=== PATIENT | female | born 1995 | race Caucasian/White ===

== ENCOUNTER 2020-05-21 19:09 | Emergency (ER) | payer BC ==
--- OUTSIDE RECORDS SUMMARY | 2020-05-21 19:12 | XMS REPORT | Summary of Care ---
:1995 Author Organization [facility] - [facility] Address [address] [place] [id number] Care Team Providers Name Role Phone Curt Bell MD Primary Care Provider Unavailable Reason for Visit Reason Comments Cough x 4 days Headache Shortness of Breath Encounter Details Date Type Department Care Team Description 02/28/2020 Urgent Care [facility] Family Jessica Canas FNP [address] [place] [id number] URI with cough and congestion (Primary D x); Medicine - [facility] Suspected Covid-19 Virus Infection; [address] [place] [address] Acute fly ntractable headache, [place] [phone] Allergies No Known Allergiesdocumented as of this encounter (statuses as of 02/28/2020) Medications Medication Sig Dispensed Refills Start Date End Date Status Take by mouth. 0 Acti ve NO122/IRON/FOLIC ACID ( MULTI ORAL) ibuprofen 600 mg Take 1 tablet by 60 tablet 1 09/29/2017 Active tablet mouth every 6 (six) hours as needed for Pain (scale 1-3) or Pain (scale 4-6) (Pain). Take with food or milk. HYDROcodone-acetam Take 1 tablet by 30 tablet 0 09/29/2017 Active inophen (NORCO) mouth every 6 (six) 10-325 mg tablet hours as needed for Pain (scale 1-3), Pain (scale 4-6) or Pain (scale 7-10). ibuprofen 800 mg Take 1 tablet by 60 tablet 0 09/29/2017 Active tablet mouth every 8 (eight) hours as needed for Pain (scale 1-3). brompheniramine-ps Take 5 mL by mouth 4 200 mL 0 02/28/2020 03/09/2020 Active eudoephedrine-DM (four) times daily (BROMFED DM) as needed for 2-30-10 mg/5 mL Congestion/Allergies syrupIndications: for up to 10 days. URI with cough and congestion albuterol Inhale 2 Puffs every 8.5 g 0 02/28/2020 03/29/20 20 Active (VENTOLIN HFA) 90 6 (six) hours as mcg/actuation needed for inhalerIndications Bronchospasm or : URI with cough Chest tightness for and congestion up to 30 days. documented as of this encounter (statuses as of 02/28/2020) Active Problems Problem Noted Date Liveborn by 09/29/2017 Postmaturity , 40-42 weeks gestation 09/26/19 18 Unfavorable cervix in term 09/26/2017 39 weeks gestation of 09/26/2017 documented as of this encounter (statuses as of 02/28/2020) Immunizations Name Administration Dates Next Due Rho (d) Immune Globulin 09/28/2017 documented as of this encounter Social History Tobacco Use Types Packs/Day Years Used Date Never Smoker Smokeless Tobacco: Never Used Alcohol Use Drinks/Week oz/Week Comments No Sex Assigned at Date Recorded Not on file Job Start Date Occupation Industry Not on file Not on file Not on file Travel History Travel Start Travel End No recent travel history available. COVID-19 Exposure Response Date Recorded In the last month, have you been in contact with No / Unsure 02/28/2020 3:56 PM CDT someone who was confirmed or suspected to have Coronavirus / COVID-19? documented as of this encounter Last Filed Vital Signs Vital Sign Reading Time Taken Comments Blood Pressure 123/71 02/28/2020 4:05 PM CDT Pulse 77 02/28/2020 4:05 PM CDT Temperature 37.2 C (99 F) 02/28/2020 4:05 PM CDT Respiratory Rate 17 02/28/2020 4:05 PM CDT Oxygen Saturation 99% 02/28/2020 4:05 PM CDT Inhaled Oxygen Concentration - - Weight 68 kg (150 lb) 02/28/2020 4:05 PM CDT Height 162.6 cm (5' 4") 02/28/2020 4:05 PM CDT Body Mass Index 25.75 02/28/2020 4:05 PM CDT documented in this encounter Patient Instructions Patient InstructionsAdriane Canas FNP - 02/28/2020 4:00 PM CDT Patient Education Self-Care for Headaches Most headaches aren't serious and can be relieved with self-care. But some headaches may be a sign of another health problem like eye trouble or high blood pressure. To find the best treatment, learn what kind of headaches you get. For tension headaches, self-care will usually help. To treat migraines, ask yourhealthcare providerfor advice. It is also possible to get both tension and migraine headaches. Self-care involves relieving the pain and avoiding headache triggers if you can. Ways to reduce pain and tension Try these steps: Apply a cold compress or ice pack to the pain site. Drink fluids. If nausea makes it hard to drink, try sucking on ice. Rest. Protect yourself from bright light and loud noises. Calm your emotions by imagining a peaceful scene. Massage tight neck, shoulder, and head muscles. To relax muscles, soak in a hot bath or use a hot shower. Use medicines Aspirin or other gayf-kvw-rmqrjon pain medicines, such as ibuprofen and acetaminophen, can relieve headache. Remember: Never give aspirin to anyone 18 years old or younger because of the risk of developing Hollie syndrome. Use pain medicines only when needed. Certain prescription medicines, if taken toooften, can lead to rebound headaches. Check with your healthcare provider or pharmacist about your medicines. Track your headaches Keeping a headache diary can help you and yourhealthcare provideridentify what's causing your headaches: Note when each headache happens. Identify your activities and the foods you've eaten6 to 8hours before the headache began. Look for any trends or "triggers." Signs of tension headache Any of the following can be signs: Dull pain or feeling of pressure in a tight band around your head Pain in your neck or shoulders Headache without a definite beginning or end Headache after an activity such as driving or working on a computer Signs of migraine Any of the following can be signs: Throbbing pain on one or both sides of your head Nausea or vomiting Extreme sensitivity to light, sound, and smells Bright spots, flashes, or other visual changes Pain or nausea so severe that you can't continue your daily activities Call yourhealthcare provider If you have any of the following symptoms, contact your healthcare provider: A headache that lingers after a recent injury or bump to the head. A fever with a stiff neck or pain when you bend your head toward your chest. A headache along with slurred speech, changes in your vision, or numbness or weakness in your arms or legs. A headache for longer than3 days. Frequent headaches,especially in the morning. Headaches with seizures Seek immediate medical attention if you have a headache that you would call "the worst headache you have ever had." [employer] reviewed this educational content on 11/03/201719990309-2942 [employer]. [address] [place] [address]. All rights reserved. This information is not intended as a substitute for professional medical care. Always follow your healthcare professional's instructions. Patient Education Viral Upper Respiratory Illness (Adult) You have a viral upper respiratory illness (URI), which is another term for the common cold. This illness is contagious during the first few days. It is spread through the air by coughing and sneezing.It may also be spread by direct contact (touching the sick person and then touching your own eyes, nose, or mouth). Frequent handwashing will decrease risk of spread. Most viral illnesses go away within 7 to 10 days with rest and simple home remedies. Sometimes the illness may last for several weeks. Antibiotics will not kill a virus, and they are generally not prescribed for this condition. Home care If symptoms are severe, rest at home for the first 2 to 3 days. When you resume activity, don't let yourself get too tired. Don't smoke. If you need help stopping, talk with your healthcare provider. Avoid being exposed to cigarette smoke (yours or others). You may use acetaminophen or ibuprofen to control pain and fever, unless another medicine was prescribed.If you have chronic liver or kidney disease, have ever had a stomach ulcer or gastrointestinal bleeding, or are taking blood- thinning medicines, talk with your healthcare provider before usingthese medicines. Aspirin should never be given to anyone under 18 years of age who is ill with a viral infection or fever. It may cause severe liver or brain damage. Your appetite may be poor, so a light diet is fine. Stay well hydrated by drinking 6 to 8 glassesof fluids per day (water, soft drinks, juices, tea, or soup). Extra fluids will help loosen secretions in the nose and lungs. Tiny-lpb-llbjzwl cold medicines will not shorten the length of time youre sick, but they may be helpful for the following symptoms: cough, sore throat, and nasal and sinus congestion. If you takeprescription medicines, ask your healthcare provider or pharmacist which pfkf-yby-zkrtrbe medicines are safe to use. (Note: Don't use decongestants if you have high blood pressure.) Follow-up care Follow up with your healthcare provider, or as advised. When to seek medical advice Call your healthcare provider right away if any of these occur: Cough with lots of colored sputum (mucus) Severe headache; face, neck, or ear pain Difficultyswallowingdue to throat pain Fever of 100.4F (38C) or higher, or as directed by your healthcare provider Call 911 Call 911 if any of these occur: Chest pain, shortness of breath, wheezing, or difficulty breathing Coughing up blood Very severe pain with swallowing, especially if it goes along with a muffled voice [employer] last reviewed this educational content on 02/03/201819996787-1737 [employer]. [address] [place] [address]. All rights reserved. This information is not intended as a substitute for professional medical care. Always follow your healthcare professional's instructions. documented in this encounter Progress Notes Adriane Canas FNP - 02/28/2020 4:00 PM CDT Cc: Chief Complaint Patient presents with Cough x 4 days Headache Shortness of Breath Maricruz Bacon is a 24 year old female. Patient is her with URI symptoms as detailed below. Cough Cough characteristics: Dry Sputum characteristics: Nondescript Severity: Mild Onset quality: Gradual Duration: 2 days Timing: Intermittent Progression: Unchanged Chronicity: New Smoker: no Context: not exposure to allergens and not weather changes Relieved by: Nothing Worsened by: Nothing Associated symptoms: headaches, shortness of breath and sinus congestion Associated symptoms: no chest pain and no wheezing Headaches: Severity: Mild Onset quality: Gradual Timing: Intermittent Progression: Unchanged Chronicity: New Shortness of breath: Severity: Mild Onset quality: Gradual Timing: Sporadic Progression: Resolved Allergies Maricruz has No Known Allergies. Medications Outpatient Medications Prior to Visit Medication Sig Dispense Refill HYDROcodone-acetaminophen (NORCO) 10-325 mg tablet Take 1 tablet by mouth every 6 (six) hours asneeded for Pain (scale 1-3), Pain (scale 4-6) or Pain (scale 7-10). 30 tablet 0 ibuprofen 600 mg tablet Take 1 tablet by mouth every 6 (six) hours as needed for Pain (scale 1-3) or Pain (scale 4-6) (Pain). Take with food or milk. 60 tablet 1 ibuprofen 800 mg tablet Take 1 tablet by mouth every 8 (eight) hours as needed for Pain (scale 1-3). 60 tablet 0 NO122/IRON/FOLIC ACID ( MULTI ORAL) Take by mouth. No facility-administered medications prior to visit. Histories Past Medical History: Diagnosis Date Anxiety Back pain with Esophageal reflux only and well controlled Past Surgical History: Procedure Laterality Date SECTION N/A 09/27/2017 Surgeon: Beny Bell MD; Location: [facility] OR Location TONSILLECTOMY Social History Socioeconomic History Marital status: Single Spouse name: Not on file Number of children: Not on file Years of education: Not on file Highest education level: Not on file Occupational History Not on file Social Needs Financial resource strain: Not on file Food insecurity: Worry: Not on file Inability: Not on file Transportation needs: Medical: Not on file Non-medical: Not on file Tobacco Use Smoking status: Never Smoker Smokeless tobacco: Never Used Substance and Sexual Activity Alcohol use: No Drug use: No Sexual activity: Not on file Lifestyle Physical activity: Days per week: Not on file Minutes per session: Not on file Stress: Not on file Relationships Social connections: Talks on phone: Not on file Gets together: Not on file Attends sabianist service: Not on file Active member of club or organization: Not on file Attends meetings of clubs or organizations: Not on file Relationship status: Not on file Intimate partner violence: Fear of current or ex partner: Not on file Emotionally abused: Not on file Physically abused: Not on file Forced sexual activity: Not on file Other Topics Concern Not on file Social History Narrative Not on file No family history on file. Review of Systems Constitutional: Negative. Eyes: Negative. Respiratory: Positive for cough and shortness of breath. Negative for apnea, choking, chest tightness and wheezing. Cardiovascular: Negative. Negative for chest pain, palpitations and leg swelling. Gastrointestinal: Negative. Skin: Negative. Neurological: Positive for headaches. Endocrine: Endocrine negative Vital Signs BP 123/71 | Pulse 77 | Temp 37.2 C (99 F) (Oral) | Resp 17 | Ht 5' 4" (1.626 m) | Wt 150 lb(68 kg) | LMP 02/24/2020 | SpO2 99% | BMI 25.75 kg/m Physical Exam Constitutional: She is oriented to person, place, and time. She appears well- developed and well-nourished. HENT: Head: Normocephalic. Right Ear: Hearing, tympanic membrane, external ear and ear canal normal. Left Ear: Hearing, tympanic membrane, external ear and ear canal normal. Nose: Nose normal. Right sinus exhibits no maxillary sinus tenderness and no frontal sinus tenderness. Left sinus exhibits no maxillary sinus tenderness and no frontal sinus tenderness. Mouth/Throat: Uvula is midline, oropharynx is clear and moist and mucous membranes are normal. No oropharyngeal exudate, posterior oropharyngeal edema or posterior oropharyngeal erythema. No tonsillar exudate. Neck: Normal range of motion. Neck supple. Cardiovascular: Normal rate, regular rhythm, normal heart sounds and intact distal pulses. Exam reveals no gallop and no friction rub. No murmur heard. Pulmonary/Chest: Effort normal and breath sounds normal. No respiratory distress. She has no wheezes. She has no rales. She exhibits no tenderness. Abdominal: Soft. Bowel sounds are normal. She exhibits no distension. There is no tenderness. Lymphadenopathy: Head (right side): No submental, no submandibular, no tonsillar, no preauricular and no posterior auricular adenopathy present. Head (left side): No submental, no submandibular, no tonsillar, no preauricular and no posterior auricular adenopathy present. She has no cervical adenopathy. Neurological: She is alert and oriented to person, place, and time. Skin: Skin is warm and dry. Capillary refill takes less than 2 seconds. No rash noted. No erythema. No pallor. Psychiatric: She has a normal mood and affect. Nursing note and vitals reviewed. Assessment/Plan 1. URI acute: covid test done pending result. In the meantime, quarantine in place, treat symptoms with OTC meds, Tylenol as needed but no NSAIDs.Stay in quarantine until symptoms subsides, plus 3 days afterwards or until you hear otherwise. Follow up with your PCP as needed, and if with worsening of symptoms, any respiratory distress, go to theER. Bromfed given for symptoms relief. Clinical reference for Homecare instructions reviewed , copy given. 2. Headache: exam unremarkable, covid test pending. May take Tylenol as needed as an abortive therapy. If worse, worse pain ever or new onset of symptoms, go to the ER. Plan of care, desired health behaviors, goals, and medication discussed with patient. Education resources provided and reviewed with AVS. Patient/guardian/family verbalized understanding & agrees to plan of care. This visit did not involve counseling and coordination that comprised more than 50% of the visit time. If applicable, the [place] [employer] database was accessed to review any controlled substance prescription claims data. The [employer] prescription claims data in [place] was reviewed to assess patient compliance with the medication treatment plan. Eva Chapman RN - 02/28/2020 4:00 PM CDT Maricruz Bacon is a 24 year old female in office for the following: Chief Complaint Patient presents with Cough Headache Shortness of Breath Patient educated on plan of care for visit, swabbing technique, risks and benefits of test and length of time to receive results. Verbal consent obtained to perform test. CDC Fact Sheet for Patients nCoV Diagnostic Panel dated 11/18/2019 provided. Patient reports taking theraflu day time and night All vitals taken. Allergies reviewed. All medications reviewed. Fall risk assessed. Level of pain 0. [id number] - [place], [place] - [address] [employer] Eva Gentile RN 02/28/2020 4:02 PM documented in this encounter Plan of Treatment Name Type Priority Associated Diagnoses Order S boo COVID-19 (PCR MOLECULAR LAB Routine Suspected Covid-1 9 Virus Expected: 02/28/2020, TESTING) Infection Expires: 2020 Health Maintenance Due Date Last Done Comments VARICELLA VACCINES (1 of 2 - 2-dose 1998 childhood series) MENINGOCOCCAL B VACCINES (1 of 2 - 2007 Risk Bexsero 2-dose series) DTaP,Tdap,and Td Vaccines (1 - 2008 Tdap) HPV VACCINES (1 - Female 2-dose 2008 series) Depression Screening 2009 CHLAMYDIA SCREENING 2013 PAP SMEAR 2018 INFLUENZA VACCINE (Season Ended) 2020 MENINGOCOCCAL VACCINE Aged Out No longer eligible based on patient's age to complete this topic PNEUMOCOCCAL 0-64 YEARS COMBINED Aged Out No longer eligible based on SERIES patient's age to complete this topic documented as of this encounter Results Not on filedocumented in this encounter Visit Diagnoses Diagnosis URI with cough and congestion - Primary Suspected Covid-19 Virus Infection Acute nonintractable headache, unspecifi ed headache type documented in this encounter Insurance Payer Benefit Plan Subscriber ID Effective Dates Phone Address Type / Group [facility] [id number] 2009-Breana [phone] [address] PPO/POS [id number] [place] [address] (Home) [employer] [phone] [place], [place] (Work) [id number] documented as of this encounter
--- OUTSIDE RECORDS SUMMARY | 2020-05-21 19:12 | XMS REPORT | Continuity of Care Document ---
:1995 Author Organization [facility] t Address [address] [place] [address] Care Team Providers Name Role Phone Pob1, [facility] Attending Clinician Unavailable Problems This patient has no known problems. Allergies, Adverse Reactions, Alerts This patient has no known allergies or adverse reactions. Medications This patient has no known medications. Procedures This patient has no known procedures. Encounters Start End Encounter Admission Attending Care Care Encounter Source Date/Time Date/Time Type Type Clinicians Facility Department ID 2020-02-28 2020-02-28 Urgent Pob1, Acute [facility] [id number] 15:50:11 16:10:11 [facility] [id number] [place] [id number] Miguel [id number] [address] Results This patient has no known results.
[2020-05-21 20:51] LABS: Absolute Lymphocytes (CBC) 2.4 K/uL (0.7-4.9); Basophils % 0.4 % (0-1.3); Lymphocytes % 26.7 % (15.3-44.8); MPV 8.2 fL (7.6-11.3); RBC Red Blood Cell Count 4.03 M/uL (3.86-4.86)
[2020-05-21 21:11] LABS: ALT/SGPT 20 U/L (12-78); AST/SGOT 13 U/L (15-37); Albumin 3.6 g/dL (3.4-5.0); Alkaline Phosphatase 46 U/L (45-117); BUN Blood Urea Nitrogen 10 mg/dL (7-18); Bicarbonate 24 mmol/L (21-32); Bilirubin Direct < 0.1 mg/dL (0-0.2); Bilirubin Total 0.2 mg/dL (0.2-1.0); Glucose Level 90 mg/dL (74-106); Lipase 59 U/L (73-393); Potassium 3.7 mmol/L (3.5-5.1); Sodium Level 139 mmol/L (136-145)
[2020-05-21] MEDS ORDERED: ONDANSETRON 4 MG/2 ML VIAL ONE (21:15)
[2020-05-21] MEDS ORDERED: NA CHLORIDE 0.9% 1,000 ML ONE (21:15)
[2020-05-21] MEDS ORDERED: ACETAMINOPHEN 500 MG TAB ONE (21:50)
[2020-05-21 22:02] LABS: Urine Blood TRACE (NEG); Urine Glucose NEGATIVE (NEG); Urine Protein NEGATIVE (NEG); Urine Specific Gravity 1.015 (1.005-1.030)
--- NOTE | 2020-05-21 23:21 | ER ---
Nurse's Notes [facility] Name: Maricruz Bacon Age: 25 yrs Sex: Female : 1995 Arrival Date: 05/21/2020 Time: 19:10 Bed 6 Private MD: Diagnosis: Hyperemesis gravidarum with metabolic disturbance Presentation: 05/21 19:20 Chief complaint: Patient states: N/V for 1 month, about 10 weeks . G2, P1. ll1 Severe KELLER and neck pain for 1 week. Left ear feels like there is fluid in it. No known fever, but feels hot at home. Coronavirus screen: Client denies travel out of the [place] in the last 14 days. At this time, the client does not indicate any symptoms associated with coronavirus-19. Ebola Screen: Patient denies travel to an Ebola-affected area in the 21 days before illness onset. Initial Sepsis Screen: Does the patient meet any 2 criteria? HR > 90 bpm. No. Patient's initial sepsis screen is negative. Risk Assessment: Do you want to hurt yourself or someone else? Patient reports no desire to harm self or others. Onset of symptoms was April 20, 2020. 19:20 Method Of Arrival: Ambulatory ll1 19:20 Acuity: DELLA 3 ll1 20:00 Initial Sepsis Screen: Does the patient have a suspected source of infection? No. rr5 Patient's initial sepsis screen is negative. Triage Assessment: 19:20 General: Appears uncomfortable, Behavior is calm, cooperative. Pain: Complains of pain ll1 in head Quality of pain is described as aching, Pain began 2-3 days ago. Is continuous. EENT: Ear canal clear on left ear Reports feels like there is fluid in her left ear, no obvious drainge. 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 Full function Gait is steady, Speech is normal, Facial symmetry appears normal, Reports dizziness. Cardiovascular: No deficits noted. Respiratory: No deficits noted. GI: Abdomen is flat, Bowel sounds present X 4 quads. Abd is soft and non tender X 4 quads. Reports nausea, vomiting. : No deficits noted. Musculoskeletal: Circulation, motion, and sensation intact. Capillary refill < 3 seconds, Reports head and neck pain. 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 - Social history:: Smoking status: Patient/guardian denies using tobacco, Stopped _ months ago 4 Patient/guardian denies using alcohol, street drugs. Screenin:00 Abuse screen: Denies threats or abuse. Denies injuries from another. Nutritional rr5 screening: No deficits noted. Tuberculosis screening: No symptoms or risk factors identified. Fall Risk IV access (20 points). Total Ferrera Fall Scale indicates No Risk (0-24 pts). Assessment: 20:30 General: Appears in no apparent distress. uncomfortable, Behavior is calm, cooperative. rr5 20:30 Pain: Complains of pain in head and neck Pain currently is 7 out of 10 on a pain scale. rr5 Quality of pain is described as aching, Pain began gradually, Is intermittent. Neuro: Level of Consciousness is awake, alert, obeys commands, Oriented to person, place, time, situation, Reports headache. Cardiovascular: Capillary refill < 3 seconds Patient's skin is warm and dry. Respiratory: Airway is patent Respiratory effort is even, unlabored, Respiratory pattern is regular, symmetrical. GI: Abdomen is round Reports nausea, vomiting. : No signs and/or symptoms were reported regarding the genitourinary system. EENT: No signs and/or symptoms were reported regarding the EENT system. Derm: Skin is intact, is healthy with good turgor, Skin temperature is warm. Musculoskeletal: Circulation, motion, and sensation intact. Capillary refill < 3 seconds. 21:50 Reassessment: Patient appears in no apparent distress at this time. Patient is alert, rr5 oriented x 3, equal unlabored respirations, skin warm/dry/pink. for pain medicine given PO. 23:33 Reassessment: Patient appears in no apparent distress at this time. Patient is alert, rr5 oriented x 3, equal unlabored respirations, skin warm/dry/pink. discharge instruction given and explained without complaints made. Vital Signs: 19:20 BP 139 / 79; Pulse 99; Resp 18; Temp 98.5; Pulse Ox 99% ; Pain 7/10; ll1 21:48 BP 110 / 86; Pulse 90; Resp 16; Pulse Ox 99% ; rr5 23:00 BP 112 / 73; Pulse 85; Resp 16; Pulse Ox 98% on R/A; rr5 23:33 BP 115 / 70; Pulse 80; Resp 19; Pulse Ox 99% ; rr5 ED Course: 19:10 Patient arrived in ED. cl3 19:23 Triage completed. ll1 19:24 Arm band placed on. ll1 20:21 Sundeep Crooks MD is Attending Physician. tw4 20:26 Elian Booth RN is Primary Nurse. rr5 20:30 Patient has correct armband on for positive identification. Bed in low position. Call rr5 light in reach. Pulse ox on. NIBP on. 20:37 Inserted saline lock: 20 gauge in left antecubital area, using aseptic technique. Blood rr5 collected. 23:33 No provider procedures requiring assistance completed. IV discontinued, intact, rr5 bleeding controlled, No redness/swelling at site. Pressure dressing applied. Administered Medications: 21:07 Drug: NS 0.9% 1000 ml Route: IV; Rate: 1 bolus; Site: left antecubital; rr5 22:10 Follow up: Response: No adverse reaction; IV Status: Completed infusion; IV Intake: rr5 1000ml 21:07 Drug: Zofran (Ondansetron) 4 mg Route: IVP; Site: left antecubital; rr5 22:00 Follow up: Response: No adverse reaction rr5 21:44 Drug: Tylenol 1000 mg Route: PO; rr5 22:40 Follow up: Response: No adverse reaction rr5 23:26 Drug: Lidoderm 5 % (700 mg/patch) 1 patches {Note: nape area temporal area.} Route: rr5 Topical; Site: affected area; 23:34 Follow up: Response: Medication administered at discharge. rr5 Intake: 22:10 IV: 1000ml; Total: 1000ml. rr5 Outcome: 23:21 Discharge ordered by . tw4 23:33 Discharged to home ambulatory. rr5 23:33 Condition: stable 23:33 Discharge instructions given to patient, Instructed on discharge instructions, follow up and referral plans. medication usage, Demonstrated understanding of instructions, follow-up care, medications, Prescriptions given X 2. 23:34 Patient left the ED. rr5 Signatures: Sundeep Crooks MD MD tw4 Elian Booth RN RN rr5 Karen Lee cl3 Modesto Lee RN RN ll1
--- NOTE | 2020-05-21 23:21 | EDPHYS ---
Physician Documentation [facility] Name: Maricruz Bacon Age: 25 yrs Sex: Female : 1995 Arrival Date: 05/21/2020 Time: 19:10 Bed 6 Private MD: ED Physician Sundeep Crooks HPI: 05/22 02:48 This 25 yrs old Female presents to ER via Ambulatory with complaints of tw4 Nausea/Vomiting, Dizziness. 02:48 The patient presents to the emergency department with nausea, vomiting. Onset: The tw4 symptoms/episode began/occurred 4 week(s) ago, and became worse today. Possible causes: . The symptoms are aggravated by nothing. The symptoms are alleviated by nothing. Severity of symptoms: At their worst the symptoms were moderate in the emergency department the symptoms are unchanged. The patient has not experienced similar symptoms in the past. 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 - Social history:: Smoking status: Patient/guardian denies using tobacco, Stopped _ months ago 4 Patient/guardian denies using alcohol, street drugs. ROS: 05/22 02:48 Constitutional: Negative for fever, chills, and weight loss, Eyes: Negative for injury, tw4 pain, redness, and discharge, ENT: Negative for injury, pain, and discharge, Cardiovascular: Negative for chest pain, palpitations, and edema, Respiratory: Negative for shortness of breath, cough, wheezing, and pleuritic chest pain. Abdomen/GI: Positive for nausea and vomiting, nausea, vomiting, and diarrhea, nausea, vomiting, Negative for abdominal pain, diarrhea, constipation, abdominal cramps, abdominal distension, anorexia, black/tarry stool. Exam: 02:48 Constitutional: This is a well developed, well nourished patient who is awake, alert, tw4 and in no acute distress. Head/Face: Normocephalic, atraumatic. Chest/axilla: Normal chest wall appearance and motion. Nontender with no deformity. No lesions are appreciated. Cardiovascular: Regular rate and rhythm with a normal S1 and S2. No gallops, murmurs, or rubs. Normal PMI, no JVD. No pulse deficits. Respiratory: Lungs have equal breath sounds bilaterally, clear to auscultation and percussion. No rales, rhonchi or wheezes noted. No increased work of breathing, no retractions or nasal flaring. Back: No spinal tenderness. No costovertebral tenderness. Full range of motion. MS/ Extremity: Pulses equal, no cyanosis. Neurovascular intact. Full, normal range of motion. Neuro: Awake and alert, GCS 15, oriented to person, place, time, and situation. Cranial nerves II-XII grossly intact. Motor strength 5/5 in all extremities. Sensory grossly intact. Cerebellar exam normal. Normal gait. Vital Signs: 05/21 19:20 BP 139 / 79; Pulse 99; Resp 18; Temp 98.5; Pulse Ox 99% ; Pain 7/10; ll1 21:48 BP 110 / 86; Pulse 90; Resp 16; Pulse Ox 99% ; rr5 23:00 BP 112 / 73; Pulse 85; Resp 16; Pulse Ox 98% on R/A; rr5 23:33 BP 115 / 70; Pulse 80; Resp 19; Pulse Ox 99% ; rr5 MDM: 20:21 Patient medically screened. tw4 05/22 02:48 Differential diagnosis: Nonspecific abd pain, gastritis, cholecystitis. Data reviewed: tw4 vital signs, nurses notes. Data reviewed: lab test result(s), electrolytes, hepatic panel, urinalysis. Data interpreted: Pulse oximetry: Interpretation: normal. Counseling: I had a detailed discussion with the patient and/or guardian regarding: the historical points, exam findings, and any diagnostic results supporting the discharge/admit diagnosis. Medication response: Zofran markedly relieved the patient's nausea. Response to treatment: and as a result, I will discharge patient. Special discussion: I discussed with the patient/guardian in detail that at this point there is no indication for admission to the hospital. It is understood, however, that if the symptoms persist or worsen the patient needs to return immediately for re-evaluation. 05/21 20:21 Order name: Basic Metabolic Panel; Complete Time: 21:27 tw4 05/21 21:27 Interpretation: Normal except: CRE 0.48. tw4 05/21 20:21 Order name: CBC with Diff; Complete Time: 21:27 tw4 05/21 21:28 Interpretation: Within normal limits. [facility] 05/21 20:21 Order name: Hepatic Function; Complete Time: 21:27 [facility] 05/21 21:28 Interpretation: Normal except: AST 13. [facility] 05/21 20:21 Order name: Lipase; Complete Time: 21:27 [facility] 05/21 21:28 Interpretation: Normal except: LIP 59. [facility] 05/21 21:50 Order name: Urine Dipstick--Ancillary (enter results); Complete Time: 22:10 [facility] 05/21 22:10 Interpretation: Normal except: UBLD TRACE. [facility] 05/21 21:50 Order name: Urine --Ancillary (enter results); Complete Time: 22:10 [facility] 05/21 22:11 Interpretation: Within normal limits: URINE PREG POS. [facility] 05/21 20:21 Order name: IV Saline Lock; Complete Time: 20:36 [facility] 05/21 20:21 Order name: Labs collected and sent; Complete Time: 20:36 [facility] Administered Medications: 05/21 21:07 Drug: NS 0.9% 1000 ml Route: IV; Rate: 1 bolus; Site: left antecubital; rr5 22:10 Follow up: Response: No adverse reaction; IV Status: Completed infusion; IV Intake: rr5 1000ml 21:07 Drug: Zofran (Ondansetron) 4 mg Route: IVP; Site: left antecubital; rr5 22:00 Follow up: Response: No adverse reaction rr5 21:44 Drug: Tylenol 1000 mg Route: PO; rr5 22:40 Follow up: Response: No adverse reaction rr5 23:26 Drug: Lidoderm 5 % (700 mg/patch) 1 patches {Note: nape area temporal area.} Route: rr5 Topical; Site: affected area; 23:34 Follow up: Response: Medication administered at discharge. rr5 Disposition: 05/21/20 23:21 Discharged to Home. Impression: Hyperemesis gravidarum with metabolic disturbance. - Condition is Stable. - Discharge Instructions: Hyperemesis Gravidarum, Morning Sickness. - Prescriptions for Diclegis 10- 10 mg Oral tablet,delayed release (DR/EC) - take 2 tablet by ORAL route once daily; 20 tablet. Zofran 4 mg Oral Tablet - take 1 tablet by ORAL route every 12 hours As needed; 20 tablet. - Medication Reconciliation Form, Thank You Letter, Antibiotic Education, Prescription Opioid Use form. - Follow up: Private Physician; When: Upon discharge from the Emergency Department; Reason: Recheck today's complaints, Continuance of care, Re-evaluation by your physician. - Problem is new. - Symptoms have improved. Signatures: Dispatcher [employer] EDMS Sundeep Crooks MD MD tw4 Elian Booth RN RN rr5 Modesto Lee RN RN ll1 Corrections: (The following items were deleted from the chart) 23:34 23:21 05/21/2020 23:21 Discharged to Home. Impression: Hyperemesis gravidarum with rr5 metabolic disturbance. Condition is Stable. Forms are Medication Reconciliation Form, Thank You Letter, Antibiotic Education, Prescription Opioid Use. Follow up: Private Physician; When: Upon discharge from the Emergency Department; Reason: Recheck today's complaints, Continuance of care, Re-evaluation by your physician. Problem is new. Symptoms have improved. tw4
[2020-05-21] MEDS ORDERED: LIDOCAINE 4% PATCH ONE (23:31)
[2020-05-21 23:39] VITALS: TEMP 98.5
[2020-05-21 23:42] VITALS: BP 115/70; O2SAT 99
== END 2020-05-21 23:34 | disposition home or self-care (01) ==
LOC: ER 19:09
DX: O21.1 Hyperemesis gravidarum with metabolic disturbance (principal)
CPT/HCPCS: 96361; 85025; 80048; 36415; 81025; 80076; 81003; 83690; 96374; 99284; J7030; J2405

== ENCOUNTER 2020-05-29 14:55 | Observation (INO) | payer BC ==
[2020-05-29] MEDS: D5LR 1,000 ML IV SCH ×2 (14:30→16:20)
--- OUTSIDE RECORDS SUMMARY | 2020-05-29 15:07 | XMS REPORT | Continuity of Care Document ---
:1995 Author Organization [facility] t Address [address] [place] [address] Care Team Providers Name Role Phone Alexiswilma DAO Deloris Attending Clinician Pob1, [facility] Attending Clinician Unavailable Problems This patient has no known problems. Allergies, Adverse Reactions, Alerts This patient has no known allergies or adverse reactions. Medications This patient has no known medications. Procedures This patient has no known procedures. Encounters Start End Encounter Admission Attending Care Care Encounter Source Date/Time Date/Time Type Type Clinicians Facility Department ID 2020-05-28 2020-05-28 Emergency Robyn Espinoza [facility] [id number] 09:58:00 11:05:00 Deloris Wiggins [id number] [place] [id number] [place] [id number] 2020-02-28 2020-02-28 Urgent Pob1, Acute [facility] [id number] 15:50:11 16:10:11 [facility] [id number] [place] [id number] [facility] [phone] [place] [address] Results This patient has no known results.
--- OUTSIDE RECORDS SUMMARY | 2020-05-29 15:07 | XMS REPORT | Summary of Care ---
:1995 Author Organization [facility] Address [address] [place] [id number] Care Team Providers Name Role Phone Curt Bell MD Primary Care Provider Unavailable Reason for Visit Reason Comments Sore Throat Auth/Cert Status Reason Specialty Diagnoses / Referred By Referred To Procedures Contact Contact Emergency Medicine [facility] Em ergency Dept [address] [place] [address] Fax: Encounter Details Date Type Department Care Team Description 05/28/2020 Emergency [facility]Emergency Robyn Espinoza, Acute otit is media, Department PAC unspecified otitis media [address] [place] [address] Dr sanders [address] type (Primary Dx) [place] [address] [facility] [address] [place] [address] Allergies No Known Allergiesdocumented as of this encounter (statuses as of 05/28/2020) Medications Medication Sig Dispensed Refills Start Date End Date Status Take by mouth. 0 Acti ve NO122/IRON/FOLIC ACID ( MULTI ORAL) ibuprofen 600 mg Take 1 tablet by 60 tablet 1 09/29/2017 Active tablet mouth every 6 (six) hours as needed for Pain (scale 1-3) or Pain (scale 4-6) (Pain). Take with food or milk. HYDROcodone-acetamino Take 1 tablet by 30 tablet 0 09/29/2017 Active phen (NORCO) 10-325 mouth every 6 mg tablet (six) hours as needed for Pain (scale 1-3), Pain (scale 4-6) or Pain (scale 7-10). ibuprofen 800 mg Take 1 tablet by 60 tablet 0 09/29/2017 Active tablet mouth every 8 (eight) hours as needed for Pain (scale 1-3). amoxicillin 500 mg Take 1 capsule 30 capsule 0 05/28/2020 10/0 11/2019 Active capsuleIndications: by mouth 3 Acute otitis media, (three) times unspecified otitis daily for 10 media type days. documented as of this encounter (statuses as of 05/28/2020) Active Problems Problem Noted Date Liveborn by 09/29/2017 Postmaturity , 40-42 weeks gestation 09/26/19 18 Unfavorable cervix in term 09/26/2017 39 weeks gestation of 09/26/2017 documented as of this encounter (statuses as of 05/28/2020) Immunizations Name Administration Dates Next Due Rho (d) Immune Globulin 09/28/2017 documented as of this encounter Social History Tobacco Use Types Packs/Day Years Used Date Never Smoker Smokeless Tobacco: Never Used Alcohol Use Drinks/Week oz/Week Comments No Sex Assigned at Date Recorded Not on file COVID-19 Exposure Response Date Recorded In the last month, have you been in contact with No / Unsure 05/28/2020 9:54 AM CDT someone who was confirmed or suspected to have Coronavirus / COVID-19? documented as of this encounter Last Filed Vital Signs Vital Sign Reading Time Taken Comments Blood Pressure 137/68 05/28/2020 9:56 AM CDT Pulse 112 05/28/2020 9:56 AM CDT Temperature 37.3 C (99.2 F) 05/28/2020 9:56 AM CDT Respiratory Rate 18 05/28/2020 9:56 AM CDT Oxygen Saturation 100% 05/28/2020 9:56 AM CDT Inhaled Oxygen Concentration - - Weight 65.8 kg (145 lb) 05/28/2020 9:56 AM CDT Height - - Body Mass Index 24.89 02/28/2020 4:05 PM CDT documented in this encounter Discharge Instructions Robyn Stoner, PAC - 05/28/2020MUCINEX with increased daily water intake for 7-10 days AttachmentsThe following attachments cannot be sent through Care Everywhere. Middle Ear Infection (Otitis Media) in Adults (Urdu)documented in this encounter ED Notes Roxann Armenta RN - 05/28/2020 9:54 AM CDTPt reports sore throat that she noticed this morning, states "I feel like my glands are swollen" andleft ear fullness x1 week. Denies cough/fever. Reports headache. Approx 11 weeks , LMP 02/08/2020. documented in this encounter Miscellaneous Notes ED Nurse Note - Roxann Armenta RN - 05/28/2020 11:40 AM CDTPt discharged with diagnosis of acute otitis media. Printed and verbal instructions reviewed with and given to patient. Prescriptions x1 given, recommended OTC Mucinex and increased daily water intake.Pt verbalized understanding of teaching and medications. Denies questions or concerns at this time. Pt ambulatory at discharge, no ataxia noted. Appears in no apparent distress. D Nurse Note - Roxann Armenta RN - 05/28/2020 9:59 AM CDTPt reports that she was seen at [facility] 2 days ago and had labs drawn was discharged with nausea medication. documented in this encounter Plan of Treatment Health Maintenance Due Date Last Done Comments VARICELLA VACCINES (1 of 2 - 2-dose 1998 childhood series) MENINGOCOCCAL B VACCINES (1 of 2 - 2007 Risk Bexsero 2-dose series) HPV VACCINES (1 - 2-dose series) 2008 Depression Screening 2009 CHLAMYDIA SCREENING 2013 DTaP,Tdap,and Td Vaccines (1 - 2016 Tdap) PAP SMEAR 2018 INFLUENZA VACCINE (#1) 2020 PNEUMOCOCCAL 0-64 YEARS COMBINED Aged Out No longer eligible based on SERIES patient's age to complete this topic documented as of this encounter Procedures Procedure Name Priority Date/Time Associated Diagnosis Comme nts NOTICE OF PRIVACY Routine 05/28/2020 9:51 AM CDT PRACTICES CONSENT/REFUSAL FOR Routine 05/28/2020 9:50 AM CDT DIAGNOSIS AND TREATMENT documented in this encounter Results Not on filedocumented in this encounter Visit Diagnoses Diagnosis Acute otitis media, unspecified otitis m edia type - Primary documented in this encounter Additional Health Concerns Infection Onset Date Last Indicated Resolved Time COVID-19 Confirmed 03/01/2020 03/01/2020 documented as of this encounter Insurance Payer Benefit Plan Subscriber ID Effective Dates Phone Address Type / Group [facility] [id number] 2009-Breana [phone] [address] PPO/POS [facility] [id number] [place] [address] (Work) [id number] documented as of this encounter
[2020-05-29 15:17] VITALS: BP 117/63; TEMP 99.5
[2020-05-29] MEDS ORDERED: PROMETHAZINE INJ 25 MG/ML AMP IV ONE (15:25)
[2020-05-29 15:40] VITALS: BMI 24.5
== END 2020-05-29 20:00 | disposition home or self-care (01) ==
LOC: 2ND-WC 14:55
PROVIDERS: ADMIT Specialist; ATTEND Specialist
DX: O21.0 Mild hyperemesis gravidarum (principal)
CPT/HCPCS: 36415; 84443; J2550; J7121 ×2; G0378 ×2

== ENCOUNTER 2022-01-01 19:43 | Emergency (ER) | payer OTHER, SELFPAY ==
--- OUTSIDE RECORDS SUMMARY | 2022-01-01 20:41 | XMS REPORT | Continuity of Care Document ---
:1995 Author Organization [facility] t Address [address] [place] [address] Care Team Providers Name Role Phone Aba Primary Care Physician FISH Attending Clinician Unavailable Marquez Duarte MD Attending Clinician Cora HARPER Attending Clinician Doctor Unassigned, Name Attending Clinician Unavailable Deloris Catalan Attending Clinician Pob1, Care Clinic Attending Clinician Unavailable Payers Payer Name Policy Type Policy Number Effective Date Expiration Date Sarai PRINCE [id number] 2016 HEALTH 00:00:00 Problems Condition Condition Condition Status Onset Resolution Last Treating Co mments Source Name Details Category Date Date Treatment Clinician Date Vaginal Vaginal Disease Active Univers discharge discharge 3-22 ity of 00:00: [address] BMI BMI Disease Active Univers 25.0-25.9, 25.0-25.9, 3-22 it y of adult adult 00:00: [address] Presence Presence Disease Active Unive rs of of 3-22 [place]y of [place] Medical contracept contracept Br anch marilyn device marilyn device Stress Stress Disease Active 2020-09 Univers incontinen incontinen 2-08 it y of ce ce 00:00: [address] Decreased Decreased Disease Active 2020-09 Uni vers libido libido 2-08 ity of 00:00: [address] Breakthrou Breakthrou Disease Active 2020-09 U nivers gh gh 2-08 ity of bleeding bleeding 00:00: [place] with IUD with IUD 00 [facility] Obesity Obesity Disease Active Univers (BMI (BMI 3-11 ity of 30-39.9) 30-39.9) 00:00: [place] [facility] LGSIL on LGSIL on Disease Active Unive rs Pap smear Pap smear 2-10 ity of of [place] [facility] Rh Rh Disease Active Univers negative, negative, 1-06 ity of antepartum antepartum [place] [facility] Previous Previous Disease Active 2019-09 Unive rs 0-14 ity of section section 00:00: [place] 00 [facility] Non-recurr Non-recurr Disease Resolve 2021-01-01 2021-01-01 Univers ent acute ent acute d 11-24 00:00:00 23:07:03 ity of suppurativ suppurativ [place] e otitis 00 [facility] media of media of [place] left ear left ear without without spontaneou spontaneou s rupture s rupture of of tympanic tympanic membrane membrane 39 weeks 39 weeks Disease Resolve 2020-12-25 2020-12-25 Univers gestation gestation d 3- 00:00:00 20:45:20 ity of of of 00:00: [place] 00 [facility] Liveborn Liveborn Disease Resolve 2020-12-25 2020-12-25 Univers , of , of d 3 00:00:00 20:45:25 ity of epsinoza [place] , 00 Me dical born in born in [facility] hospital by by delivery delivery 38 weeks 38 weeks Disease Resolve 2020-12-25 2020-12-25 Univers gestation gestation d 3- 00:00:00 20:45:28 ity of of of 00:00: [place] 00 [facility] High-risk High-risk Disease Resolve 2019-092020-12-25 2020-12-25 Univers d 0-14 00:00:00 20:45:32 ity of in third in third 00:00: [place] trimester trimester 00 [facility] Excessive Excessive Disease Resolve 2019-092020-12-25 2020-12-25 Univers weight weight d 0-14 00:00:00 20:45:31 ity of gain gain 00:00: [place] during during 00 Medical , , Br anch antepartum antepartum Nausea and Nausea and Disease Resolve 2019-092020-09-10 2020-09-10 Univers vomiting vomiting d 0-14 00:00:00 23:38:31 it y of during during 00:00: [place] 00 [facility] prior to prior to [place] 22 weeks 22 weeks gestation gestation Liveborn Liveborn Disease Resolve 2020-06-18 2020-06-18 Univers by by d - 00:00:00 21:19:39 it[facility] 00:[facility]: [facility] 39 weeks 39 weeks Disease Resolve 2020-06-18 2020-06-18 Univers gestation gestation d - 00:00:00 21:19:40 ity of of of 00:00: [place] 00 [facility] Postmaturi Postmaturi Disease Resolve 2020-06-18 2020-06-18 Univers ty ty d 09-26 00:00:00 21:19:40 ity of , , [place] 40-42 40-42 00 Medical weeks weeks [place] gestation gestation Unfavorabl Unfavorabl Disease Resolve 2020-06-18 2020-06-18 Univers e cervix e cervix d 09-26 00:00:00 21:19:43 it y of in term in term 00:00: [place] 00 [facility] Allergies, Adverse Reactions, Alerts Allergy Allergy Status Severity Reaction(s) Onset Inactive Treating Comm ents Source Name Type Date Date Clinician NO KNOWN Drug Active Univers ALLERGIE Class ity of S [facility] Social History Social Habit Start Date Stop Date Quantity Comments Source Exposure to Not sure [facility] SARS-CoV-2 [facility] (event) Branch Alcohol intake 2021-11-24 2021-11-24 Current University of 00:00:00 00:00:00 non-drinker of [facility] alcohol Branch (finding) Tobacco use and 2017-09-26 2017-09-26 Never used Universit y of exposure 00:00:00 00:00:00 [facility] Sex Ass[birth year] At [birth year] Universit y of 00:00:00 00:00:00 [facility] Smoking Status Start Date Stop Date Source Never smoker [place] [facility] [place] Medications Ordered Filled Start Stop Current Ordering Indication Dosage Frequency Signature Comments Components Source Medication Medication Date Date Medication? Clinician (SIG) Name Name No known No Univers medications 3-22 ity of 15:20: [place] 58 [facility] Branch acetaminoph Yes Previous 650mg Take 2 Univers en 325 mg 3-30 tablets by ity of tablet 00:00: section mouth [place] 00 every 6 Medical (six) Branch hours as needed for Pain (scale 1-3) or Pain (scale 4-6). Yes Previous 1{tbl} Take 1 U nivers vitamin 3-30 tablet by ity of w/FA tablet 00:00[place] 00 daily. Medical Branch ferrous Yes Previous 325mg Take 1 Uni vers sulfate 325 3-30 tablet by ity of mg (65 mg 00:00[place] 2 [place] iron[place] 00 (two) Medical tablet times Branch daily. ibuprofen Yes Previous 600mg Take 1 U nivers 600 mg 3-30 tablet by ity of tablet 00:00: section mouth [place] 00 every 6 Medical (six) Branch hours as needed (Pain). Take with food or milk. ibuprofen 2021- No [id number] 600mg Take 1 Univers 600 mg 3-30 03-22 tablet by ity of tablet 00:00: 00:00 mouth [place] 00 :00 every 6 Medical (six) Branch hours as needed (Pain). Take with food or milk. Immunizations Ordered Filled Immunization Date Status Comments Sourc e Immunization Name Name TDAP 2020-10-01 Completed University 00:00:00 [facility] TDAP 2020-10-01 Completed University of 00:00:00 [facility] TDAP 2020-10-01 Completed University 00:00:00 [facility] Rho (d) Immune 2020-09-16 Completed University of Globulin 00:00:00 [facility] Rho (d) Immune 2020-09-16 Completed University of Globulin 00:00:00 [facility] Rho (d) Immune 2020-09-16 Completed University of Globulin 00:00:00 [facility] Rho (d) Immune 2017-09-28 Completed University of Globulin 00:00:00 [facility] Rho (d) Immune 2017-09-28 Completed University of Globulin 00:00:00 [facility] Rho (d) Immune 2017-09-28 Completed University of Globulin 00:00:00 [facility] Vital Signs Vital Name Observation Time Observation Value Comments Source Systolic blood 2021-11-24 19:21:00 114 mm[Hg] Univer sity of pressure [facility] Diastolic blood 2021-11-24 19:21:00 75 mm[Hg] Unive rsity [facility] Heart rate 2021-11-24 19:21:00 80 /min [facility] Body temperature 2021-11-24 19:21:00 36.61 [facility] Respiratory rate 2021-11-24 19:21:00 18 /min [facility] Body height 2021-11-24 19:21:00 162.6 cm [facility] Body weight 2021-11-24 19:21:00 67.405 kg [facility] BMI 2021-11-24 19:21:00 25.51 kg/m2 [facility] Oxygen saturation in 2021-11-24 19:21:00 98 /min [facility] Arterial blood by [facility] Pulse oximetry Branch Procedures Procedure Date / Time Performed Performing Clinician [facility] 2021-01-01 05:01:00 Doctor Unassigned, No [facility] ULTRASOUND Name [facility] Plan of Care Planned Activity Planned Date Details Comments Source Future Scheduled 2030-10-01 DTaP,Tdap,and Td Univers [facility] Test 00:00:00 Vaccines (2 - Td) Medical Br anch [code = DTaP,Tdap,and Td Vaccines (2 - Td)] Future Scheduled 2021-11-13 Screening for [facility] Test 00:00:00 Chlamydia trachomatis Medica l Branch (procedure) [code = 062478946] Future Scheduled 2021-05-06 INFLUENZA VACCINE [facility] Test 00:00:00 (Season Ended) [code = Medic al Branch INFLUENZA VACCINE (Season Ended)] Future Scheduled 2018 Screening for University [facility] Test 00:00:00 [facility] cervix (procedure) [code = 952159024] Future Scheduled 2009 Depression screening Uni [facility] Test 00:00:00 (procedure) [code = Medical Branch [id number]] Future Scheduled 2008 HPV VACCINES (1 - [facility] [place] Test 00:00:00 2-dose series) [code = Medic al Branch HPV VACCINES (1 - 2-dose series)] Future Scheduled 2007 MENINGOCOCCAL B [facility] ty [facility] [place] Test 00:00:00 VACCINES (1 of 2 - Medical B ranch Risk Bexsero 2-dose series) [code = MENINGOCOCCAL B VACCINES (1 of 2 - Risk Bexsero 2-dose series)] Encounters Start End Encounter Admission Attending Care Care Encounter Source Date/Time Date/Time Type Type Clinicians Facility Department ID 2021-12-24 2021-12-24 Outpatient R SHEYLA FREEDMAN [facility] [id number] Univers 13:30:00 13:30:00 [id number] ity of [facility] 2021-12-24 2021-12-24 Outpatient R SHEYLA FREEDMAN [facility] [id number] Univers 13:30:00 13:30:00 ity of [facility] 2021-12-10 2021-12-10 Outpatient R SHEYLA FREEDMAN [facility] [id number] Univers 08:00:00 08:00:00 [id number] ity [facility] 2021-12-07 2021-12-07 Telephone Terri Duarte [facility] [id number] Univers 00:00:00 00:00:00 Marquez LOMELI [id number] i ty of [place] [id number] Kylie BHAKTA [id number] Ca dical [address] 2021-11-24 2021-11-24 [facility] [id number] Univers 14:00:00 14:49:04 Visit Marcelina GERMAIN [id number] it y of WOMEN'S [id number] [facility] [place] [facility] [id number] [facility] [address] Branch 2020-05-28 2020-05-28 Emergency Alexis, K [facility] [id number] 09:58:00 11:05:00 Deloris All[place] [id number] [place] [id number] [place] [id number] 084 2020-02-28 2020-02-28 Urgent Pob1, Acute [facility] [id number] 15:50:11 16:10:11 [facility] [id number] [place] [id number] [facility] [phone] nal 044 Office Building One Results This patient has no known results.
--- NOTE | 2022-01-01 23:51 | ER ---
Nurse's Notes [facility] Name: Maricruz Bacon Age: 26 yrs Sex: Female : 1995 Arrival Date: 01/01/2022 Time: 19:49 Bed 14 Private MD: Diagnosis: Acute sinusitis, unspecified Presentation: 01/01 20:31 Chief complaint: Patient states: "I just don't feel good. It hurts my lungs to take a ab2 deep breath and to cough. I also feel lightheaded and I've been bruising easily." Pt c/o SOB. Coronavirus screen: Vaccine status: Patient reports being unvaccinated. Client denies travel out of the [place] in the last 14 days. Ebola Screen: Patient negative for fever greater than or equal to 101.5 degrees Fahrenheit, and additional compatible Ebola Virus Disease symptoms Patient denies exposure to infectious person. Patient denies travel to an Ebola-affected area in the 21 days before illness onset. No symptoms or risks identified at this time. Initial Sepsis Screen: Does the patient meet any 2 criteria? No. Patient's initial sepsis screen is negative. Does the patient have a suspected source of infection? No. Patient's initial sepsis screen is negative. Risk Assessment: Do you want to hurt yourself or someone else? Patient reports no desire to harm self or others. Onset of symptoms is unknown. 20:31 Method Of Arrival: Ambulatory ab2 20:31 Acuity: DELLA 3 ab2 Triage Assessment: 20:35 Headache History: The patient has had previous headaches and this one is similar to ab2 previous episodes. General: Appears in no apparent distress. uncomfortable, Behavior is calm, cooperative, appropriate for age. Pain: Complains of pain in diaphragm. Pain: Pain currently is 7 out of 10 on a pain scale. Pain began 1 day ago. Also complains of shortness of breath. Neuro: Level of Consciousness is. Cardiovascular: Reports shortness of breath, Denies chest pain. Respiratory: Reports shortness of breath pain with cough pain with respiration Airway is patent Respiratory effort is even, unlabored, Respiratory pattern is regular, symmetrical. GI: No deficits noted. No signs and/or symptoms were reported involving the gastrointestinal system. : No deficits noted. No signs and/or symptoms were reported regarding the genitourinary system. Derm: Skin is intact, is healthy with good turgor, Skin is pink, warm \\T\\ dry. Historical: - Allergies: 20:34 No Known Allergies; ab2 - PMHx: 20:34 None; ab2 - PSHx: 20:34 section; ab2 - Immunization history:: Adult Immunizations up to date. - Social history:: Smoking status: Patient denies any tobacco usage or history of. Screenin:40 Abuse screen: Denies threats or abuse. Nutritional screening: No deficits noted. ke1 Tuberculosis screening: No symptoms or risk factors identified. Fall Risk None identified. Vital Signs: 20:31 BP 119 / 75; Pulse 89; Resp 17; Temp 98.0; Pulse Ox 97% on R/A; Weight 68.04 kg; Height ab2 5 ft. 4 in. (162.56 cm); Pain 7/10; 20:31 Body Mass Index 25.75 (68.04 kg, 162.56 cm) ab2 ED Course: 19:49 Patient arrived in ED. ja2 20:34 Triage completed. ab2 20:36 Arm band placed on right wrist. ab2 20:40 Yonny Solares PA is PHCP. cp 20:40 Migue Cornejo MD is Attending Physician. cp 20:40 Call light in reach. ke1 20:40 No provider procedures requiring assistance completed. ke1 20:40 Patient did not have IV access during this emergency room visit. ke1 21:05 Huong Schmitt, SYLVIA is Primary Nurse. ke1 22:19 XRAY Chest Pa And Lat (2 Views) In Process Unspecified. EDMS Administered Medications: No medications were administered Outcome: 23:50 Discharge ordered by . cp 01/02 00:02 Discharged to home ambulatory. ke1 Condition: patient needs to get home to take care of baby Discharge instructions given to patient. 00:08 Patient left the ED. ke1 Signatures: Dispatcher [employer] EDMS Yonny Solares PA PA cp Alexander, Jessica ja2 Sage Valderrama ab2 Huong Schmitt, SYLVIA RN ke1
--- NOTE | 2022-01-01 23:51 | EDPHYS ---
Physician Documentation [facility] Name: Maricruz Bacon Age: 26 yrs Sex: Female : 1995 Arrival Date: 01/01/2022 Time: 19:49 Bed 14 Private MD: ED Physician Migue Cornejo HPI: 01/01 21:50 This 26 yrs old Female presents to ER via Ambulatory with complaints of Cough, Sinus cp Pain, Wheezing < 1 Year, Shortness Of Breath. 21:50 The patient or guardian reports cough, that is intermittent, with no sputum. cp 21:50 Onset: The symptoms/episode began/occurred 2 day(s) ago. cp 21:50 Severity of symptoms: in the emergency department the symptoms are unchanged, despite cp home interventions. Associated signs and symptoms: Pertinent positives: sore throat, shortness of breath. Historical: - Allergies: 20:34 No Known Allergies; ab2 - PMHx: 20:34 None; ab2 - PSHx: 20:34 section; ab2 - Immunization history:: Adult Immunizations up to date. - Social history:: Smoking status: Patient denies any tobacco usage or history of. ROS: 22:00 Constitutional: Negative for body aches, fever, poor PO intake. cp 22:00 Eyes: Negative for injury, pain, redness, and discharge. cp 22:00 ENT: Positive for sinus congestion, sinus pain, sore throat, Negative for drainage from ear(s), ear pain, difficulty swallowing, difficulty handling secretions. 22:00 Cardiovascular: Negative for chest pain. 22:00 Respiratory: Positive for cough, shortness of breath, Negative for wheezing. 22:00 Abdomen/GI: Negative for abdominal pain, vomiting, diarrhea, constipation. 22:00 Skin: Negative for cellulitis, rash. 22:00 Neuro: Positive for headache, Negative for altered mental status. 22:00 All other systems are negative. Exam: 22:05 Constitutional: The patient appears in no acute distress, alert, awake, non-toxic, well cp developed, well nourished. 22:05 Head/Face: Normocephalic, atraumatic. cp 22:05 Eyes: Periorbital structures: appear normal, Conjunctiva: normal, no exudate, no injection, Sclera: no appreciated abnormality, Lids and lashes: appear normal, bilaterally. 22:05 ENT: External ear(s): are unremarkable, Ear canal(s): are normal, clear, TM's: bulging, is not appreciated, bilaterally, erythema, is not appreciated, bilaterally, Nose: is normal, Mouth: Lips: moist, Oral mucosa: pink and intact, moist, Posterior pharynx: Airway: no evidence of obstruction, patent, Tonsils: no enlargement, no exudate, swelling, is not appreciated, erythema, that is mild, exudate, is not appreciated. 22:05 Neck: ROM/movement: is normal, is supple, without pain, no range of motions limitations, no meningismus, Lymph nodes: no appreciated lymphadenopathy. 22:05 Chest/axilla: Inspection: normal. 22:05 Cardiovascular: Rate: normal, Rhythm: regular. 22:05 Respiratory: the patient does not display signs of respiratory distress, Respirations: normal, no use of accessory muscles, no retractions, labored breathing, is not present, Breath sounds: decreased breath sounds, are not appreciated, + upper airway congestion. wheezing: is not appreciated. 22:05 Abdomen/GI: Exam negative for discomfort, distension, guarding, Inspection: abdomen appears normal. 22:05 Back: pain, is absent, ROM is normal. Vital Signs: 20:31 BP 119 / 75; Pulse 89; Resp 17; Temp 98.0; Pulse Ox 97% on R/A; Weight 68.04 kg; Height ab2 5 ft. 4 in. (162.56 cm); Pain 7/10; 20:31 Body Mass Index 25.75 (68.04 kg, 162.56 cm) ab2 MDM: 21:03 Patient medically screened. cp 22:00 Differential Diagnosis: Bronchitis Influenza Upper Respiratory Infection Sinusitis cp Pharyngitis Otitis Media Viral Syndrome Pneumonia. 23:49 Data reviewed: vital signs, nurses notes, radiologic studies, plain films. cp 23:50 Counseling: I had a detailed discussion with the patient and/or guardian regarding: the cp historical points, exam findings, and any diagnostic results supporting the discharge/admit diagnosis, radiology results, to return to the emergency department if symptoms worsen or persist or if there are any questions or concerns that arise at home. 01/01 21:43 Order name: COVID-19/FLU A+B (Document "Date of Onset" if Symptomatic) cp 01/01 21:43 Order name: Strep cp 01/01 21:43 Order name: XRAY Chest Pa And Lat (2 Views) cp Administered Medications: No medications were administered Disposition: 01/02 07:11 Co-signature as Attending Physician, Migue Cornejo MD. [email or web address] Disposition Summary: 01/01/22 23:50 Discharge Ordered Location: Home cp Problem: new cp Symptoms: are unchanged cp Condition: Stable cp Diagnosis - Acute sinusitis, unspecified cp Followup: cp - With: Private Physician - When: 2 - 3 days - Reason: Worsening of condition Discharge Instructions: - Discharge Summary Sheet cp - Sinusitis, Adult cp Forms: - Medication Reconciliation Form cp - Thank You Letter cp - Antibiotic Education cp - Prescription Opioid Use cp Prescriptions: - Flonase Allergy Relief 50 mcg/actuation Nasal spray,suspension - spray 1 spray by INTRANASAL route once daily; 1 Device; Refills: 0, Product cp Selection Permitted - Amoxicillin 875 mg Oral Tablet - take 1 tablet by ORAL route every 12 hours for 10 days; 20 tablet; Refills: 0, cp Product Selection Permitted - Bromfed DM 2-30-10 mg/5 mL Oral syrup - take 10 milliliter by ORAL route every 6 hours; 180 milliliter; Refills: 0, cp Product Selection Permitted Signatures: Dispatcher [employer] EDMS Yonny Solares PA PA cp Holmes, Maurice, MD MD [email or web address] Sage Valderrama
[2022-01-02 01:05] LABS: SARS-COV-2 RT PCR NEGATIVE (NEGATIVE)
[2022-01-02 01:24] VITALS: BP 119/75; TEMP 98; O2SAT 97
--- NOTE | 2022-01-02 19:25 | RAD REPORT ---
EXAM DESCRIPTION: RAD - Chest Pa And Lat (2 Views) - 01/01/2022 10:18 pm CLINICAL HISTORY: Cough COMPARISON: None. FINDINGS: Two views of the chest are submitted. Cardiac silhouette appears normal. No focal parenchymal or pleural disease. There is no significant pulmonary vascular engorgement. IMPRESSION: No evidence of acute cardiopulmonary disease. Electronically signed by: Mervin Rodriguez 01/01/2022 11:02 PM CDT Due to temporary technical issues with the PACS/Fluency reporting system, reports are being signed by the in house radiologists without review as a courtesy to insure prompt reporting. The interpreting radiologist is fully responsible for the content of the report.
== END 2022-01-02 00:08 | disposition home or self-care (01) ==
LOC: ER 19:43
DX: J01.90 Acute sinusitis, unspecified (principal); Z20.822 Contact with and (suspected) exposure to COVID-19
CPT/HCPCS: 87070; 87081; 0240U; 71046; 99283

== ENCOUNTER 2022-03-22 17:46 | Emergency (ER) | payer OTHER ==
[2022-03-22 18:59] LABS: Absolute Lymphocytes (CBC) 2.3 K/uL (0.7-4.9); Hematocrit 43.1 % (36.0-45.0); Lymphocytes % 37.9 % (15.3-44.8); MCV 90.8 fL (80-100); MPV 7.8 fL (7.6-11.3); RBC Red Blood Cell Count 4.75 M/uL (3.86-4.86)
[2022-03-22 19:06] LABS: BUN Blood Urea Nitrogen 15 mg/dL (7-18); Bicarbonate 25 mmol/L (21-32); Glomerular Filtration Rate 121 ml/min (=/>90); Glucose Level 102 mg/dL (74-106); Sodium Level 139 mmol/L (136-145)
[2022-03-22 19:08] LABS: HCG, Quantitative < 1 mIU/mL (1-3)
--- NOTE | 2022-03-22 19:19 | RAD REPORT ---
EXAM DESCRIPTION: US - Transvaginal Study Probe - 03/22/2022 7:08 pm CLINICAL HISTORY: Pelvic pain COMPARISON: 2017 FINDINGS: The uterus measures 10 x 4 x 5 cm. A fibroid is not seen. The endometrial stripe is normal thickness An IUD is present within the endometrium in good position. The ovaries are normal in size and echotexture. The right and left adnexa unremarkable No significant free fluid is seen. IMPRESSION: Unremarkable pelvic ultrasound
[2022-03-22] MEDS ORDERED: NA CHLORIDE 0.9% 1,000 ML ONE (19:30)
[2022-03-22] MEDS ORDERED: KETOROLAC 30 MG/ML INJ ONE (19:30)
[2022-03-22 19:33] LABS: Urine Blood 2+ (Negative); Urine Glucose Negative (Negative); Urine Protein Negative (Negative); Urine Specific Gravity 1.025 (1.005-1.030); Urine pH 5.5 (5.0-7.0)
[2022-03-22 19:51] LABS: Urine Specific Gravity/Preg 1.025 (1.005-1.030)
--- NOTE | 2022-03-22 19:52 | EDPHYS ---
Physician Documentation [facility] Name: Maricruz Bacon Age: 27 yrs Sex: Female : 1995 Arrival Date: 03/22/2022 Time: 17:48 Bed 11 Private MD: ED Physician Jeramy Larkin HPI: 03/22 18:10 This 27 yrs old Female presents to ER via Ambulatory with complaints of Vaginal jh7 Bleeding, Abdominal Cramping. 18:10 Patient complains of vaginal bleeding with clots and lower abdominal cramping since jh7 yesterday. The patient states that she has a history of irregular cycles, and had a copper IUD placed 1 year ago. States that this is the heaviest. She has had and is use half a box of tampons today. Reports that she is supposed to get her IUD out soon. Her fish receiver is Dr. Duarte.. 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 - Social history:: Smoking status: Patient reports the use of cigarette tobacco products, denies chronic smoking, but will smoke occasionally. ROS: 18:10 Constitutional: Negative for fever, chills, and weight loss, Cardiovascular: Negative jh7 for chest pain, palpitations, and edema, Respiratory: Negative for shortness of breath, cough, wheezing, and pleuritic chest pain, Back: Negative for injury and pain, Skin: Negative for injury, rash, and discoloration, Neuro: Negative for headache, weakness, numbness, tingling, and seizure. 18:10 Abdomen/GI: Positive for abdominal cramps, Negative for nausea, vomiting, and diarrhea. 18:10 : Positive for vaginal bleeding, Negative for pelvic pain. 18:10 All other systems are negative. Exam: 18:10 Cardiovascular: Regular rate and rhythm with a normal S1 and S2. No gallops, murmurs, jh7 or rubs. Normal PMI, no JVD. No pulse deficits. Respiratory: Lungs have equal breath sounds bilaterally, clear to auscultation and percussion. No rales, rhonchi or wheezes noted. No increased work of breathing, no retractions or nasal flaring. Abdomen/GI: Soft, non-tender, with normal bowel sounds. No distension or tympany. No guarding or rebound. No evidence of tenderness throughout. Back: No spinal tenderness. No costovertebral tenderness. Full range of motion. Skin: Warm, dry with normal turgor. Normal color with no rashes, no lesions, and no evidence of cellulitis. MS/ Extremity: Pulses equal, no cyanosis. Neurovascular intact. Full, normal range of motion. Neuro: Awake and alert, GCS 15, oriented to person, place, time, and situation. Motor strength 5/5 in all extremities. Sensory grossly intact. Normal gait. 18:10 Constitutional: The patient appears uncomfortable. Vital Signs: 18:26 BP 124 / 90; Pulse 94; Resp 16; Temp 98.2; Pulse Ox 100% on R/A; Weight 65.77 kg; tp1 Height 5 ft. 4 in. (162.56 cm); Pain 6/10; 19:41 BP 121 / 86; Pulse 89; Resp 16; Pulse Ox 100% on R/A; ld1 18:26 Body Mass Index 24.89 (65.77 kg, 162.56 cm) tp1 MDM: 18:10 Patient medically screened. [facility] 19:53 Differential diagnosis: ectopic , ovarian cyst, ruptured ectopic , 7 uterine fibroids. Data reviewed: vital signs, nurses notes, lab test result(s), radiologic studies, ultrasound. Data interpreted: Pulse oximetry: is 100 %. Interpretation: normal. Counseling: I had a detailed discussion with the patient and/or guardian regarding: the historical points, exam findings, and any diagnostic results supporting the discharge/admit diagnosis, the need for outpatient follow up, an OB/Gyne specialist. Response to treatment: the patient's symptoms have markedly improved after treatment. ED course: Advised the patient to follow-up with Dr. Duarte to get her IUD removed. Advised to use ibuprofen as needed for pain, and tramadol only for breakthrough pain. If her symptoms persist, or worsen, she may return to the ER for further eval. The patient understood the plan of care.. 03/22 18:08 Order name: Abo/rh Typing; Complete Time: 19:20 [facility] 03/22 18:08 Order name: Basic Metabolic Panel; Complete Time: 19:10 [facility] 03/22 18:08 Order name: CBC with Diff; Complete Time: 19:10 [facility] 03/22 18:08 Order name: Quantitative Hcg; Complete Time: 19:10 [facility] 03/22 19:34 Order name: Urine Dipstick-Ancillary; Complete Time: 19:37 EDMS 03/22 19:37 Order name: Urine --Ancillary (enter results); Complete Time: 19:52 wm 03/22 18:08 Order name: IV Saline Lock; Complete Time: 18:43 [facility] 03/22 18:08 Order name: Labs collected and sent; Complete Time: 18:43 [facility] 03/22 18:08 Order name: Urine Dipstick-Ancillary (obtain specimen); Complete Time: 19:32 [facility] 03/22 18:08 Order name: Urine Test (obtain specimen); Complete Time: 19:32 [facility] 03/22 18:52 Order name: Transvaginal Study Probe; Complete Time: 19:37 EDMS Administered Medications: 19:27 Drug: NS 0.9% 1000 ml Route: IV; Rate: 1 bolus; Site: right antecubital; ld1 19:27 Drug: Ketorolac 30 mg Route: IVP; Site: right antecubital; ld1 Disposition: 22:19 Co-signature as Attending Physician, Jeramy STERLING was immediately available on-site ms3 in the Emergency Department for consultation in the care of the patient. . Disposition Summary: 03/22/22 19:51 Discharge Ordered Location: Home [facility] Problem: new [facility] Symptoms: have improved [facility] Condition: Stable [facility] Diagnosis - Abnormal uterine and vaginal bleeding, unspecified [facility] Followup: [facility] - With: Private Physician - When: 2 - 3 days - Reason: Recheck today's complaints Discharge Instructions: - Discharge Summary Sheet [facility] - Abnormal Uterine Bleeding [facility] - Dysfunctional Uterine Bleeding [facility] Forms: - Medication Reconciliation Form [facility] - Thank You Letter [facility] - Prescription Opioid Use [facility] Prescriptions: - Tramadol 50 mg Oral Tablet - take 1 tablet by ORAL route every 8 hours as needed; 12 tablet; Refills: 0, jh7 Product Selection Permitted Signatures: Dispatcher [facility] EDMS Jeramy Larkin DO DO ms3 Nickie Garcia RN RN ld1 Keena Bell tp1 Audrey Santiago, SCREEN MAKING TECHNICIAN SCREEN MAKING TECHNICIAN jh7 Corrections: (The following items were deleted from the chart) 18:52 18:09 Pelvis Complete+US.RAD.HERNANDEZ ordered. EDMS EDMS
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
[2022-03-22 20:11] VITALS: TEMP 98.2; O2SAT 100
[2022-03-22 20:12] VITALS: BP 121/86
== END 2022-03-22 20:06 | disposition home or self-care (01) ==
LOC: ER 17:46
DX: N93.9 Abnormal uterine and vaginal bleeding, unspecified (principal); F17.210 Nicotine dependence, cigarettes, uncomplicated
CPT/HCPCS: 85025; 80048; 36415; 86900; 81025; 86901; 84702; 81003; 76830; 96374; 99284; J7030

== ENCOUNTER 2022-08-22 17:55 | Emergency (ER) | payer OTHER ==
--- OUTSIDE RECORDS SUMMARY | 2022-08-22 18:00 | XMS REPORT | Continuity of Care Document ---
:1995 Author Organization [facility] t Address [address] [place] [address] Care Team Providers Name Role Phone Tripp Troncoso Primary Care Physician THOMAS VITAL Attending Clinician Unavailable SHEYLA FREEDMAN Attending Clinician Unavailable Thomas Vital MD Attending Clinician JACKIE MORE Attending Clinician Unavailable MARCELINA SHIPLEY Attending Clinician Unavailable MARCELINA SHIPLEY Attending Clinician Unavailable Doctor Unassigned, [place] Attending Clinician Unavailable Dusty Pinon MD Attending Clinician Jackie More PA-C Attending Clinician Nurse, [facility] Attending Clinician Unavailable Maria L Faust MD, Leonard Attending Clinician Only, Adc Test Attending Clinician Unavailable Pob, [facility] Lab Main Attending Clinician Unavailable 2, Adc Lab Attending Clinician Unavailable Ultrasound, Adc Mfm Attending Clinician Unavailable Osvaldo Cronin MD Attending Clinician Karie Rojas RN Attending Clinician Unavailable Robyn Catalan Attending Clinician Pob1, Acute Care Clinic Attending Clinician Unavailable Adriane Wang Attending Clinician ADRIANE ABREU Attending Clinician Unavailable THOMAS VITAL Admitting Clinician Unavailable Thomas Vital MD Admitting Clinician Payers Payer Name Policy Type Policy Number Effective Date Expiration Date Sarai [employer] [id number] 2020 HEALTH 00:00:00 [employer] [place] [id number] 2009 00:00:00 [place] [id number] 2020 00:00:00 Problems Condition Condition Condition Status Onset Resolution Last Treating Co mments Source Name Details Category Date Date Treatment Clinician Date Vaginal Vaginal Disease Active Univers discharge discharge 3-22 ity of 00:00: [place] [facility] BMI BMI Disease Active Univers 25.0-25.9, 25.0-25.9, 3-22 it y of adult adult 00:00: [place] [facility] Presence Presence Disease Active Unive rs of of 3-22 [place]y of [place] Medical contracept contracept Br anch marilyn device marilyn device Stress Stress Disease Active 2020-09 Univers incontinen incontinen 2-08 it y of ce ce 00:00: [place] [facility] Decreased Decreased Disease Active 2020-09 Uni vers libido libido 2-08 ity of 00:00: [place] [facility] Breakthrou Breakthrou Disease Active 2020-09 U nivers gh gh 2-08 ity of bleeding bleeding 00:00: [place] with IUD with IUD 00 Medica l Branch Obesity Obesity Disease Active Univers (BMI (BMI 3-11 ity of 30-39.9) 30-39.9) 00:00: [place] [facility] LGSIL on LGSIL on Disease Active Unive rs Pap smear Pap smear 2-10 ity of of cervix of [place] [facility] [place] Rh Rh Disease Active Univers negative, negative, 1-06 ity of antepartum antepartum 00:[place] [facility] [place] Previous Previous Disease Active 2019-09 Unive rs 0-14 ity of section section 00:00: [place] [id number] Medical Branch Non-recurr Non-recurr Disease Resolve 2021-01-01 2021-01-01 Univers ent acute ent acute d 3-22 00:00:00 23:07:03 [place]y of suppurativ suppurativ [place]itis e otitis 00 Medica l media of media of [place] left ear left ear without without spontaneou spontaneou s rupture s rupture of of tympanic tympanic membrane membrane 39 weeks 39 weeks Disease Resolve 2020-12-25 2020-12-25 Univers gestation gestation d 3- 00:00:00 20:45:20 ity of of of 00:00: [place] 00 [facility] Liveborn Liveborn Disease Resolve 2020-12-25 2020-12-25 Univers , of , of d 3 00:00:00 20:45:25 ity of espinoza espinoza [place] , , 00 Me dical born in born in [facility] by by delivery delivery 38 weeks 38 weeks Disease Resolve 2020-12-25 2020-12-25 Univers gestation gestation d 3 00:00:00 20:45:28 ity of of of 00:00: 00 [facility] High-risk High-risk Disease Resolve 2019-092020-12-25 2020-12-25 Univers d 0-14 00:00:00 20:45:32 ity of in third in third 00:00: [place] trimester trimester 00 [facility] Excessive Excessive Disease Resolve 2019-092020-12-25 2020-12-25 Univers weight weight d 0-14 00:00:00 20:45:31 ity of gain gain 00:00: [place] during during 00 Medical , , Br anch antepartum antepartum Nausea and Nausea and Disease Resolve 2019-092020-09-10 2020-09-10 Univers vomiting vomiting d 0-14 00:00:00 23:38:31 it y of during during 00:00: [place] 00 [facility] prior to prior to Branch 22 weeks 22 weeks gestation gestation Liveborn Liveborn Disease Resolve 2020-06-18 2020-06-18 Univers by by d 1- 00:00:00 21:19:39 [place] of [place] 00 [facility] 39 weeks 39 weeks Disease Resolve 2020-06-18 2020-06-18 Univers gestation gestation d 1- 00:00:00 21:19:40 ity of of of 00:00: [place] 00 [facility] Postmaturi Postmaturi Disease Resolve 2020-06-18 2020-06-18 Univers ty ty d 09-26 00:00:00 21:19:40 ity of , , [place] 40-42 40-42 00 Medical weeks weeks [place] gestation gestation Unfavorabl Unfavorabl Disease Resolve 2020-06-18 2020-06-18 Univers e cervix e cervix d 09-26 00:00:00 21:19:43 it y of in term in term 00:00: [place] 00 [facility] Allergies, Adverse Reactions, Alerts Allergy Allergy Status Severity Reaction(s) Onset Inactive Treating Comm ents Source Name Type Date Date Clinician NO KNOWN Drug Active Univers ALLERGIE Class ity of [facility] Social History Social Habit Start Date Stop Date Quantity Comments Source Exposure to Not sure [facility] SARS-CoV-2 [facility] (event) [place] Alcohol intake 2021-11-24 2021-11-24 [facility] 00:00:00 00:00:00 non-drinker of [facility] alcohol (finding) [place] Tobacco use and 2017-09-26 2017-09-26 Smokeless tobacco Un iversity of exposure 00:00:00 00:00:00 non-user [facility] Sex Assigned At [birth year] Universit y of 00:00:00 00:00:00 [facility] Smoking Status Start Date Stop Date Source Never smoked tobacco [facility] Medications Ordered Filled Start Stop Current Ordering Indication Dosage Frequency Signature Comments Components Source Medication Medication Date Date Medication? Clinician (SIG) Name Name No known No Univers medications 3-22 ity of 15:20: [address] No known No No known Unive rs medications 3-22 medication it y of 15:20: s [address] acetaminoph Yes Previous 650mg Take 2 Univers en 325 mg 3-30 tablets by ity of tablet 00:00: section mouth [place] 00 every 6 Medical (six) Branch hours as needed for Pain (scale 1-3) or Pain (scale 4-6). Yes Previous 1{tbl} Take 1 U nivers vitamin 3-30 tablet by ity of w/FA tablet 00:00[place] 00 daily. Medical Branch ferrous 2020- Yes Previous 325mg Take 1 Uni vers [...] (Pain). Take with food or milk. ibuprofen 2- No [id number] 600mg Take 1 Univers 600 mg 3-30 -22 tablet by ity of tablet 00:00: 00:00 mouth [place] 00 :00 every 6 Medical (six) Branch hours as needed (Pain). Take with food or milk. Immunizations Ordered Filled Immunization Date Status Comments [facility] Immunization Name Name TDAP 2020-10-01 Completed University of 00:00:00 [facility] TDAP 2020-10-01 Completed University of 00:00:00 [facility] TDAP 2020-10-01 Completed University of 00:00:00 [facility] TDAP 2020-10-01 Completed University of 00:00:00 [facility] Rho (d) Immune 2020-09-16 Completed University of Globulin 00:00:00 [facility] Rho (d) Immune 2020-09-16 Completed University of Globulin 00:00:00 [facility] Rho (d) Immune 2020-09-16 Completed University of Globulin 00:00:00 [facility] Rho (d) Immune 2020-09-16 Completed University of Globulin 00:00:00 [facility] Rho (d) Immune 2017-09-28 Completed University of Globulin 00:00:00 [facility] Rho (d) Immune 2017-09-28 Completed University of Globulin 00:00:00 [facility] Rho (d) Immune 2017-09-28 Completed University of Globulin 00:00:00 [facility] Rho (d) Immune 2017-09-28 Completed University of Globulin 00:00:00 [facility] Vital Signs Vital Name Observation Time Observation Value Comments Source Systolic blood 2021-11-24 19:21:00 114 mm[Hg] Univer sity of pressure [facility] Diastolic blood 2021-11-24 19:21:00 75 mm[Hg] Unive rsity of pressure [facility] Heart rate 2021-11-24 19:21:00 80 /min Universi [facility] [place] [facility] Body temperature 2021-11-24 19:21:00 36.61 Lilian [facility] 2021-11-24 19:21:00 18 /min [facility] Body height 2021-11-24 19:21:00 162.6 cm [facility] Body weight 2021-11-24 19:21:00 67.405 kg [facility] BMI 2021-11-24 19:21:00 25.51 kg/m2 [facility] Oxygen saturation in 2021-11-24 19:21:00 98 /min [facility] Arterial blood by [facility] Pulse oximetry Branch Procedures Procedure Date / Time Performed Performing Clinician [facility] ESL [facility] 2021-01-01 05:01:00 Doctor Unassigned, No [facility] [place] [place] [facility] Name Medical Branch Plan of Care Planned Activity Planned Date Details Comments Source Future Scheduled 2030-10-01 DTaP,Tdap,and Td Univers ity [facility] [place] [facility] Test 00:00:00 Vaccines (2 - Td) Medical Br anch [code = DTaP,Tdap,and Td Vaccines (2 - Td)] Future Scheduled 2021-11-13 Screening for [facility] Test 00:00:00 Chlamydia trachomatis Medica l Branch (procedure) [code = 031438230] Future Scheduled 2021-05-06 INFLUENZA VACCINE Univer sity [facility] [place] [facility] Test 00:00:00 (Season Ended) [code = Medic al Branch INFLUENZA VACCINE (Season Ended)] Future Scheduled 2018 Screening for University [facility] [place] [facility] Test 00:00:00 malignant neoplasm of Medica l Branch cervix (procedure) [code = 364105175] Future Scheduled 2009 Depression screening Uni [facility] Test 00:00:00 (procedure) [code = Medical Branch [id number]] Future Scheduled 2008 HPV VACCINES (1 - Univer sity [facility] [place] [facility] Test 00:00:00 2-dose series) [code = Medic al Branch HPV VACCINES (1 - 2-dose series)] Future Scheduled 2007 MENINGOCOCCAL B [facility] [place] Test 00:00:00 VACCINES (1 of 2 - Medical B ranch Risk Bexsero 2-dose series) [code = MENINGOCOCCAL B VACCINES (1 of 2 - Risk Bexsero 2-dose series)] Encounters Start End Encounter Admission Attending Care Care Encounter Source Date/Time Date/Time Type Type Clinicians Facility Department ID 2021-07-07 Emergency [facility] [id number] Univers 07:07:37 ity [facility] 2021-07-05 Outpatient P THOMAS VITAL [facility] YOLY [id number] Univers 07:37:18 ity [facility] 2021-07-04 Emergency [facility] [id number] Univers 22:32:56 ity [facility] 2021-07-03 Emergency [facility] [id number] Univers 23:56:07 ity [facility] 2021-07-03 [facility] [id number] [facility] 2022-05-06 2022-05-06 Outpatient SHEYLA FORMAN [facility] [id number] Univers 13:30:00 13:30:[facility] 2022-03-22 2022-03-22 Telephone Vital Thomas [facility] [id number] Univers 00:00:00 00:00:00 Marquez LOMELI [id number] i ty [facility] [id number] Kylie s PROFESSIO [phone] Az dical [address] 2022-01-27 2022-01-27 Outpatient Demond MORE [facility] [id number] Univers 15:00:00 15:00:00 [facility] 2022-01-27 2022-01-27 Outpatient Demond MORE [facility] [id number] Univers 15:00:00 15:00:00 [facility] 2022-01-27 2022-01-27 Outpatient Demond MORE [facility] [id number] Univers 15:00:00 15:00:00 [facility] 2021-12-24 2021-12-24 Outpatient SHEYLA FORMAN [facility] [id number] Univers 13:30:00 13:30:00 ity of [facility] 2021-12-14 2021-12-14 Outpatient R SHEYLA FREEDMAN [facility] [id number] Univers 13:30:00 13:30:00 ity of [facility] 2021-12-07 2021-12-07 Telephone Thomas Vital [facility] [id number] Univers 00:00:00 00:00:00 Marquez LOMELI [id number] i ty of [facility] [id number] [phone] Az dical NAL [address] [place] [address] 2021-11-24 2021-11-24 Outpatient R MARCELINA SHIPLEY [facility] B [id number] Univers 14:00:00 14:49:04 [facility] 2021-11-24 2021-11-[address] [facility] [id number] Univers 14:00:00 14:49:04 Visit Marcelina GER[place] [id number] it y of W[place] [id number] [place] [phone] [address] 2021-11-24 2021-11-[address] Case Cor[address] [facility] [id number] Univers 00:00:00 00:00:00 Management Marcelina GERMAIN [id number] ity of [place] [id number] [place] [id number] [address] 2021-11-23 2021-11-23 Telephone Thomas Vital [facility] [id number] Univers 00:00:00 00:00:00 Marquez LOMELI [id number] i ty of [facility] [id number] [phone] Az dical NAL [address] [place] [address] 2021-11-10 2021-11-10 Outpatient R THOMAS VITAL [facility] [id number] Univers 13:30:00 13:30:00 ity of [facility] 2021-10-16 2021-10-16 Orders Doctor DELILAH 1.2.840.114 [id number] Univers 00:00:00 00:00:00 Only Unassigned, ANAIS [id number] ity of [place] [facility] 4.2.7.2.686 Anton as [phone] [address] 2021-08-13 2021-08-13 Outpatient R [facility] [id number] Univers 14:30:00 14:30:00 ity of [facility] 2021-08-13 2021-08-13 Outpatient R [facility] [id number] Univers 14:30:00 14:30:00 ity [facility] 2021-08-12 2021-08-12 Office Zahraa [facility] [id number] Univers 15:03:21 16:15:18 Visit Marquez LOMELI 350.1.13.10 i ty of [place] [id number] [place] PROFESS[place] [phone] Az dic[address] 2021-08-12 2021-08-12 Outpatient R THOMAS VITAL [facility] [id number] Univers 15:00:00 16:15:18 ity [facility] 2021-08-12 2021-08-12 Orders Doctor DELILAH 1.2.840.114 [id number] Univers 00:00:00 00:00:00 Only Unassigned, ANAIS 350.1.13.10 ity of [place] [facility] 4.2.7.2.686 Anton as [phone] [address] 2021-07-02 2021-07-02 Telephone Thomas Vital [facility] 1.2.840.114 [id number] Univers 00:00:00 00:00:00 Marquez LOMELI 350.1.13.10 i ty of [place] 4.2.7.2.686 [place] [phone] Az dicne NAL [address] [place] [address] 2021-06-19 2021-06-19 Emergency [facility] [id number] Univers 12:18:00 15:25:00 Dusty Lomeli 350.1.13.10 i ty of [place] 4.2.7.2.686 [place] [phone] [facility] 084 [place] 2021-02-09 2021-02-09 Outpatient R THOMAS VITAL [facility] [id number] Univers 13:30:00 13:30:00 ity of [facility] 2021-01-01 2021-01-01 Office Zahraa [facility] [id number] Univers 16:01:31 17:29:57 Visit Marquez Lomeli 350.1.13.10 i ty of [place] 4.2.7.2.[place] Profess[place] [phone] Az dical nal [address] [place] [address] 2021-01-01 2021-01-01 Outpatient R THOMAS VITAL [facility] [id number] Univers 16:00:00 16:00:00 ity of [facility] 2021-01-01 2021-01-01 Orders Doctor DELILAH 1.2.840.114 [id number] Univers 00:00:00 00:00:00 Only Unassigned, ANAIS 350.1.13.10 ity of [place] [facility] 4.2.7.2.686 Anton as [phone] [facility] 009 [place] 2020-12-25 2020-12-25 [facility] [id number] Univers 15:38:03 16:33:21 Jackie Lomeli 350.1.13.10 ity of [place] [id number] [phone] Az dical nal [address] [facility] 2020-12-25 2020-12-25 Outpatient R ARGENIS [facility] [id number] Univers 15:30:00 15:30:00 JACKIE itmicheline [facility] 2020-12-11 2020-12-11 Nurse Nurse, [facility] 1.2.840.114 [id number] Univers 15:33:47 16:10:39 Visit Thomas Vital 350.1.13.10 ity of [place] [id number] [phone] Az dical nal [address] 2020-12-11 2020-12-11 Outpatient R [facility] [id number] Univers 15:30:00 15:30:00 ity of [facility] 2020-12-08 2020-12-08 Telephone Thomas Vital [facility] 1.2.840.114 [id number] Univers 00:00:00 00:00:00 Cam [place] 350.1.13.10 i ty of [place] [id number] [phone] Az dical nal [address] 2020-12-01 2020-12-03 Hospital Thomas Vital [facility] 1.2.840.114 [id number] Univers 07:20:00 11:55:00 Encounter Marquez [place] 350.1.13.10 ity of [place] 4.2.7.2.[place] [phone] [facility] 083 Branch 2020-12-01 2020-12-01 Anesthesia [facility] 1.2.840.114 [id number] Univers 10:58:00 12:22:00 Event Mandeep [place] 350.1.13.10 i ty of [place] 4.2.7.2.[place] [phone] [facility] 013 Branch 2020-12-01 2020-12-01 Outpatient P THOMAS VITAL [facility] YOLY [id number] Univers 09:30:00 09:30:00 ity of [facility] 2020-12-01 2020-12-01 Orders Doctor DELILAH 1.2.840.114 [id number] Univers 00:00:00 00:00:00 Only Unassigned, ANAIS 350.1.13.10 ity of [place] [facility] 4.2.7.2.686 Anton as [phone] [facility] 009 Branch 2020-11-27 2020-11-27 Laboratory Only, Adc Test [facility] 1.2.840. 114 [id number] Univers 15:06:05 15:21:05 Only Thomas Vital Marquez [place] 350.1.13.10 ity of [place] 4.2.7.2.[place] [phone] [facility] 353 Branch 2020-11-27 2020-11-27 Collar Stay Fuser Tender Ana, Eva Lab Main [facility] 1.2.8 [id number] Univers 15:04:47 15:19:47 Visit Thomas Vital Marquez Lomeli 350.1.13.10 ity of [place] 4.2.7.2.[place] Profess[place] [phone] Az dical nal [address] [facility] 2020-11-27 2020-11-27 Routine Thomas Vital [facility] 1.2.154.194 [id number] Univers 13:36:20 14:30:59 Marquez Lomeli 350.1.13.10 ity of [place] 4.2.7.2.[place] [phone] Az dical nal [address] [facility] 2020-11-27 2020-11-27 Outpatient R THOMAS VITAL [facility] [id number] Univers 14:00:00 14:00:00 ity of [facility] 2020-11-27 2020-11-27 Orders Doctor DELILAH 1.2.840.114 [id number] Univers 00:00:00 00:00:00 Only Unassigned, ANAIS 350.1.13.10 ity of [place] [facility] 4.2.7.2.686 Anton as [phone] [facility] 009 [place] 2020-11-24 2020-11-24 Hospital Thomas Vital [facility] 1.2.840.114 [id number] Univers 14:06:00 18:05:00 Encounter Marquez Lomeli 350.1.13.10 ity of [place] 4.2.7.2.[place] [phone] [facility] 083 [place] 2020-11-24 2020-11-24 Telephone Thomas Vital [facility] 1.2.840.114 [id number] Univers 00:00:00 00:00:00 Cam Rosalie 350.1.13.10 i ty of [place] 4.2.7.2.[place] [phone] Az dical nal [address] [facility] 2020-11-20 2020-11-20 Routine Thomas Vital [facility] 1.2.989.079 [id number] Univers 15:45:16 16:10:03 Cam [place] 350.1.13.10 ity of [place] 4.2.7.2.[place] [phone] Az dical nal [address] [facility] 2020-11-20 2020-11-20 Outpatient R THOMAS VITAL [facility] [id number] Univers 15:45:00 15:45:00 ity of [facility] 2020-11-13 2020-11-13 Outpatient R THOMAS VITAL [facility] [id number] Univers 16:15:00 16:15:00 ity of [facility] 2020-11-13 2020-11-13 Collar Stay Fuser Tender 2, Adc Lab [facility] 1.2.840.114 [id number] Univers 14:20:31 14:35:31 Visit Thomas Vital Marquez Lomeli 350.1.13.10 ity of [place] 4.2.7.2.[place] [phone] Az dical gary [address] [facility] 2020-11-13 2020-11-13 Routine Zahraa [facility] [id number] Univers 13:23:18 14:17:01 [place] 350.1.13.10 ity of [place] 4.2.7.2.[place] [phone] Az dical nal [address] [facility] 2020-11-13 2020-11-13 Outpatient R VITALTHOMAS [facility] [id number] Univers 13:30:00 13:30:00 ity of [facility] 2020-10-29 2020-10-29 Routine Argenis [facility] 1.2.451.651 [id number] Univers 14:16:13 15:14:33 Jackie Lomeli 350.1.13.10 ity of [place] 4.2.7.2.[place] [phone] Az dical nal [address] [facility] 2020-10-29 2020-10-29 Outpatient R ARGENIS [facility] [id number] Univers 14:15:00 14:15:00 JACKIE ity of [facility] 2020-10-15 2020-10-15 Routine Zahraa Thomas [facility] 1.2.157.789 [id number] Univers 15:56:05 16:40:25 Marquez Lomeli 350.1.13.10 ity of [place] 4.2.7.2.[place] [phone] [address] 2020-10-15 2020-10-15 Outpatient R THOMAS VITAL [facility] [id number] Univers 16:00:00 16:00:00 ity of [facility] 2020-10-01 2020-10-01 [facility] 1.2.724.874 [id number] Univers 15:40:33 16:40:08 Jackie Lomeli 350.1.13.10 ity of [place] 4.2.7.2.686 [place] [phone] [address] 2020-10-01 2020-10-01 Outpatient R ARGENIS [facility] [id number] Univers 15:30:00 15:30:00 [facility] 2020-09-18 2020-09-18 Telephone Argenis [facility] 1.2.840.114 [id number] Univers 00:00:00 00:00:00 Jackie Lomeli 350.1.13.10 i ty of [place] 4[place].2.[place] [phone] [address] 2020-09-16 2020-09-16 Nurse Nurse, [facility] 1.2.840.114 [id number] Univers 10:25:55 11:12:44 Visit Zahraa Thmoasbenigno Lomeli 350.1.13.10 ity of [place] 4.2.7.2.[place] [phone] [address] 2020-09-16 2020-09-16 Collar Stay Fuser Tender 2, [facility] Lab [facility] 1.2.840.114 [id number] Univers 09:22:04 09:37:04 Visit Thomas Vital 350.1.13.10 ity of [place] 4.2.7.2.[place] [phone] Az dical nal [address] [facility] 2020-09-16 2020-09-16 Outpatient R [facility] [id number] Univers 09:15:00 09:15:00 ity of [facility] 2020-09-11 2020-09-11 Outpatient R [facility] [id number] Univers 13:45:00 13:45:00 ity of [facility] 2020-09-11 2020-09-11 Collar Stay Fuser Tender 2, Eva Lab [facility] [place] 1.2.840.114 [id number] Univers 13:04:08 13:19:08 Visit Thomas Vital Marquez Lomeli 350.1.13.10 [place] [phone] [place] dical nal [address] [place] [address] 2020-09-10 2020-09-10 Routine Thomas Vital [facility] 1.2.076.515 [id number] Univers 16:00:53 17:27:46 Marquez Lomeli 350.1.13.10 [place] [phone] [place] dical nal [address] [facility] 2020-09-10 2020-09-10 Outpatient R THOMAS VITAL [facility] [id number] Univers 16:15:00 16:15:00 ity of [facility] 2020-08-22 2020-08-22 Collar Stay Fuser Tender Ultrasound, Eva [facility] 1.2 .840.114 [id number] Univers 12:59:13 13:29:13 Visit Thomas Vital Rosalie 350.1.13.10 [place] [phone] [address] 2020-08-22 2020-08-22 Outpatient P [facility] [id number] Univers 13:00:00 13:00:00 ity of [facility] 2020-08-13 2020-08-13 Routine Argenis HIYASMEEN 1.2.961.295 [id number] Univers 15:38:35 15:53:35 Jackie [place] 350.1.13.10 [place] [phone] Az dical nal [address] [place] [address] 2020-08-13 2020-08-13 Outpatient R ARGENIS [facility] [id number] Univers 15:30:00 15:30:00 JACKIE ity of [facility] 2020-07-29 2020-07-29 Telephone Thomas Vital [facility] 1.2.840.114 [id number] Univers 00:00:00 00:00:00 Cam [place] 350.1.13.10 i [place] [phone] Az dical nal [address] [place] [address] 2020-07-28 2020-07-28 Case Thomas Vital [facility] 1.2.948.230 [id number] Univers 00:00:00 00:00:00 Management Cam [place] 350.1.13.10 [place] [phone] Az dical nal [address] [place] [address] 2020-07-25 2020-07-25 Collar Stay Fuser Tender Ultrasound, [facility] 1.2 .840.114 [id number] Univers 13:41:34 15:25:03 Visit Osvaldo Cron[place] 350.1.13.10 [place] [phone] Az dical nal [address] [place] [address] 2020-07-25 2020-07-25 Outpatient P [facility] [id number] Univers 14:00:00 14:00:00 ity of [facility] 2020-07-16 2020-07-16 Routine VitalBijalen [facility] 1.2.387.811 [id number] Univers 13:28:19 14:17:07 Cam [place] 350.1.13.10 it[place] [phone] Az dical nal [address] [place] [address] 2020-07-16 2020-07-16 Outpatient R ZAHRAA THOMAS [facility] [id number] Univers 13:00:00 13:00:00 ity of [facility] 2020-07-16 2020-07-16 Orders Doctor DELILAH 1.2.840.114 [id number] Univers 00:00:00 00:00:00 Only Unassigned, ANAIS 350.1.13.10 ity of [facility] 4.2.7.2.686 [place] as [phone] [address] 2020-07-11 2020-07-11 Telephone Thomas Vital [facility] 1.2.840.114 [id number] Univers 00:00:00 00:00:00 Cam [place] 350.1.13.10 i [place] [phone] Az dicne nal [address] [place] [address] 2020-07-08 2020-07-08 Telephone Thomas Vital [facility] 1.2.840.114 [id number] Univers 00:00:00 00:00:00 Cam [place] 350.1.13.10 i [place] [phone] Az dical nal [address] [place] [address] 2020-07-07 2020-07-07 Orders Doctor DELILAH 1.2.840.114 [id number] Univers 00:00:00 00:00:00 Only Unassigned, ANAIS 350.1.13.10 ity of [facility] 4.2.7.2.686 [place] as [phone] [address] 2020-07-02 2020-07-02 Telephone Vital Thomas [facility] 1.2.840.114 [id number] Univers 00:00:00 00:00:00 Cam [place] 350.1.13.10 i [place] [phone] Az dical nal [address] [place] [address] 2020-07-02 2020-07-02 Telephone Vital Thomas [facility] 1.2.840.114 [id number] Univers 00:00:00 00:00:00 Cam [place] 350.1.13.10 i [place] [phone] Az dical nal [address] [place] [address] 2020-06-30 2020-06-30 Telephone Thomas Vital [facility] 1.2.840.114 [id number] Univers 00:00:00 00:00:00 Marquez Lomeli 350.1.13.10 [place] [phone] Az dical nal 134 [facility] 2020-06-25 2020-06-25 Letter DELILAH Rojas 1..840.114 [id number] Univers 00:00:00 00:00:00 (Out) Karie MANZO 350.1.13.10 it y of [facility] 4.2.7.2.686 [place] as [phone] [facility] [address] 2020-06-25 2020-06-25 Telephone Thomas Vital [facility] 1.2.840.114 [id number] Univers 00:00:00 00:00:00 Marquez [place] 350.1.13.10 i [place] [phone] Az dical nal 134 [facility] 2020-06-24 2020-06-24 Emergency Alexis, K [facility] 1..840.114 [id number] Univers 10:46:00 13:09:00 Deloris Lomeli 350.1.13.10 [place] [phone] [facility] [address] 2020-06-19 2020-06-19 Collar Stay Fuser Tender 2, Adc Lab [facility] 1.2.840.114 [id number] Univers 11:48:54 12:03:54 Visit Thomas Vital Marquez Lomeli 350.1.13.10 [place] [phone] [facility] 2020-06-19 2020-06-19 Outpatient R [facility] [id number] Univers 11:45:00 11:45:00 ity of [facility] 2020-06-19 2020-06-19 Telephone Thomas Vital [facility] 1.2.840.114 [id number] Univers 00:00:00 00:00:00 Marquez Lomeli 350.1.13.10 i [place] [phone] Az dical nal [address] [place] [address] 2020-06-19 2020-06-19 Orders Doctor DELILAH 1.2.840.114 [id number] Univers 00:00:00 00:00:00 Only Unassigned, ANAIS 350.1.13.10 ity of [facility] 4.2.7.2.686 [place] [phone] [address] 2020-06-18 2020-06-18 Initial Zahraa [facility] 1.2.900.010 [id number] Univers 14:07:09 16:13:03 Chloe Lomeli 350.1.13.10 ity [place] [phone] Az dic[address] 2020-06-18 2020-06-18 Outpatient R ZAHRAA [facility] [id number] Univers 14:15:00 14:15:00 ity of [facility] 2020-06-18 2020-06-18 Orders Doctor DELILAH 1.2.840.114 [id number] Univers 00:00:00 00:00:00 Only Unassigned, ANAIS 350.1.13.10 ity of [facility] 4.2.7.2.686 [place] as [phone] [address] 2020-06-17 2020-06-17 Outpatient R ZAHRAA TOHMAS [facility] [id number] Univers 14:00:00 14:00:00 ity of [facility] 2020-06-11 2020-06-11 Outpatient R ZAHRAA THOMAS [facility] [id number] Univers 14:00:00 14:00:00 ity of [facility] 2020-05-28 2020-05-28 Emergency Robyn Espinoza [facility] 1.2.840.114 [id number] Univers 09:58:00 11:05:00 Deloris Lomeli 350.1.13.10 [place] [phone] [facility] [address] 2020-05-28 2020-05-28 Emergency Robyn Espinoza [facility] 1.2.840.114 [id number] 09:58:00 11:05:00 Deloris [place] 350.1.13.10 [place] 4.2.7.2.686 [place] [phone] 084 2020-02-28 2020-02-28 Urgent Pob1, Acute Care Clinic [facility] 1. 2.840.114 [id number] Univers 15:50:11 16:10:11 Adriane Carrasco [facility] 350.1.13.10 darby [facility] 4.2.7.2.686 [place] Professio [phone] [address] [employer] 2020-02-28 2020-02-28 Urgent Pob1, Acute [facility] 1.2.840.114 [id number] 15:50:11 16:10:11 [facility] 350.1.13.10 [place] 4.2.7.2.686 Professio [phone] [place] [address] [address] 2020-02-28 2020-02-28 Outpatient Demond ABREU [facility] [id number] 749 [facility] 16:00:00 16:00:00 ADRIANE pastor [facility] Results This patient has no known results.
[2022-08-22] MEDS ORDERED: NA CHLORIDE 0.9% 1,000 ML ONE ×2 (18:13→20:49)
[2022-08-22 18:48] LABS: Absolute Lymphocytes (CBC) 1.7 K/uL (0.7-4.9); Hematocrit 47.4 % (36.0-45.0); Lymphocytes % 10.7 % (15.3-44.8); MCV 92.6 fL (80-100); MPV 7.4 fL (7.6-11.3); RBC Red Blood Cell Count 5.12 M/uL (3.86-4.86)
[2022-08-22 19:10] LABS: Specific Gravity 1.028 (1.005-1.030); Urine Bacteria 20-50 /HPF (<20); Urine Bilirubin NEGATIVE (Negative); Urine Blood 3+ (OVER) (Negative); Urine Clarity Extremely Turbid (Clear); Urine Color Dark-Brown (Yellow); Urine Glucose NEGATIVE (Negative); Urine Mucus 4+ /HPF (None Seen); Urine Protein 2+ (Negative); Urine RBC >50 /HPF (None Seen); Urine Urobilinogen Normal (Normal); Urine pH 5.5 (5.0-7.0)
[2022-08-22] MEDS ORDERED: KETOROLAC 30 MG/ML INJ ONE (23:05)
[2022-08-23] MEDS ORDERED: NA CHLORIDE 0.9% 50 ML IV ONE (00:02)
[2022-08-23] MEDS ORDERED: CEFTRIAXONE 1000 MG/VIAL ONE (00:02)
--- NOTE | 2022-08-23 00:32 | ER ---
Nurse's Notes [facility] Name: Maricruz Bacon Age: 27 yrs Sex: Female : 1995 Arrival Date: 08/22/2022 Time: 17:57 Bed 17 Private MD: Diagnosis: Acute cystitis with hematuria Presentation: 08/22 18:04 Chief complaint: Low back pain, difficulty urination,and pain with urination since this hb morning, blood in urine and abdominal pain this afternoon. Coronavirus screen: At this time, the client does not indicate any symptoms associated with coronavirus-19. Ebola Screen: No symptoms or risks identified at this time. Initial Sepsis Screen: Does the patient meet any 2 criteria? No. Patient's initial sepsis screen is negative. Does the patient have a suspected source of infection? No. Patient's initial sepsis screen is negative. Risk Assessment: Do you want to hurt yourself or someone else? Patient reports no desire to harm self or others. Onset of symptoms was August 22, 2022. 18:04 Method Of Arrival: Ambulatory hb 18:04 Acuity: DELLA 3 hb Historical: - Allergies: 18:07 No Known Allergies; hb - Home Meds: 18:07 None [Active]; hb - PMHx: 18:07 None; hb - PSHx: 18:07 section; Tonsillectomy; hb - Immunization history:: Adult Immunizations up to date, Client reports having NOT received the Covid vaccine. - Social history:: Smoking status: Patient denies any tobacco usage or history of. Screenin:20 [facility] ED Fall Risk Assessment (Adult) History of falling in the last 3 months, kb3 including since admission No falls in past 3 months (0 pts) Confusion or Disorientation No (0 pts) Intoxicated or Sedated No (0 pts) Impaired Gait No (0 pts) Mobility Assist Device Used No (0 pt) Altered Elimination No (0 pt) Score/Fall Risk Level 0 - 2 = Low Risk. Abuse screen: Denies threats or abuse. Denies injuries from another. Nutritional screening: No deficits noted. Tuberculosis screening: No symptoms or risk factors identified. Assessment: 18:20 General: Appears uncomfortable, Behavior is cooperative, anxious, crying, Received care kb3 of pt from triage. Pt reports bilateral flank pain, blood in urine, pain with urination, hesitancy and frequency since this morning. Pt reports suprapubic pain since this afternoon with increased blood in urine.. 18:20 Pain: Complains of pain in left low back, right low back and suprapubic area Pain does kb3 not radiate. Pain currently is 7 out of 10 on a pain scale. Quality of pain is described as pressure, sharp, Pain began 1 day ago. Is continuous. Respiratory: Airway is patent Respiratory effort is even, unlabored, Breath sounds are clear bilaterally. : Reports burning with urination, cramping, inability to void, pain vaginal bleeding that is bright red, blood in urine. 23:00 Reassessment: Patient appears in no apparent distress at this time. No changes from kb3 previously documented assessment. Patient and/or family updated on plan of care and expected duration. Pain level reassessed. General: Updated pt regarding continued delay of lab results due to machine malfunction in lab. Pt states understanding of all discussed. 08/23 00:48 Reassessment: Patient appears in no apparent distress at this time. Patient and/or jb4 family updated on plan of care and expected duration. Pain level reassessed. Patient is alert, oriented x 3, equal unlabored respirations, skin warm/dry/pink. Vital Signs: 08/22 18:04 BP 109 / 92; Pulse 118; Resp 16; Temp 99.1(TE); Pulse Ox 100% on R/A; Weight 61.23 kg; hb Height 5 ft. 4 in. (162.56 cm); Pain 5/10; 21:25 BP 117 / 75; Pulse 93; Resp 16; Temp 98.1; Pulse Ox 100% ; Weight 61.23 kg; Height 5 zm ft. 4 in. (162.56 cm); 21:25 Body Mass Index 23.17 (61.23 kg, 162.56 cm) ED Course: 17:57 Patient arrived in ED. as 17:59 [facility] Lim [facility]C [facility] kb 17:59 Halima Akers MD is Attending Physician. kb 18:07 Triage completed. hb 18:07 Arm band placed on. hb 18:08 Alina Granger, RN is Primary Nurse. kb3 18:20 Patient has correct armband on for positive identification. Bed in low position. Call kb3 light in reach. Side rails up X 1. Warm blanket given. 18:20 No provider procedures requiring assistance completed. kb3 18:40 Inserted saline lock: 22 gauge in left antecubital area, using aseptic technique. Blood jd3 collected. 22:[address] kb3 22:[address] from [address]. kb3 22:58 CT Abd/Pelvis - IV Contrast Only In Process Unspecified. EDMS Administered Medications: 18:44 Drug: NS 0.9% 1000 ml Route: IV; Rate: 1 bolus; Site: left antecubital; kb3 20:30 Follow up: Response: No adverse reaction; IV Status: Completed infusion; IV Intake: kb3 1000ml 20:50 Drug: NS 0.9% 1000 ml Route: IV; Rate: 1000 ml; Site: left antecubital; kb3 23:08 Drug: Ketorolac 15 mg Route: IVP; Site: left antecubital; kb3 08/23 00:10 Follow up: Response: No adverse reaction; Pain is decreased kb3 00:10 Drug: Rocephin (cefTRIAXone) 1 grams Route: IV; Rate: calculated rate; Site: left kb3 antecubital; Medication: 12 18:20 VIS not applicable for this client. kb3 Intake: 20:30 IV: 1000ml; Total: 1000ml. kb3 Outcome: 08/23 00:31 Discharge ordered by . kb 00:49 Discharged to home ambulatory, with family. jb4 00:49 Condition: stable 00:49 Discharge instructions given to patient, Instructed on discharge instructions, follow up and referral plans. medication usage, Demonstrated understanding of instructions, follow-up care, medications, Prescriptions given X 1. 00:49 Patient left the ED. jb4 Signatures: Dispatcher [employer] EDMS Jolie Lim, CONCHITA AVITIA-Vanessa Moyer Heather RN Nicho Booker RN RN jb4 Kwame Samson RN RN jd3 Martinez, Zaina zm Bradberry, Kelly, RN RN kb3
--- NOTE | 2022-08-23 00:32 | EDPHYS ---
Physician Documentation [facility] Name: Maricruz Bacon Age: 27 yrs Sex: Female : 1995 Arrival Date: 08/22/2022 Time: 17:57 Bed 17 Private MD: ED Physician Halima Akers HPI: 08/22 18:26 This 27 yrs old Female presents to ER via Ambulatory with complaints of Low Back Pain, kb Urinary Retention, Shortness Of Breath, Weakness. 18:26 The patient presents with flank pain, bilaterally, urinary symptoms, frequency, kb hematuria, urgency. Onset: The symptoms/episode began/occurred this morning. Modifying factors: The symptoms are alleviated by nothing, the symptoms are aggravated by urinating. Associated signs and symptoms: Pertinent positives: hematuria, urinary frequency. Severity of symptoms: At their worst the symptoms were moderate, in the emergency department the symptoms are unchanged. The patient has not experienced similar symptoms in the past. The patient has not recently seen a physician. Pt reports she woke up with bilateral flank pain, urinary frequency/urgency, small amounts and hematuria . Historical: - Allergies: 18:07 No Known Allergies; hb - Home Meds: 18:07 None [Active]; hb - PMHx: 18:07 None; hb - PSHx: 18:07 section; Tonsillectomy; hb - Immunization history:: Adult Immunizations up to date, Client reports having NOT received the Covid vaccine. - Social history:: Smoking status: Patient denies any tobacco usage or history of. ROS: 18:24 Constitutional: Negative for fever, chills, and weight loss. kb 18:24 : Positive for urinary symptoms, flank pain, urinary frequency, small amounts, hematuria, difficulty urinating. 18:24 All other systems are negative. Exam: 18:25 Constitutional: This is a well developed, well nourished patient who is awake, alert, kb and in no acute distress. Head/Face: Normocephalic, atraumatic. ENT: Moist Mucous membranes Cardiovascular: Regular rate and rhythm with a normal S1 and S2. No gallops, murmurs, or rubs. No pulse deficits. Respiratory: Respirations even and unlabored. No increased work of breathing. Talking in full sentences Abdomen/GI: Soft, non-tender. No distention Skin: Warm, dry with normal turgor. Normal color. MS/ Extremity: Pulses equal, no cyanosis. Neurovascular intact. Full, normal range of motion. Neuro: Awake and alert, GCS 15, oriented to person, place, time, and situation. Moves all extremities. Normal gait. Psych: Awake, alert, with orientation to person, place and time. Behavior, mood, and affect are within normal limits. 18:25 Back: CVA tenderness, that is mild, is noted bilaterally. Vital Signs: 18:04 BP 109 / 92; Pulse 118; Resp 16; Temp 99.1(TE); Pulse Ox 100% on R/A; Weight 61.23 kg; hb Height 5 ft. 4 in. (162.56 cm); Pain 5/10; 21:25 BP 117 / 75; Pulse 93; Resp 16; Temp 98.1; Pulse Ox 100% ; Weight 61.23 kg; Height 5 zm ft. 4 in. (162.56 cm); 21:25 Body Mass Index 23.17 (61.23 kg, 162.56 cm) zm MDM: 18:07 Patient medically screened. kb 18:24 Data reviewed: vital signs, nurses notes. Data interpreted: Pulse oximetry: on room air kb is 100 %. Interpretation: normal. 08/23 00:31 Counseling: I had a detailed discussion with the patient and/or guardian regarding: the kb historical points, exam findings, and any diagnostic results supporting the discharge/admit diagnosis, lab results, radiology results, the need for outpatient follow up, a family practitioner, to return to the emergency department if symptoms worsen or persist or if there are any questions or concerns that arise at home. 08/22 18:07 Order name: CBC with Diff; Complete Time: 19:17 kb 08/22 18:07 Order name: CMP kb 08/22 18:07 Order name: Lipase kb 08/22 18:37 Order name: Test, Serum; Complete Time: 22:41 eb 08/22 18:07 Order name: CT Abd/Pelvis - IV Contrast Only 08/22 18:50 Order name: Urinalysis W/Microscopic; Complete Time: 19:18 EDMS 08/22 19:20 Order name: Urine Culture EDTN 08/22 23:08 Order name: CREATININE WHOLE BLOOD; Complete Time: 23:13 EDMS 08/22 18:07 Order name: IV Saline Lock; Complete Time: 18:35 kb 08/22 18:07 Order name: Labs collected and sent; Complete Time: 18:35 kb 08/22 18:07 Order name: Urine Dipstick-Ancillary (obtain specimen); Complete Time: 18:40 kb 08/22 18:07 Order name: Urine Test (obtain specimen); Complete Time: 18:40 kb Administered Medications: 08/22 18:44 Drug: NS 0.9% 1000 ml Route: IV; Rate: 1 bolus; Site: left antecubital; kb3 20:30 Follow up: Response: No adverse reaction; IV Status: Completed infusion; IV Intake: kb3 1000ml 20:50 Drug: NS 0.9% 1000 ml Route: IV; Rate: 1000 ml; Site: left antecubital; kb3 23:08 Drug: Ketorolac 15 mg Route: IVP; Site: left antecubital; kb3 08/23 00:10 Follow up: Response: No adverse reaction; Pain is decreased kb3 00:10 Drug: Rocephin (cefTRIAXone) 1 grams Route: IV; Rate: calculated rate; Site: left kb3 antecubital; Disposition Summary: 08/23/22 00:31 Discharge Ordered Location: Home kb Condition: Stable kb Diagnosis - Acute cystitis with hematuria kb Followup: kb - With: Emergency Department - When: As needed - Reason: Worsening of condition Followup: kb - With: Private Physician - When: 2 - 3 days - Reason: Recheck today's complaints, Continuance of care, Re-evaluation by your physician Discharge Instructions: - Discharge Summary Sheet kb - Urinary Tract Infection, Adult, [id number] kb Forms: - Medication Reconciliation Form kb - Thank You Letter kb - Antibiotic Education kb - Prescription Opioid Use kb Prescriptions: - Augmentin 875-125 mg Oral Tablet - take 1 tablet by ORAL route every 12 hours for 10 days; 20 tablet; Refills: 0, kb Product Selection Permitted Signatures: Dispatcher [employer] Jolie Her, ADORE-C ICE GUARD INSPECTOR-Cori Appiah RN RN Alina Hazel RN RN kb3 Corrections: (The following items were deleted from the chart) 08/22 18:50 18:08 UA MICROSCOPIC+U.LAB.BRZ ordered. EDMS EDMS 18:50 18:37 URINALYSIS+U.LAB.BRZ ordered. EDMS EDMS
[2022-08-23 01:12] VITALS: O2SAT 100
[2022-08-23 01:18] VITALS: BP 117/75; TEMP 98.1
[2022-08-23 04:32] LABS: Potassium 3.7 mmol/L (3.5-5.1)
[2022-08-23 04:33] LABS: Albumin 4.9 g/dL (3.4-5.0); Bilirubin Total 0.8 mg/dL (0.2-1.0); Protein, Total 7.8 g/dL (6.4-8.2)
--- NOTE | 2022-08-23 12:42 | RAD REPORT ---
EXAM DESCRIPTION: CT - Abdomen Pelvis W Contrast - 08/23/2022 6:18 am CLINICAL HISTORY: The patient is 27 years old and is Female; bilateral flank pain TECHNIQUE: Axial computed tomography images of the abdomen and pelvis with intravenous contrast. S agittal and coronal reformatted images were created and reviewed. This CT exam was performed using one or more of the following dose reduction techniques: automated exposure control, adjustment of t he mA and/or kV according to patient size, and/or use of iterative reconstruction technique. COMPARISON: No relevant prior studies available. FINDINGS: LUNG BASES: Unremarkable. No mass. No consolidation. ABDOMEN: LIVER: Focal fatty infiltration at the falciform ligament is present. The liver is otherwise h omogeneous. GALLBLADDER AND BILE DUCTS: The gallbladder is contracted. No calcified gallstones are seen. PANCREAS: No ductal dilation. No mass. SPLEEN: Unremarkable. ADRENALS: Unremarkable. No mass. KIDNEYS AND URETERS: Unremarkable. The kidneys enhance symmetrically. No obstructing renal or ur eteral calculus is seen. No hydronephrosis or hydroureter. No perinephric fluid or stranding. STOMACH AND BOWEL: The stomach is distended with food contents. The small bowel is normal in dwaine iber. A moderate amount stool is present throughout colon. There is no mucosal thickening or evidence of obstruction. PELVIS: APPENDIX: The appendix is normal in caliber without surrounding inflammation. BLADDER: The bladder is well distended. Mild bladder wall thickening is noted. REPRODUCTIVE: An IUD is in place. The uterus and ovaries are unremarkable. ABDOMEN and PELVIS: INTRAPERITONEAL SPACE: Unremarkable. No free air. No significant fluid collection. BONES/JOINTS: No acute fracture. SOFT TISSUES: The soft tissues are normal. VASCULATURE: Unremarkable. No abdominal aortic aneurysm. LYMPH NODES: Unremarkable. No enlarged lymph nodes. IMPRESSION: 1. Mild bladder wall thickening which may be secondary to cystitis. 2. Otherwise, unremarkable contrasted CT of the abdomen and pelvis. Electronically signed by: Riri Jara MD 08/22/2022 11:17 PM PERINATAL DIRECTOR Due to temporary technical issues with the PACS/Fluency reporting system, reports are being signed by the in house radiologists without review as a courtesy to insure prompt reporting. The interpreting radiologist is fully responsible for the content of the report.
== END 2022-08-23 00:49 | disposition home or self-care (01) ==
LOC: ER 17:55
DX: N30.01 Acute cystitis with hematuria (principal)
CPT/HCPCS: 87088; 85025; 81001; 87086; 36415; 84703; 82565; 83690; 80053; 74177; Q9967; J7030 ×2; 87077; 87186; 96361; 96374; 96375; 99284

== ENCOUNTER 2023-01-16 21:14 | Emergency (ER) | payer OTHER ==
--- OUTSIDE RECORDS SUMMARY | 2023-01-16 21:17 | XMS REPORT | Continuity of Care Document ---
:1995 Author Organization [facility] t Address [address] [facility] [address] [place] [address] Care Team Providers Name Role Phone PHILIP HOWARD Primary Care Physician Unavailable THOMAS VITAL Attending Clinician Unavailable SHEYLA FREEDMAN Attending Clinician Unavailable Thomas Vital MD Attending Clinician JACKIE MORE Attending Clinician Unavailable MARCELINA SHIPLEY Attending Clinician Unavailable MARCELINA SHIPLEY Attending Clinician Unavailable Doctor Unassigned, [place] Attending Clinician Unavailable uDsty Pinon MD Attending Clinician Jackie More PA-C Attending Clinician Nurse, [facility] Attending Clinician Unavailable Maria L Faust MD, Leonard Attending Clinician Only, Adc Test Attending Clinician Unavailable Pob, Adc Lab Main Attending Clinician Unavailable 2, Adc Lab Attending Clinician Unavailable Ultrasound, Adc Mfm Attending Clinician Unavailable Osvaldo Cronin MD Attending Clinician Bob WARD, Karie Nelson Attending Clinician Unavailable Robyn Catalan Attending Clinician Pob1, Acute Care Clinic Attending Clinician Unavailable Adriane Wang Attending Clinician ADRIANE ABREU Attending Clinician Unavailable THOMAS VITAL Admitting Clinician Unavailable Thomas Vital MD Admitting Clinician Payers Payer Name Policy Type Policy Number Effective Date Expiration Date S kali PRINCE [id number] 2020 HEALTH 00:00:00 [place] [id number] 2009 00:00:00 [place] [id number] 2020 00:00:00 Problems Condition Condition Condition Status Onset Resolution Last Treating Co mments Source Name Details Category Date Date Treatment Clinician Date Vaginal Vaginal Disease Active Univers discharge discharge 3-22 ity of 00:00: [address] Branch BMI BMI Disease Active Univers 25.0-25.9, 25.0-25.9, 3-22 it y of adult adult 00:00: [address] Branch Presence Presence Disease Active Unive rs of of 3-22 [place] of [place] contracept contracept Br anch marilyn device marilyn device Stress Stress Disease Active 2020-09 Univers incontinen incontinen 2-08 it y of ce ce 00:00: [address] Decreased Decreased Disease Active 2020-09 Uni vers libido libido 2-08 ity of 00:00: [address] Breakthrou Breakthrou Disease Active 2020-09 U nivers gh gh 2-08 ity of bleeding bleeding 00:00: [place] with IUD with IUD 00 Medica l [place] Obesity Obesity Disease Active Univers (BMI (BMI 3-11 ity of 30-39.9) 30-39.9) 00:00: [address] LGSIL on LGSIL on Disease Active Unive rs Pap smear Pap smear 2-10 ity of of cerv[place] 00[place] [address] [place] Rh Rh Disease Active Univers negative, negative, 1-06 [place] of ante[place] Previous Previous Disease Active 2019-09 Unive rs 0-14 ity of section section 00:00: [address] Allergies, Adverse Reactions, Alerts Allergy Allergy Status Severity Reaction(s) Onset Inactive Treating Comm ents Source Name Type Date Date Clinician NO KNOWN Drug Active Univers ALLERGIE Class ity of S [facility] Social History Social Habit Start Date Stop Date Quantity Comments Source Alcohol intake 2021-11-24 2021-11-24 Current University of 00:00:00 00:00:00 non-drinker of [facility] alcohol ([facility]) [place] Tobacco use and 2017-09-26 2017-09-26 Smokeless tobacco Un iversity of exposure 00:00:00 00:00:00 non-user [facility] Sex Assigned At [birth year] Universit y of 00:00:00 00:00:00 [facility] Smoking Status Start Date Stop Date Source Never smoked tobacco [facility] Medications Ordered Filled Start Stop Current Ordering Indication Dosage Frequency Signature Comments Components Source Medication Medication Date Date Medication? Clinician (SIG) Name Name No known No Univers medications 11-24 ity of 15:20: [address] No known No No known Unive rs medications 11-24 medication it y of 15:20: s [address] ibuprofen 2021- No [id number] 600mg Take 1 Univers 600 mg 12-02 tablet by ity of tablet 00:00: 00:00 mouth [place] 00 :00 every 6 Medical (six) Branch hours as needed (Pain). Take with food or milk. Immunizations Ordered Filled Immunization Date Status Comments Sourc e Immunization Name Name TDAP 2020-10-01 Completed University of 00:00:00 [facility] TDAP 2020-10-01 Completed University of 00:00:00 [facility] TDAP 2020-10-01 Completed University of 00:00:00 [facility] Rho (d) Immune 2020-09-16 Completed University of Globulin 00:00:00 [facility] Rho (d) Immune 2020-09-16 Completed University of Globulin 00:00:00 [facility] Rho (d) Immune 2020-09-16 Completed University of Globulin 00:00:00 [facility] Rho (d) Immune 2017-09-28 Completed University of Globulin 00:00:00 [facility] Rho (d) Immune 2017-09-28 Completed University of Globulin 00:00:00 [facility] Rho (d) Immune 2017-09-28 Completed University of Globulin 00:00:00 [facility] Vital Signs Vital Name Observation Time Observation Value Comments Source Systolic blood 2021-11-24 19:21:00 114 mm[Hg] Univer sity of pressure [facility] Diastolic blood 2021-11-24 19:21:00 75 mm[Hg] Unive rsity of pressure [facility] Heart rate 2021-11-24 19:21:00 80 /min Universi ty of [facility] Body temperature 2021-11-24 19:21:00 36.61 Lilian Univ ersity of [facility] Respiratory rate 2021-11-24 19:21:00 18 /min [facility] height 2021-11-24 19:21:00 162.6 cm Universi ty of [facility] Body weight 2021-11-24 19:21:[address] [facility] BMI 2021-11-24 19:21:00 25.51 kg/m2 [facility] Oxygen saturation in 2021-11-24 19:21:00 98 /min [facility] Arterial blood by [facility] Pulse oximetry Branch Procedures This patient has no known procedures. Encounters Start End Encounter Admission Attending Care Care Encounter Source Date/Time Date/Time Type Type Clinicians Facility Department ID 2021-07-07 Emergency [facility] [id number] Univers 07:07:[address] [facility] 2021-07-05 Outpatient P THOMAS VITAL [facility] YOLY [id number] Univers 07:37:18 ity of [facility] 2021-07-04 Emergency [facility] [id number] Univers 22:32:56 ity of [facility] 2021-07-03 Emergency [facility] [id number] Univers 23:56:07 ity of [facility] 2021-07-03 Emergency [facility] [id number] Univers 18:58:[address] [facility] 2022-05-06 2022-05-06 Outpatient R SHEYLA FREEDMAN [facility] [id number] Univers 13:30:00 13:30:00 ity of [facility] 2022-03-22 2022-03-22 Telephone Thomas Vital [facility] 1.2.840.114 [id number] Univers 00:00:00 00:00:00 Marquez LOMELI 350.1.13.10 i ty of [facility] 4.2.7.2.686 Kylie salazar PROFESSIO [phone] Mt dical [place] [address] Branch BUILDING 2022-01-27 2022-01-27 Outpatient R WARRENRONALDO [facility] [id number] Univers 15:00:00 15:00:00 JACKIE [facility] 2022-01-27 2022-01-27 Outpatient R ARGENIS [facility] [id number] Univers 15:00:00 15:00:[address] [facility] 2022-01-27 2022-01-27 Outpatient R ARGENIS [facility] [id number] Univers 15:00:00 15:00:[address] [facility] 2021-12-24 2021-12-24 Outpatient R SHEYLA FREEDMAN [facility] [id number] Univers 13:30:00 13:30:[address] [facility] 2021-12-14 2021-12-14 Outpatient R SHEYLA FREEDMAN [facility] [id number] Univers 13:30:00 13:30:[address] [facility] 2021-12-07 2021-12-07 Telephone Thomas Vital [facility] 1.2.840.114 [id number] Univers 00:00:00 00:00:00 Cam ARMANI 350.1.13.10 i ty of [place] [phone] Mt dical [address] 2021-11-24 2021-11-24 Outpatient R MARCELINA SHIPLEY [facility] B [id number] Univers 14:00:00 14:49:[address] [facility] 2021-11-24 2021-11-24 Office Cora [facility] 1.2.840.114 [id number] Univers 14:00:00 14:49:04 Visit Marcelina GERMAIN 350.1.13.10 it y of [place] [id number] [address] 2021-11-24 2021-11-24 Case Cora [facility] 1.2.840.114 [id number] Univers 00:00:00 00:00:00 Management Marcelina GERMAIN [id number] ity of [place]2.[place] [phone] [address] 2021-11-23 2021-11-23 Telephone Thomas Vital [facility] 1.2.840.114 [id number] Univers 00:00:00 00:00:00 Cam ARMANI 350.1.13.10 i ty of [place].2.[place] PROFESS[place] [phone] Mt dic[address] 2021-11-10 2021-11-10 Outpatient R THOMAS VITAL [facility] [id number] Univers 13:30:00 13:30:00 ity of [facility] 2021-10-16 2021-10-16 Orders Doctor DELILAH 1.2.840.114 [id number] Univers 00:00:00 00:00:00 Only Unassigned, ANAIS 350.1.13.10 ity of [place] [facility] 4.2.7.2.686 [place] as [phone] [address] 2021-08-13 2021-08-13 Outpatient R [facility] [id number] Univers 14:30:00 14:30:00 ity of [facility] 2021-08-13 2021-08-13 Outpatient R [facility] [id number] Univers 14:30:00 14:30:00 ity of [facility] 2021-08-12 2021-08-12 Office Z[facility] 1.2.180.594 [id number] Univers 15:03:21 16:15:18 Visit Marquez LOMELI 350.1.13.10 i ty of [place]ESS[place] [phone] Mt dic[address] 2021-08-12 2021-08-12 Outpatient R ZAHRAA [facility] [id number] Univers 15:00:00 16:15:18 ity of [facility] 2021-08-12 2021-08-12 Orders Doctor MAZARIEGOS 1.2.840.114 [id number] Univers 00:00:00 00:00:00 Only Unassigned, ANAIS 350.1.13.10 ity of [place] [facility]PITAL 4.2.7.2.686 Anton as [phone] [facility] 009 [place] 2021-07-02 2021-07-02 Telephone VitalThomas [facility] 1.2.840.114 [id number] Univers 00:00:00 00:00:00 Marquez LOMELI 350.1.13.10 i ty of [place].2.[place] [phone] [address] 2021-06-19 2021-06-19 Emergency [facility] 1.2.558.936 [id number] Univers 12:18:00 15:25:00 Dusty Lomeli 350.1.13.10 i ty [place]2.686 [place] [phone] [facility] 084 [place] 2021-02-09 2021-02-09 Outpatient R THOMAS VITAL [facility] [id number] Univers 13:30:00 13:30:00 ity of [facility] 2021-01-01 2021-01-01 Office [facility] 1.2.087.791 [id number] Univers 16:01:31 17:29:57 Visit Marquez Lomeli 350.1.13.10 i ty [place].2.[place] Profess[place] [phone] [address] 2021-01-01 2021-01-01 Outpatient R [facility] [id number] Univers 16:00:00 16:00:00 ity of [facility] 2021-01-01 2021-01-01 Orders Doctor MAZARIEGOS 1.2.840.114 [id number] Univers 00:00:00 00:00:00 Only Unassigned, ANAIS 350.1.13.10 ity of [place] [facility] 4.2.7.2.686 Anton as [phone] [address] 2020-12-25 2020-12-25 Routine Argenis [facility] 1.2.269.217 [id number] Univers 15:38:03 16:33:21 Jackie Lomeli 350.1.13.10 ity of [place].2.[place] [phone] Mt dical nal [address] [place] [address] 2020-12-25 2020-12-25 Outpatient R ARGENIS [facility] [id number] Univers 15:30:00 15:30:[address] [facility] 2020-12-11 2020-12-11 Nurse Nurse, [facility] 1.2.840.114 [id number] Univers 15:33:47 16:10:39 Visit Zahraa Thomas Marquez Lom[place] 350.1.13.10 ity [place] [phone] Mt dical nal [address] [place] [address] 2020-12-11 2020-12-11 Outpatient R [facility] [id number] Univers 15:30:00 15:30:[address] [facility] 2020-12-08 2020-12-08 Telephone Thomas Vital [facility] 1.2.840.114 [id number] Univers 00:00:00 00:00:00 Cam Armani 350.1.13.10 i ty [place] [phone] Mt dicnj nal [address] [place] [address] 2020-12-01 2020-12-03 Hospital Bijal Vitalen [facility] 1.2.840.114 [id number] Univers 07:20:00 11:55:00 Encounter Marquez Lomeli 350.1.13.10 ity of [place] [id number] [facility] 083 [place] 2020-12-01 2020-12-01 Anesthesia [facility] 1.2.840.114 [id number] Univers 10:58:00 12:22:00 Event Mandeep Lomeli 350.1.13.10 i ty of [place]2.[place] [id number] [facility] 013 [place] 2020-12-01 2020-12-01 Outpatient P THOMAS VITAL [facility] YOLY [id number] Univers 09:30:00 09:30:[address] [facility] 2020-12-01 2020-12-01 Orders Doctor DELILAH 1.2.840.114 [id number] Univers 00:00:00 00:00:00 Only Unassigned, ANAIS 350.1.13.10 ity of [place] [facility] 4.2.7.2.686 Anton as [phone] [address] 2020-11-27 2020-11-27 Laboratory Only, [facility] Test [place] 1.2.840. 114 [id number] Univers 15:06:05 15:21:05 Only Thomas Vital Marquez Lomeli 350.1.13.10 ity of [place] [phone] [facility] 353 [place] 2020-11-27 2020-11-27 [employer] Ana, [facility] Lab Main [place] 1.2.8 40.114 [id number] Univers 15:04:47 15:19:47 Visit Zahraa Thomasbenigno Lomeli 350.1.13.10 ity of [place]2.[place] [phone] Mt dical nal [address] [facility] 2020-11-27 2020-11-27 Routine Thomas Vital [facility] 1.2.550.280 [id number] Univers 13:36:20 14:30:59 Marquez [place] 350.1.13.10 ity of [place]2.[place] [phone] Mt dical nal [address] [facility] 2020-11-27 2020-11-27 Outpatient R THOMAS VITAL [facility] [id number] Univers 14:00:00 14:00:00 ity of [facility] 2020-11-27 2020-11-27 Orders Doctor MAZARIEGOS 1.2.840.114 [id number] Univers 00:00:00 00:00:00 Only Unassigned, ANAIS 350.1.13.10 ity of [place] [facility] 4.2.7.2.686 [place] as [phone] [address] 2020-11-24 2020-11-24 Hospital Thomas Vital [facility] 1.2.840.114 [id number] Univers 14:06:00 18:05:00 Encounter Cam [place] 350.1.13.10 ity of [place] [phone] [address] 2020-11-24 2020-11-24 Telephone Thomas Vital [facility] 1.2.840.114 [id number] Univers 00:00:00 00:00:00 Cam [place] 350.1.13.10 i ty [place] [phone] Mt dical nal [address] [facility] 2020-11-20 2020-11-20 [facility] 1.2.682.328 [id number] Univers 15:45:16 16:10:03 Cam [place] 350.1.13.10 ity of [place].2.[place] [phone] Mt dical nal [address] [facility] 2020-11-20 2020-11-20 Outpatient R ZAHRAA THOMAS [facility] [id number] Univers 15:45:00 15:45:00 ity of [facility] 2020-11-13 2020-11-13 Outpatient R VITAL [facility] [id number] Univers 16:15:00 16:15:00 ity of [facility] 2020-11-13 2020-11-13 [employer] 2, Adc Lab [facility] 1.2.840.114 [id number] Univers 14:20:31 14:35:31 Visit Thomas Vital 350.1.13.10 ity of [place] [phone] Mt dical nal [address] [facility] 2020-11-13 2020-11-13 Routine [facility] 1.2.509.611 [id number] Univers 13:23:18 14:17:01 [place] 350.1.13.10 ity of [place].2.[place] [phone] Mt dical nal [address] [facility] 2020-11-13 2020-11-13 Outpatient R VITAL THOMAS [facility] [id number] Univers 13:30:00 13:30:00 ity of [facility] 2020-10-29 2020-10-29 [facility] 1.2.022.998 [id number] Univers 14:16:13 15:14:33 Jackie [place] 350.1.13.10 ity of [place]2.[place] [phone] Mt dic[address] 2020-10-29 2020-10-29 Outpatient R ARGENIS [facility] [id number] Univers 14:15:00 14:15:[address] [facility] 2020-10-15 2020-10-15 Routine [facility] 1.2.249.654 [id number] Univers 15:56:05 16:40:25 Cam [place] 350.1.13.10 ity of [place].2.[place] [phone] Mt dical [address] 2020-10-15 2020-10-15 Outpatient R THOMAS VITAL [facility] [id number] Univers 16:00:00 16:00:00 ity of [facility] 2020-10-01 2020-10-01 Routine [facility] .2.071.620 [id number] Univers 15:40:33 16:40:08 Jackie [place] 350.1.13.10 ity of [place].2.[place] [phone] Mt dical [address] 2020-10-01 2020-10-01 Outpatient R ARGENIS [facility] [id number] Univers 15:30:00 15:30:[address] [facility] 2020-09-18 2020-09-18 Telephone [facility] .2.840.114 [id number] Univers 00:00:00 00:00:00 Jackie [place] 350.1.13.10 i ty [place] [phone] [facility] [address] [facility] 2020-09-16 2020-09-16 Nurse Nurse, [facility]'s [facility] 1.2.840.114 [id number] Univers 10:25:55 11:12:44 Visit Thomas Vital 350.1.13.10 ity of [place] [phone] [facility] [address] [facility] 2020-09-16 2020-09-16 [employer] 2, [facility] Lab [facility] 1.2.840.114 [id number] Univers 09:22:04 09:37:04 Visit Thomas Vital 350.1.13.10 ity of [place] [phone] [facility] [address] [facility] 2020-09-16 2020-09-16 Outpatient R [facility] [id number] Univers 09:15:00 09:15:00 ity of [facility] 2020-09-11 2020-09-11 Outpatient R [facility] [id number] Univers 13:45:00 13:45:00 ity of [facility] 2020-09-11 2020-09-11 [employer] 2, [facility] Lab [facility] 1.2.840.114 [id number] Univers 13:04:08 13:19:08 Visit Thomas Vital 350.1.13.10 ity of [place] [phone] [address] 2020-09-10 2020-09-10 Routine [facility] 1.2.809.864 [id number] Univers 16:00:53 17:27:46 Marquez Lomeli 350.1.13.10 ity of [place].2.[place] [phone] [address] 2020-09-10 2020-09-10 Outpatient R VITAL THOMAS [facility] [id number] Univers 16:15:00 16:15:00 ity of [facility] 2020-08-22 2020-08-22 [employer] Ultrasound, Adc [facility] 1.2 .840.114 [id number] Univers 12:59:13 13:29:13 Visit Thomas Vital Marquez Lomeli 350.1.13.10 ity of [place]2.[place] [phone] Mt dical nal [address] [place] [address] 2020-08-22 2020-08-22 Outpatient P [facility] [id number] Univers 13:00:00 13:00:00 ity of [facility] 2020-08-13 2020-08-13 Routine [facility] 1.2.196.198 [id number] Univers 15:38:35 15:53:35 Jackie Lomeli 350.1.13.10 ity of [place]2.[place] [phone] Mt dical nal [address] [place] [address] 2020-08-13 2020-08-13 Outpatient R ARGENIS [facility] [id number] Univers 15:30:00 15:30:[address] [facility] 2020-07-29 2020-07-29 Telephone Thomas Vital [facility] 1..840.114 [id number] Univers 00:00:00 00:00:00 Marquez Lomeli 350.1.13.10 i ty of [place] [phone] Mt dical nal [address] [place] [address] 2020-07-28 2020-07-28 Case Thomas Vital [facility] 1.2.287.575 [id number] Univers 00:00:00 00:00:00 Management Marquez Lomeli 350.1.13.10 ity of [place]2.[place] [phone] Mt dical nal [address] [place] [address] 2020-07-25 2020-07-25 [employer] Ultrasound, Adc [facility] 1.2 .840.114 [id number] Univers 13:41:34 15:25:03 Visit Osvaldo Cronin 350.1.13.10 ity of [place] [phone] [address] 2020-07-25 2020-07-25 Outpatient P [facility] [id number] Univers 14:00:00 14:00:00 ity of [facility] 2020-07-16 2020-07-16 Routine Thomas Vital [facility] 1.2.212.447 [id number] Univers 13:28:19 14:17:07 Cam [place] 350.1.13.10 ity of [place].2.[place] [phone] [address] 2020-07-16 2020-07-16 Outpatient R THOMAS VITAL [facility] [id number] Univers 13:00:00 13:00:00 ity of [facility] 2020-07-16 2020-07-16 Orders Doctor DELILAH 1.2.840.114 [id number] Univers 00:00:00 00:00:00 Only Unassigned, ANAIS 350.1.13.10 ity of [place] [facility] 4.2.7.2.686 Anton as [phone] [address] 2020-07-11 2020-07-11 Telephone Thomas Vital [facility] 1.2.840.114 [id number] Univers 00:00:00 00:00:00 Cam [place] 350.1.13.10 i ty of [place] [phone] [address] 2020-07-08 2020-07-08 Telephone Thomas Vital [facility] 1.2.840.114 [id number] Univers 00:00:00 00:00:00 Cam [place] 350.1.13.10 i ty of [place]2.[place] [phone] [address] 2020-07-07 2020-07-07 Orders Doctor DELILAH 1.2.840.114 [id number] Univers 00:00:00 00:00:00 Only Unassigned, ANAIS 350.1.13.10 ity of [place] [facility] 4.2.7.2.686 Anton as [id number] [address] 2020-07-02 2020-07-02 Telephone Thomas Vital [facility] 1.2.840.114 [id number] Univers 00:00:00 00:00:00 Cam [place] 350.1.13.10 i ty of [place]2.[place] [phone] Mt dical nal [address] [facility] 2020-07-02 2020-07-02 Telephone Thomas Vital [facility] 1.2.840.114 [id number] Univers 00:00:00 00:00:00 Cam [place] 350.1.13.10 i ty of [place]7.2.[place] [phone] Mt dical nal [address] [facility] 2020-06-30 2020-06-30 Telephone Thomas Vital [facility] [id number] Univers 00:00:00 00:00:00 [place] [id number] [id number] [phone] Mt dical nal 134 [facility] 2020-06-25 2020-06-25 Letter DELILAH Rojas 1.2.840.114 [id number] Univers 00:00:00 00:00:00 (Out) Karie MANZO [id number] it y of [facility] 4.2.7.2.686 [place] as [phone] [facility] [address] [place] 2020-06-25 2020-06-25 Telephone Thomas Vital [facility] 1.2.840.114 [id number] Univers 00:00:00 00:00:00 [place] [id number] [id number] [phone] Mt dical nal 134 [facility] 2020-06-24 2020-06-24 Emergency Robyn Espinoza [facility] 1.2.840.114 [id number] Univers 10:46:00 13:09:00 Deloris Lomeli 350.1.13.10 [id number] [phone] [facility] 084 [place] 2020-06-19 2020-06-19 [facility] Cutter 2, Adc Lab [facility] 1.2.840.114 [id number] Univers 11:48:54 12:03:54 Visit Thomas Vital Marquez Lomeli [id number] [id number] [phone] Mt dical [facility] 353 [facility] 2020-06-19 2020-06-19 Outpatient R [facility] [id number] Univers 11:45:00 11:45:00 ity of [facility] 2020-06-19 2020-06-19 Telephone Thomas Vital [facility] 1.2.840.114 [id number] Univers 00:00:00 00:00:00 Cam Arm[place] [id number] [id number] [phone] [facility] 134 [facility] 2020-06-19 2020-06-19 Orders Doctor MAZARIEGOS 1.2.840.114 [id number] Univers 00:00:00 00:00:00 Only Unassigned, ANASI [id number] ity of [place] [facility] 4.2.7.2.686 [place] as [phone] [address] 2020-06-18 2020-06-18 Initial Thomas Vital [facility] [id number] Univers 14:07:09 16:13:03 Marquez Armani 350.1.13.10 [id number] [phone] [facility] 134 [facility] 2020-06-18 2020-06-18 Outpatient R THOMAS VITAL [facility] [id number] Univers 14:15:00 14:15:00 ity of [facility] 2020-06-18 2020-06-18 Orders Doctor DELILAH 1.2.840.114 [id number] Univers 00:00:00 00:00:00 Only Unassigned, ANAIS [id number] ity of [place] [facility] 4.2.7.2.686 Anton as [phone] [address] 2020-06-17 2020-06-17 Outpatient R ZAHRAA THOMAS [facility] [id number] Univers 14:00:00 14:00:00 ity of [facility] 2020-06-11 2020-06-11 Outpatient R THOMAS VITAL [facility] [id number] Univers 14:00:00 14:00:00 ity of [facility] 2020-05-28 2020-05-28 Emergency Robyn Espinoza [facility] 1.2.840.114 [id number] Univers 09:58:00 11:05:00 Deloris Lomeli 350.1.13.10 [id number] [phone] [address] 2020-05-28 2020-05-28 Emergency Robyn Espinoza [facility] 1.2.840.114 [id number] 09:58:00 11:05:00 Deloris Lomeli [id number] [place] [id number] [place] [phone] [facility] 2020-02-28 2020-02-28 Urgent Pob1, Acute Care Clinic [facility] 1. 2.840.114 [id number] Univers 15:50:11 16:10:11 [facility] [email or web address] 350.1.13.10 [place]y of [place] [id number] [place] Professio [phone] Mt dical [address] [employer] 2020-02-28 2020-02-28 Urgent Pob1, Acute [facility] 1.2.840.114 [id number] 15:50:11 16:10:11 [facility] [id number] [place] [id number] [place] [phone] [place] [address] [address] 2020-02-28 2020-02-28 Outpatient R FLORESITA [facility] [id number] Univers 16:00:00 16:00:[address] [facility] Results This patient has no known results.
[2023-01-16] MEDS ORDERED: MORPHINE 4 MG/ML SYR ONE (21:37)
[2023-01-16] MEDS ORDERED: ONDANSETRON 4 MG/2 ML VIAL ONE (21:37)
[2023-01-16] MEDS ORDERED: KETOROLAC 30 MG/ML INJ ONE (21:37)
--- NOTE | 2023-01-16 22:01 | RAD REPORT ---
EXAM DESCRIPTION: RAD - Forearm Left - 01/16/2023 9:51 pm CLINICAL HISTORY: left forearm injury COMPARISON: No comparisons FINDINGS: No fracture or dislocation seen.
--- NOTE | 2023-01-16 22:03 | RAD REPORT ---
EXAM DESCRIPTION: RAD - Hand Left 3 View - 01/16/2023 9:54 pm CLINICAL HISTORY: left hand injury COMPARISON: No comparisons FINDINGS: No fracture or dislocation.
--- NOTE | 2023-01-16 22:03 | RAD REPORT ---
EXAM DESCRIPTION: RAD - Pelvis - 01/16/2023 9:51 pm CLINICAL HISTORY: fall, pelvic pain COMPARISON: <Comparisons> FINDINGS: No fracture, dislocation or radiographic evidence of AVN. IUD noted. IMPRESSION: Negative study.
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
[2023-01-17 00:50] VITALS: TEMP 98.4; O2SAT 100
[2023-01-17 00:51] VITALS: BP 106/66
== END 2023-01-16 23:51 | disposition home or self-care (01) ==
LOC: ER 21:14
DX: S63.8X2A Sprain of other part of left wrist and hand, initial encounter (principal); S30.0XXA Contusion of lower back and pelvis, initial encounter; S60.222A Contusion of left hand, initial encounter; S60.212A Contusion of left wrist, initial encounter; W19.XXXA Unspecified fall, initial encounter; F17.210 Nicotine dependence, cigarettes, uncomplicated
CPT/HCPCS: 72170; 73130; 73090; 96375; 96374; 99284; J2405

== ENCOUNTER 2023-08-11 09:08 | Observation (INO) | payer OTHER, SELFPAY ==
--- OUTSIDE RECORDS SUMMARY | 2023-08-11 09:10 | XMS REPORT | Continuity of Care Document ---
Author Name Unknown Address [address] [facility] [address] [place] [address] [facility] Address [address] [facility]. [address] [place] [address] Care Team Providers Care Building Insulation Installer Name Role Phone Tripp Troncoso Primary Care Physician [phone] THOMAS VITAL Attending Clinician Unavailable JENNIFER HAY Attending Clinician Unavail able Jennifer Gonzales Attending Clinician + [email or web address]_S Attending Clinician UnavailSHEYLA Gilbert Attending Clinician Unavailable Thomas Vital MD Attending Clinician [phone] JACKIE MORE Attending Clinician Unavailable PARK SHIPLEY Attending Clinician UnavailPARK Bautista Attending Clinician Unavaila maryuri Doctor Unassigned, [place] Attending Clinician U rafaela Pinon MD, Dusty Attending Clinician [phone] Jackie More PA-C Attending Clinician [phone] Nurse, [facility] Attending Clinician Un available Maria L Faust MD, Leonard Attending Clinician + [phone] Only, Adc Test Attending Clinician Unavailable Pob, [facility] Lab Main Attending Clinician Unavailabl e 2, Ad[facility] Lab Attending Clinician Unavailable Ultrasound, Adc Mfm Attending Clinician Unavaila ble Mehrdad MD, Osvaldo F Attending Clinician [phone] Bob RN, Karie Nelson Attending Clinician Unavailab david DAO, Robyn Puentes Attending Clinician [phone] Pob1, Acute [facility] Attending Clinician Unav ailable Floresita AVITIA, Adriane Attending Clinician [phone] ADRIANE CANAS Attending Clinician Unavailable THOMAS VITAL Admitting Clinician Unavailable [email or web address] Admitting Clinician Adelina Vital MD, Thomas Zayas Admitting Clinician [phone] Payers Payer Name Policy Type Policy Number Effective Date Expirati on Date Source [facility] [id number] 2020 00:00:00 BCBS [facility] [id number] 2009 00:00:00 [place] [id number] 2020 00:00:00 Problems Condition Name Condition Details Condition Category Status Onset Date Resolution Date Last Treatment Date Treating Clinician Comments Source Vaginal discharge Vaginal discharge Disease Active 11-24 00:00: 00 [facility] BMI 25.0-25.9, adult BMI 25.0-25.9, adult Disease Active 11-24 00:00: 00 [facility] Presence of intrauteri ne contracept marilyn device Presence of intrauteri ne contracept marilyn device Disease Active 11-24 00:00: 00 [facility] BMI 25.0-25.9, adult BMI 25.0-25.9, adult Disease Active 11-24 00:00: 00 [facility] Stress incontinen ce Stress incontinen ce Disease Active 2020-09 00:00: 00 [facility] Decreased libido Decreased libido Disease Active 2020-09 00:00: 00 [facility] Breakthrou gh bleeding with IUD Breakthrou gh bleeding with IUD Disease Active 2020-09 00:00: 00 [facility] Obesity (BMI 30-39.9) Obesity (BMI 30-39.9) Disease Active 11-13 00:00: 00 [facility] 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 Disease Active 2-10 00:00: 00 [facility] Rh negative, antepartum Rh negative, antepartum Disease Active 1-06 00:00: 00 [facility] Previous section Previous section Disease Active 2019-09 0-14 00:00: 00 [facility] Allergies, Adverse Reactions, Alerts Allergy Name Allergy Type Status Severity Reaction(s) Onset Date Inactive Date Treating Clinician Comments Source NO KNOWN ALLERGIE S Drug Class Active [facility] Social History Social Habit Start Date Stop Date Quantity Comments Source ASSERTION [facility] of Social function 2021-11-24 00:00:00 2021-11-24 00:00:00 [facility] Alcohol intake 2021-11-24 00:00:00 2021-11-24 00:00:00 Current non-drinker of alcohol (finding) [facility] Exposure to SARS-CoV-2 (event) 2021-07-13 00:00:00 2021-08-12 15:01:00 Not sure [facility] Tobacco use and exposure 2017-09-26 00:00:00 2017-09-26 00:00:00 Smokeless tobacco non-user [facility] Sex Assigned At 1995 00:00:00 1995 00:00:00 [facility] Smoking Status Start Date Stop Date Source Never smoked tobacco [facility] Medications Ordered Medication Name Filled Medication Name Start Date Stop Date Current Medication? Ordering Clinician Indication Dosage Frequency Signature (SIG) Comments Components Source No known medications 11-24 15:20: 58 No [facility] No known medications 11-24 15:20: 58 No No known medication s [facility] ibuprofen 600 mg tablet 3 00:00: 00 11-24 00:00 :00 No [id number] 600mg Take 1 tablet by mouth every 6 (six) hours as needed (Pain). Take with food or milk. [facility] Immunizations Ordered Immunization Name Filled Immunization Name Date Status Comments Source TDAP 2020-10-01 00:00:00 Completed [facility] TDAP 2020-10-01 00:00:00 Completed [facility] TDAP 2020-10-01 00:00:00 Completed [facility] Rho (d) Immune Globulin 2020-09-16 00:00:00 Completed [facility] Rho (d) Immune Globulin 2020-09-16 00:00:00 Completed [facility] Rho (d) Immune Globulin 2020-09-16 00:00:00 Completed [facility] Rho (d) Immune Globulin 2017-09-28 00:00:00 Completed [facility] Rho (d) Immune Globulin 2017-09-28 00:00:00 Completed [facility] Rho (d) Immune Globulin 2017-09-28 00:00:00 Completed [facility] Rho (d) Immune Globulin Unknown Completed [facility] Rho (d) Immune Globulin Unknown Completed [facility] Rho (d) Immune Globulin Unknown Completed [facility] TDAP Unknown Completed [facility] Vital Signs Vital Name Observation Time Observation Value Comments S ource Systolic blood pressure 2021-11-24 19:21:00 114 mm[Hg] [facility] Diastolic blood pressure 2021-11-24 19:21:00 75 mm[Hg] [facility] Heart rate 2021-11-24 19:21:00 80 /min [facility] Body temperature 2021-11-24 19:21:00 36.61 Lilian [facility] Respiratory rate 2021-11-24 19:21:00 18 /min [facility] Body height 2021-11-24 19:21:00 162.6 cm [facility] Body weight 2021-11-24 19:21:00 67.405 kg [facility] BMI 2021-11-24 19:21:00 25.51 kg/m2 [facility] Oxygen saturation in Arterial blood by Pulse oximetry 2021-11-24 19:21:00 98 /min [facility] Encounters Start Date/Time End Date/Time Encounter Type Admission Type Attending Clinicians Care Facility Care Department Encounter ID Source 2021-07-07 07:07:37 Emergency [facility] [id number] [facility] 2021-07-05 07:37:18 Outpatient P THOMAS VITAL [facility] YOLY [id number] [facility] 2021-07-04 22:32:56 Emergency [facility] [id number] [facility] 2021-07-03 23:56:07 Emergency [facility] [id number] [facility] 2021-07-03 18:58:22 Emergency [facility] [id number] [facility] 2023-08-09 00:00:00 2023-08-09 00:00:00 Telephone Jennifer Hay [facility] PROFESSOR OF RELIGION [facility] .2.840.114 350.1.13.10 4.2.7.2.686 [id number] [facility] 2023-07-03 00:00:00 2023-07-03 00:00:00 Outpatient [email or web address] diyala_S PRIV [facility] [id number] [facility] 2022-05-06 13:30:00 2022-05-06 13:30:00 Outpatient SHEYLA FORMAN [facility] [id number] [facility] 2022-03-22 00:00:00 2022-03-22 00:00:00 Telephone [facility] ..840.114 350.1.13.10 4.2.7.2.686 [id number] [facility] 2022-01-27 15:00:00 2022-01-27 15:00:00 Outpatient JACKIE COHEN [facility] [id number] [facility] 2022-01-27 15:00:00 2022-01-27 15:00:00 Outpatient JACKIE COHEN [facility] [id number] [facility] 2022-01-27 15:00:00 2022-01-27 15:00:00 Outpatient R JACKIE MORE [facility] [id number] [facility] 2021-12-24 13:30:00 2021-12-24 13:30:00 Outpatient R SHEYLA FREEDMAN [facility] [id number] [facility] 2021-12-14 13:30:00 2021-12-14 13:30:00 Outpatient R SHEYLA FREEDMAN [facility] [id number] [facility] 2021-12-07 00:00:00 2021-12-07 00:00:00 Telephone GeraldThomas [facility] BUILDING 1.84.114 350.1.13.10 4.2.7.2.686 [id number] [facility] 2021-11-24 14:00:00 2021-11-24 14:49:04 [facility] [id number] [facility] 2021-11-24 14:00:00 2021-11-24 14:49:[address] [facility] 1..114 350.1.13.10 4.2.7.2.686 [id number] [facility] 2021-11-24 00:00:00 2021-11-24 00:00:[address] [facility] 1..114 350.1.13.10 4.2.7.2.686 [id number] 134 [id number] [facility] 2021-11-23 00:00:00 2021-11-23 00:00:00 Telephone GeraldThomas [facility] BUILDING 1.840.114 350.1.13.10 4.2.7.2.686 [id number] [facility] 2021-11-10 13:30:00 2021-11-10 13:30:00 Outpatient R THOMAS VITAL [facility] [id number] [facility] 2021-10-16 00:00:00 2021-10-16 00:00:00 Orders Only Doctor Unassigned, [place] [facility] 1.2840.114 350.1.13.10 4.2.7.2.686 [id number] [id number] [facility] 2021-08-13 14:30:00 2021-08-13 14:30:00 Outpatient R [facility] [id number] [facility] 2021-08-13 14:30:00 2021-08-13 14:30:00 Outpatient R [facility] [id number] [facility] 2021-08-12 15:03:21 2021-08-12 16:15:18 Office Visit VitalThomas [facility] 1..840.114 350.1.13.10 4.2.7.2.686 [id number] [facility] 2021-08-12 15:00:00 2021-08-12 16:15:18 Outpatient R ADEEL VITALEN [facility] [id number] [facility] 2021-08-12 00:00:00 2021-08-12 00:00:00 Orders Only Doctor Unassigned, [place] [facility] 1.2840.114 350.1.13.10 4.2.7.2.686 [id number] [facility] 2021-07-02 00:00:00 2021-07-02 00:00:00 Telephone VitalThomas [facility] 1.2.840.114 350.1.13.10 4.2.7.2.686 [id number] [facility] 2021-06-19 12:18:00 2021-06-19 15:25:00 Emergency Dusty Pinon [facility] 1.840.114 350.1.13.10 4.2.7.2.686 [id number] [facility] 2021-02-09 13:30:00 2021-02-09 13:30:00 Outpatient R THOMAS VITAL [facility] [id number] [facility] 2021-01-01 16:01:31 2021-01-01 17:29:57 Office Visit Thomas Vital [facility] Building 1..840.114 350.1.13.10 4.2.7.2.686 [id number] [facility] 2021-01-01 16:00:00 2021-01-01 16:00:00 Outpatient R VITAL THOMAS [facility] [id number] [facility] 2021-01-01 00:00:00 2021-01-01 00:00:00 Orders Only Doctor Unassigned, [place] [facility] 1.840.114 350.1.13.10 4.2.7.2.686 [id number] [id number] [facility] 2020-12-25 15:38:03 2020-12-25 16:33:21 Routine Visit Jackie More [facility] Building 1.2.840.114 350.1.13.10 4.2.7.2.686 [id number] [facility] 2020-12-25 15:30:00 2020-12-25 15:30:00 Outpatient R ARGENIS [facility] [id number] [facility] 2020-12-11 15:33:47 2020-12-11 16:10:39 Nurse Visit Nurse, [facility] VitalThomas [facility] 1.2.840.114 350.1.13.10 4.2.7.2.686 [id number] [facility] 2020-12-11 15:30:00 2020-12-11 15:30:00 Outpatient R [facility] [id number] [facility] 2020-12-08 00:00:00 2020-12-08 00:00:00 Telephone Thomas Vital [facility] Building 1.2840.114 350.1.13.10 4.2.7.2.686 [id number] [facility] 2020-12-01 07:20:00 2020-12-03 11:55:00 Hospital Encounter Thomas Vital [facility] 1.2840.114 350.1.13.10 4.2.7.2.686 [id number] [facility] 2020-12-01 10:58:00 2020-12-01 12:22:00 Anesthesia Event Mandeep Lisa [facility] 1.840.114 350.1.13.10 4.2.7.2.686 [id number] [facility] 2020-12-01 09:30:00 2020-12-01 09:30:00 Outpatient P THOMAS VITAL [facility] YOLY [id number] [facility] 2020-12-01 00:00:00 2020-12-01 00:00:00 Orders Only Doctor Unassigned, [place] [facility] 1.2840.114 350.1.13.10 4.2.7.2.686 [id number] [facility] 2020-11-27 15:06:05 2020-11-27 15:21:05 Laboratory Only Only, Adc Test Thomas Vital [facility] 1.2840.114 350.1.13.10 4.2.7.2.686 [id number] [facility] 2020-11-27 15:04:47 2020-11-27 15:19:47 Aerospace Technician Visit Pob, Adc Lab Main Thomas Vital [facility] Building 1.2.840.114 350.1.13.10 4.2.7.2.686 [id number] [facility] 2020-11-27 13:36:20 2020-11-27 14:30:59 Routine Visit Thomas Vital [facility] 1.2.840.114 350.1.13.10 4.2.7.2.686 [id number] [facility] 2020-11-27 14:00:00 2020-11-27 14:00:00 Outpatient R THOMAS VITAL [facility] [id number] [facility] 2020-11-27 00:00:00 2020-11-27 00:00:00 Orders Only Doctor Unassigned, [place] [facility] 1.2.840.114 350.1.13.10 4.2.7.2.686 [id number] [facility] 2020-11-24 14:06:00 2020-11-24 18:05:00 Hospital Encounter Thomas Vital [facility] 1.2.840.114 350.1.13.10 4.2.7.2.686 [id number] [facility] 2020-11-24 00:00:00 2020-11-24 00:00:00 Telephone Thomas Vital [facility] Building 1.2.840.114 350.1.13.10 4.2.7.2.686 [id number] [facility] 2020-11-20 15:45:16 2020-11-20 16:10:03 Routine Visit Thomas Vital [facility] Building 1.2.840.114 350.1.13.10 4.2.7.2.686 [id number] [facility] 2020-11-20 15:45:00 2020-11-20 15:45:00 Outpatient R THOMAS VITAL [facility] [id number] [facility] 2020-11-13 16:15:00 2020-11-13 16:15:00 Outpatient R THOMAS VITAL [facility] [id number] [facility] 2020-11-13 14:20:31 2020-11-13 14:35:31 Aerospace Technician Visit 2, Adc Lab Thomas Vital [facility] Building 1.2.840.114 350.1.13.10 4.2.7.2.686 [id number] [facility] 2020-11-13 13:23:18 2020-11-13 14:17:01 Routine Visit Thomas Vital [facility] Building 1.2.840.114 350.1.13.10 4.2.7.2.686 [id number] [facility] 2020-11-13 13:30:00 2020-11-13 13:30:00 Outpatient R THOMAS VITAL [facility] [id number] [facility] 2020-10-29 14:16:13 2020-10-29 15:14:33 Routine Visit Argenis Jackie [facility] Building 1.2.840.114 350.1.13.10 4.2.7.2.686 [id number] [facility] 2020-10-29 14:15:00 2020-10-29 14:15:00 Outpatient R ARGENIS [facility] [id number] [facility] 2020-10-15 15:56:05 2020-10-15 16:40:25 Routine Visit Thomas Vital [facility] nal Building 1.2.840.114 350.1.13.10 4.2.7.2.686 [id number] [facility] 2020-10-15 16:00:00 2020-10-15 16:00:00 Outpatient R THOMAS VITAL [facility] [id number] [facility] 2020-10-01 15:40:33 2020-10-01 16:40:08 Routine Visit Jackie More [facility] 1.2.840.114 350.1.13.10 4.2.7.2.686 [id number] [facility] 2020-10-01 15:30:00 2020-10-01 15:30:00 [facility] [id number] [facility] 2020-09-18 00:00:00 2020-09-18 00:00:00 Telephone Jackie More [facility] Building 1.2.840.114 350.1.13.10 4.2.7.2.686 [id number] [facility] 2020-09-16 10:25:55 2020-09-16 11:12:44 Nurse Visit Nurse, [facility] 1.2.840.114 350.1.13.10 4.2.7.2.686 [id number] [facility] 2020-09-16 09:22:04 2020-09-16 09:37:04 Aerospace Technician Visit 2, [facility] Lab Thomas Vital [facility] Miguel nal Building 1.2.840.114 350.1.13.10 4.2.7.2.686 [id number] [facility] 2020-09-16 09:15:00 2020-09-16 09:15:00 Outpatient R [facility] [id number] [facility] 2020-09-11 13:45:00 2020-09-11 13:45:00 Outpatient R [facility] [id number] [facility] 2020-09-11 13:04:08 2020-09-11 13:19:08 Aerospace Technician Visit 2, Adc Lab Thomas Vital [facility] nal Building 1.2.840.114 350.1.13.10 4.2.7.2.686 [id number] [facility] 2020-09-10 16:00:53 2020-09-10 17:27:46 Routine Visit Thomas Vital [facility] Building 1.2.840.114 350.1.13.10 4.2.7.2.686 [id number] [facility] 2020-09-10 16:15:00 2020-09-10 16:15:00 Outpatient R THOMAS VITAL [facility] [id number] [facility] 2020-08-22 12:59:13 2020-08-22 13:29:13 Aerospace Technician Visit Ultrasound, [facility] Thomas Vital [facility] Building 1.2.840.114 350.1.13.10 4.2.7.2.686 [id number] [facility] 2020-08-22 13:00:00 2020-08-22 13:00:00 Outpatient P [facility] [id number] [facility] 2020-08-13 15:38:35 2020-08-13 15:53:35 Routine Visit Jackie More [facility] Building 1.2.840.114 350.1.13.10 4.2.7.2.686 [id number] [facility] 2020-08-13 15:30:00 2020-08-13 15:30:00 Outpatient R WARRENJACKIE HIGGINS [facility] [id number] [facility] 2020-07-29 00:00:00 2020-07-29 00:00:00 Telephone Thomas Vital [facility] 1.2.114 350.1.13.10 4.2.7.2.686 [id number] 134 [id number] [facility] 2020-07-28 00:00:00 2020-07-28 00:00:00 Case Management Thomas Vital [facility] 1..114 350.1.13.10 4.2.7.2.686 [id number] 134 [id number] [facility] 2020-07-25 13:41:34 2020-07-25 15:25:03 Aerospace Technician Visit Ultrasound, Adc Osvaldo Tomlinson [facility] 1..114 350.1.13.10 4.2.7.2.686 [id number] 134 [id number] [facility] 2020-07-25 14:00:00 2020-07-25 14:00:00 Outpatient P [facility] [id number] [facility] 2020-07-16 13:28:19 2020-07-16 14:17:07 Routine Visit Thomas Vital [facility] 1.2.114 350.1.13.10 4.2.7.2.686 [id number] [facility] 2020-07-16 13:00:00 2020-07-16 13:00:00 Outpatient R THOMAS VITAL [facility] [id number] [facility] 2020-07-16 00:00:00 2020-07-16 00:00:00 Orders Only Doctor Unassigned, [place] [facility] 1..114 350.1.13.10 4.2.7.2.686 [id number] [facility] 2020-07-11 00:00:00 2020-07-11 00:00:00 Telephone Thomas Vital [facility] Building 1.2.840.114 350.1.13.10 4.2.7.2.686 [id number] 134 [id number] [facility] 2020-07-08 00:00:00 2020-07-08 00:00:00 Patient Secure Msg Doctor Unassigned, [place] [facility] 1.2840.114 350.1.13.10 4.2.7.2.686 [id number] 134 [id number] [facility] 2020-07-08 00:00:00 2020-07-08 00:00:00 Telephone Thomas Vital [facility] Building 1.2840.114 350.1.13.10 4.2.7.2.686 [id number] [facility] 2020-07-07 00:00:00 2020-07-07 00:00:00 Orders Only Doctor Unassigned, [place] [facility] 1.2.840.114 350.1.13.10 4.2.7.2.686 [id number] [facility] 2020-07-02 00:00:00 2020-07-02 00:00:00 Telephone Thomas Vital [facility] Building 1.2.840.114 350.1.13.10 4.2.7.2.686 [id number] 134 [id number] [facility] 2020-07-02 00:00:00 2020-07-02 00:00:00 Telephone Thomas Vital [facility] Building 1.2.840.114 350.1.13.10 4.2.7.2.686 [id number] 134 [id number] [facility] 2020-06-30 00:00:00 2020-06-30 00:00:00 Telephone Thomas Vital [facility] Building 1.2.840.114 350.1.13.10 4.2.7.2.686 [id number] 134 [id number] [facility] 2020-06-25 00:00:00 2020-06-25 00:00:00 Letter (Out) Karie Rojas [facility] 1.2.840.114 350.1.13.10 4.2.7.2.686 [id number] [facility] 2020-06-25 00:00:00 2020-06-25 00:00:00 Telephone Thomas Vital [facility] Building 1.2.840.114 350.1.13.10 4.2.7.2.686 [id number] [facility] 2020-06-24 10:46:00 2020-06-24 13:09:00 Emergency Robyn Espinoza [facility] 1.2.840.114 350.1.13.10 4.2.7.2.686 [id number] [facility] 2020-06-19 11:48:54 2020-06-19 12:03:54 Aerospace Technician Visit 2, Adc Lab Thomas Vital [facility] Building 1.2.840.114 350.1.13.10 4.2.7.2.686 [id number] [facility] 2020-06-19 11:45:00 2020-06-19 11:45:00 Outpatient R [facility] [id number] [facility] 2020-06-19 00:00:00 2020-06-19 00:00:00 Orders Only Doctor Unassigned, [place] [facility] 1.2.840.114 350.1.13.10 4.2.7.2.686 [id number] [facility] 2020-06-19 00:00:00 2020-06-19 00:00:00 Telephone Thomas Vital [facility] Building 1.2.840.114 350.1.13.10 4.2.7.2.686 [id number] 134 [id number] [facility] 2020-06-18 14:07:09 2020-06-18 16:13:03 Initial Visit Thomas Vital [facility] Building 1.2.840.114 350.1.13.10 4.2.7.2.686 [id number] [facility] 2020-06-18 14:15:00 2020-06-18 14:15:00 Outpatient R THOMAS VITAL [facility] [id number] [facility] 2020-06-18 00:00:00 2020-06-18 00:00:00 Orders Only Doctor Unassigned, [place] [facility] 1.2.840.114 350.1.13.10 [id number] [facility] 2020-06-17 14:00:00 2020-06-17 14:00:00 Outpatient R THOMAS VITAL [facility] [id number] [facility] 2020-06-11 14:00:00 2020-06-11 14:00:00 Outpatient R THOMAS VITAL [facility] [id number] [facility] 2020-05-28 09:58:00 2020-05-28 11:05:00 [facility] [id number] [facility] 2020-05-28 09:58:00 2020-05-28 11:05:00 Emergency Alexis Robyn [facility] [id number] 2020-02-28 15:50:11 2020-02-28 16:10:11 Urgent Care Pob1, Acute Care Clinic Janessa Canasthia [facility] [address] [id number] [facility] 2020-02-28 15:50:11 2020-02-28 16:10:11 Urgent Care Pob1, Acute Care [facility] [id number] 2020-02-28 16:00:00 2020-02-28 16:00:00 Outpatient ADRIANE DE LA ROSA [facility] [id number] [facility]
[2023-08-11 10:18] LABS: Hematocrit 36.7 % (36.0-45.0); Lymphocytes % 13.8 % (15.3-44.8); MCV 91.1 fL (80-100); MPV 7.2 fL (7.6-11.3); Platelets 353 thou/uL (152-406); RBC Red Blood Cell Count 4.03 M/uL (3.86-4.86)
[2023-08-11] MEDS ORDERED: ONDANSETRON 4 MG/2 ML VIAL ONE (10:28)
[2023-08-11] MEDS ORDERED: MORPHINE 4 MG/ML SYR ONE (10:28)
[2023-08-11] MEDS ORDERED: NA CHLORIDE 0.9% 1,000 ML ONE ×2 (10:28→13:16)
[2023-08-11 10:29] LABS: Bilirubin Total 0.2 mg/dL (0.2-1.0); Potassium 3.9 mEq/L (3.5-5.1); Protein, Total 6.8 g/dL (6.4-8.2)
--- NOTE | 2023-08-11 10:31 | RAD REPORT ---
EXAM DESCRIPTION: US - Transvaginal Study Probe - 08/11/2023 9:56 am CLINICAL HISTORY: Pelvic pain. IUD placement COMPARISON: 2021 FINDINGS: The uterus measures 8 x 4 cm. A fibroid is not seen. An IUD is present within the uterine endometrium extending into the fundus. The ovaries are normal in size and echotexture. Ovaries contain many follicles. The right and left adnexa unremarkable No significant free fluid is seen. IMPRESSION: IUD in place Ovaries contain many follicles which is nonspecific but can be seen in polycystic ovarian syndrome
[2023-08-11 10:32] LABS: Specific Gravity 1.021 (1.005-1.030)
[2023-08-11 10:35] LABS: Specific Gravity 1.021 (1.005-1.030); Urine Bacteria 20-50 /HPF (<20); Urine Bilirubin NEGATIVE (Negative); Urine Blood 2+ (Negative); Urine Clarity Extremely Turbid (Clear); Urine Color Light-Orange (Yellow); Urine Glucose NEGATIVE (Negative); Urine Mucus 2+ /HPF (None Seen); Urine Protein 2+ (Negative); Urine RBC >50 /HPF (None Seen); Urine Urobilinogen Normal (Normal); Urine pH 6.5 (5.0-7.0)
--- NOTE | 2023-08-11 11:12 | RAD REPORT ---
EXAM DESCRIPTION: CT - Abdomen Pelvis W Contrast - 08/11/2023 10:43 am CLINICAL HISTORY: Abdominal pain COMPARISON: 2021 TECHNIQUE: Computed axial tomography of the abdomen pelvis was obtained. 100 cc Isovue-300 was admin istered intravenously. Oral contrast was not requested which limits evaluation of bowel and appendix All CT scans are performed using dose optimization technique as appropriate and may include automated exposure control or mA/KV adjustment according to patient size. FINDINGS: The liver, spleen, pancreas, adrenal and kidneys appear unremarkable. There is no evidence of diverticulitis. Normal appendix. No adnexal mass. IUD within the uterus. Moderate amount stool within the transverse and right colon IMPRESSION: Moderate amount stool within the transverse and right colon
--- NOTE | 2023-08-11 11:18 | ER ---
Nurse's Notes [facility] Name: Maricruz Bacon Age: 28 yrs Sex: Female : 1995 Arrival Date: 08/11/2023 Time: 09:08 Bed 17 Private MD: Diagnosis: UTI/ Urinary tract infection, site not specified;Sepsis, unspecified organism Presentation: 08/11 09:19 Chief complaint: Patient states: my copper IUD shifted , the pain is very bad, I've iw been bleeding X 4-5 days, it hurts to pee , I feel like I have to pee every 5-10 minutes. Coronavirus screen: At this time, the client does not indicate any symptoms associated with coronavirus-19. Ebola Screen: Patient negative for fever greater than or equal to 101.5 degrees Fahrenheit, and additional compatible Ebola Virus Disease symptoms Patient denies exposure to infectious person. Patient denies travel to an Ebola-affected area in the 21 days before illness onset. No symptoms or risks identified at this time. Initial Sepsis Screen: Does the patient meet any 2 criteria? No. Patient's initial sepsis screen is negative. Does the patient have a suspected source of infection? No. Patient's initial sepsis screen is negative. Risk Assessment: Do you want to hurt yourself or someone else? Patient reports no desire to harm self or others. Onset of symptoms was August 06, 2023. 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 - Social history:: Smoking status: Patient reports the use of cigarette tobacco products, smokes one-half pack cigarettes per day. Screenin:10 [facility] ED Fall Risk Assessment (Adult) History of falling in the last 3 months, db including since admission No falls in past 3 months (0 pts) Score/Fall Risk Level 0 - 2 = Low Risk Oriented to surroundings, Maintained a safe environment. Abuse screen: Denies threats or abuse. Denies injuries from another. Nutritional screening: No deficits noted. Tuberculosis screening: No symptoms or risk factors identified. Assessment: 10:10 Reassessment: Patient appears in no apparent distress at this time. Patient and/or db family updated on plan of care and expected duration. Pain level reassessed. Patient is alert, oriented x 3, equal unlabored respirations, skin warm/dry/pink. General: Appears in no apparent distress. comfortable, Behavior is calm, cooperative. Pain: Complains of pain in abdomen and pelvis. Neuro: Level of Consciousness is awake, alert, obeys commands, Oriented to person, place, time, situation. Respiratory: Airway is patent Respiratory effort is even, unlabored, Respiratory pattern is regular, symmetrical. 11:15 Reassessment: Patient appears in no apparent distress at this time. Patient and/or db family updated on plan of care and expected duration. Pain level reassessed. Patient is alert, oriented x 3, equal unlabored respirations, skin warm/dry/pink. General: Appears in no apparent distress. comfortable, Behavior is calm, cooperative. 12:33 Reassessment: Patient appears in no apparent distress at this time. Patient and/or db family updated on plan of care and expected duration. Pain level reassessed. Patient is alert, oriented x 3, equal unlabored respirations, skin warm/dry/pink. General: Appears in no apparent distress. comfortable, Behavior is calm, cooperative. 13:22 Reassessment: CALLED 4TH FLOOR TO GIVE REPORT. CHARGE NURSE STATES WILL SEE WHO IS db GETTING PATIENT AND MAKE SURE THERE IS A BED IN THE ROOM AND CALL BACK. 14:04 Reassessment: Patient appears in no apparent distress at this time. Patient and/or db family updated on plan of care and expected duration. Pain level reassessed. Patient is alert, oriented x 3, equal unlabored respirations, skin warm/dry/pink. 14:10 Reassessment: REPORT GIVEN TO SYLVIA PRICE. db Vital Signs: 09:19 BP 120 / 78; Pulse 106; Resp 16; Temp 98.7; Pulse Ox 100% ; iw 10:16 BP 117 / 71; Pulse 93; Resp 16; Pulse Ox 100% ; db 11:30 BP 108 / 78; Pulse 93; Resp 16; Pulse Ox 98% on R/A; db 13:09 BP 115 / 83; Pulse 90; Resp 16; Pulse Ox 98% on R/A; db 13:30 BP 105 / 68; Pulse 96; Resp 16; Pulse Ox 97% on R/A; db 14:00 BP 99 / 65; Pulse 103; Resp 14; Pulse Ox 99% ; db Vitals: 13:21 Cardiac Rhythm Assessment Regular Sinus rhythm. db ED Course: 09:10 Patient arrived in ED. rg4 09:15 Sae King MD is Attending Physician. ec2 09:21 Triage completed. iw 09:21 Arm band placed on. iw 09:58 Transvaginal Study Probe In Process Unspecified. EDMS 10:06 Inserted saline lock: 22 gauge in right antecubital area, using aseptic technique. ds4 Blood collected. 10:10 Patient has correct armband on for positive identification. Bed in low position. Call db light in reach. Side rails up X 1. Pulse ox on. NIBP on. Warm blanket given. 10:28 Vesna Archuleta, SYLVIA is Primary Nurse. db 10:44 CT Abd/Pelvis - IV Contrast Only In Process Unspecified. EDMS 11:17 Hakeem Guan MD is Hospitalizing Provider. ec2 12:33 Assist provider with pelvic exam: Set up pelvic tray. Performed by Sae King MD db Specimens sent to lab. Patient tolerated well. 13:19 EKG done, by ED staff, reviewed by Sae King MD. db 14:30 Provided Education on: ADMISSION AND UTI. db 14:30 Patient admitted, IV remains in place. db Administered Medications: 10:15 Drug: NS 0.9% IV 1000 ml IV at 1 bolus Per protocol; 1000 mL bolus Route: IV; Rate: 1 db bolus; Site: right antecubital; 12:19 Follow up: Response: No adverse reaction; IV Status: Completed infusion; IV Intake: cm10 1000ml 10:16 Drug: Ondansetron IVP 4 mg IVP once; over 2 minutes Route: IVP; Site: right antecubital;db 14:12 Follow up: Response: No adverse reaction db 10:17 Drug: morphine IVP or IV 4 mg IVP once over 4 mins Route: IVP; Infused Over: 4 mins; db Site: right antecubital; 14:12 Follow up: Response: No adverse reaction db 11:32 Drug: Rocephin IV 1 grams IV at bolus once; Given slow IV push per pharmacy db instructions Route: IV; Rate: bolus; Site: right antecubital; 12:18 Follow up: Response: No adverse reaction; IV Status: Completed infusion; IV Intake: cm10 100ml 13:00 Drug: NS 0.9% IV 1000 ml IV at 1 bolus Per protocol; 1000 mL bolus Route: IV; Rate: 1 db bolus; Site: right antecubital; 14:12 Follow up: Response: No adverse reaction; IV Status: Completed infusion; IV Intake: db 1000ml 13:05 Drug: Doxycycline PO 100 mg PO once Route: PO; db 14:12 Follow up: Response: No adverse reaction db Medication: 10:10 VIS not applicable for this client. db Intake: 12:18 IV: 100ml; Total: 100ml. cm10 12:19 IV: 1000ml; Total: 1100ml. cm10 14:12 IV: 1000ml; Total: 2100ml. db Outcome: 11:17 Decision to Hospitalize by Provider. ec2 14:30 Admitted to Med/surg accompanied by tech, via wheelchair, with chart, Report called to db DEE 14:30 Condition: stable 14:30 Instructed on the need for admit, 14:31 Patient left the ED. db Signatures: Dispatcher [employer] Altagracia Thomas RN RN Deni Anand ds4 Zoe Crump rg4 Vesna Archuleta RN RN db Martinez, Clarissa, RN RN cm10 Sae King MD MD ec2 Corrections: (The following items were deleted from the chart) 09:21 09:19 BP 120 / 78; Pulse 106bpm; [facility] 14:10 10:10 Social history: Smoking status: Patient denies any tobacco usage or history of. dbdb
--- NOTE | 2023-08-11 11:18 | EDPHYS ---
Physician Documentation [facility] Name: Maricruz Bacon Age: 28 yrs Sex: Female : 1995 Arrival Date: 08/11/2023 Time: 09:08 Bed 17 Private MD: ED Physician Sae King HPI: 08/11 09:25 This 28 yrs old Female presents to ER via Ambulatory with complaints of ec2 Control Problem. 09:25 Patient arrives today due to concern for diffuse abdominal pain as well as dysuria. ec2 Patient reports she been having generalized abdominal pain ongoing for 4 to 5 days. States the pain has been intermittent and progressively worsening. States that she is concerned about her IUD, states that this was placed approximately 2 and half years ago. Patient reports that she has had some associated nausea without vomiting, no change in bowel patterns. Patient also with reports of dysuria as well as vaginal discharge. States that she does not typically have any vaginal bleeding however has recently had some vaginal bleeding that she noted. 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 - Social history:: Smoking status: Patient reports the use of cigarette tobacco products, smokes one-half pack cigarettes per day. ROS: 09:27 Constitutional: as per hpi ec2 Exam: 09:27 Constitutional: GEN: NAD Head: atraumatic Eyes: EOMI Ears: External ears are ec2 normal. CV: Tachycardia LUNGS: no respiratory distress ABD: non-distended, soft, tender throughout the abdomen, no guarding, not rigid SKIN: no evidence of rashes MSK: no evidence of trauma NEURO: moves all extremities equally Vital Signs: 09:19 BP 120 / 78; Pulse 106; Resp 16; Temp 98.7; Pulse Ox 100% ; iw 10:16 BP 117 / 71; Pulse 93; Resp 16; Pulse Ox 100% ; db 11:30 BP 108 / 78; Pulse 93; Resp 16; Pulse Ox 98% on R/A; db 13:09 BP 115 / 83; Pulse 90; Resp 16; Pulse Ox 98% on R/A; db 13:30 BP 105 / 68; Pulse 96; Resp 16; Pulse Ox 97% on R/A; db 14:00 BP 99 / 65; Pulse 103; Resp 14; Pulse Ox 99% ; db MDM: 09:15 Patient medically screened. ec2 09:27 Data reviewed: vital signs. ED course: Patient arrives today due to concern for ec2 abdominal pain with associated urine problems as well as vaginal complaints. Examination remarkable for slightly tachycardic individual who has generalized abdominal TTP. Will obtain lab work, urine studies, ultrasound and treat the patient symptoms with morphine, crystalloid, Zofran. Currently considering processes such as ectopic , UTI, STI.. 10:35 ED course: CBC remarkable for leukocytosis. Metabolic profile shows appropriate ec2 electrolytes. Ultrasound shows IUD in appropriate location, ovarian follicles noted with possible PCOS noted. No free fluid noted, no abnormal sac appreciated. Pending urine preg and urine studies. Will add on a septic workup given the patient meets SIRS criteria with a leukocytosis and the tachycardia, however patient is no identifiable source at this time, will empirically treat with ceftriaxone . 10:37 ED course: Urine is infectious appearing, consistent with UTI. Appropriate antibiotics ec2 already ordered with ceftriaxone. Urine negative.. 11:05 ED course: I discussed possible empiric therapy for STI, patient agreeable, will give ec2 doxycycline as well. Patient already received ceftriaxone.. 11:15 ED course: Discussed case with radiology, CT abdomen pelvis shows descending urinary ec2 tract infection, possible early pyelonephritis. Will admit for sepsis secondary to UTI.. 12:34 ED course: Pelvic examination performed under nurse supervision, SYLVIA Amaya, some ec2 vaginal discharge appreciated, swab sent otherwise no significant tenderness. Already empirically treated with doxycycline.. 13:17 ED course: EKG obtained, independently reviewed and interpreted by me, shows normal ec2 sinus rhythm, rate of 89, no acute ST segment elevations, nonconcerning intervals.. 12 09:25 Order name: CBC with Diff; Complete Time: 10:34 ec2 12 09:25 Order name: CMP; Complete Time: 10:34 ec2 08/11 09:25 Order name: Test, Urine; Complete Time: 10:37 ec2 08/11 09:25 Order name: UAM; Complete Time: 10:37 ec2 08/11 09:26 Order name: GC (Ghassan/Chl) Probe URINE ec2 08/11 09:26 Order name: Wet Prep ec2 08/11 10:37 Order name: Blood Culture Adult (2) ec2 08/11 10:37 Order name: Lactate w/ 2H reflex if indic.; Complete Time: 12:34 ec2 08/11 10:37 Order name: Protime (+inr); Complete Time: 12:34 ec2 08/11 10:37 Order name: Ptt, Activated; Complete Time: 12:34 ec2 08/11 10:40 Order name: Urine Culture EDMS 08/11 11:59 Order name: ABG Arterial Blood Gas; Complete Time: 12:34 EDMS 08/11 11:59 Order name: Urinalysis w/ reflexes EDMS 08/11 11:59 Order name: Basic Metabolic Panel EDMS 08/11 11:59 Order name: Basic Metabolic Panel EDMS 08/11 11:59 Order name: Basic Metabolic Panel EDMS 08/11 11:59 Order name: Basic Metabolic Panel EDMS 08/11 11:59 Order name: CBC with Automated Diff EDMS 08/11 11:59 Order name: CBC with Automated Diff EDMS 08/11 11:59 Order name: CBC with Automated Diff EDMS 08/11 11:59 Order name: CBC with Automated Diff EDMS 08/11 11:59 Order name: Magnesium EDMS 08/11 11:59 Order name: Magnesium EDMS 08/11 11:59 Order name: Magnesium EDMS 08/11 11:59 Order name: Magnesium EDMS 08/11 11:59 Order name: Phosphorus EDMS 08/11 11:59 Order name: Phosphorus EDMS 08/11 11:59 Order name: Phosphorus EDMS 08/11 11:59 Order name: Phosphorus EDMS 08/11 09:29 Order name: Transvaginal Study Probe; Complete Time: 10:34 EDMS 08/11 09:29 Order name: CT Abd/Pelvis - IV Contrast Only; Complete Time: 11:26 ec2 08/11 10:37 Order name: EKG; Complete Time: 10:37 ec2 08/11 09:25 Order name: IV Saline Lock; Complete Time: 10:06 ec2 08/11 09:25 Order name: Labs collected and sent; Complete Time: 10:06 ec2 08/11 10:37 Order name: Accucheck; Complete Time: 10:51 ec2 08/11 10:37 Order name: Cardiac monitoring; Complete Time: 13:18 ec2 08/11 10:37 Order name: EKG - Nurse/Tech; Complete Time: 13:18 ec2 08/11 10:37 Order name: IV Saline Lock - Large Bore; Complete Time: 13:18 ec2 08/11 10:37 Order name: O2 Per Protocol; Complete Time: 11:37 ec2 08/11 10:37 Order name: O2 Sat Monitoring; Complete Time: 11:37 ec2 08/11 10:37 Order name: Vital Signs; Complete Time: 10:51 ec2 Administered Medications: 10:15 Drug: NS 0.9% IV 1000 ml IV at 1 bolus Per protocol; 1000 mL bolus Route: IV; Rate: 1 db bolus; Site: right antecubital; 12:19 Follow up: Response: No adverse reaction; IV Status: Completed infusion; IV Intake: cm10 1000ml 10:16 Drug: Ondansetron IVP 4 mg IVP once; over 2 minutes Route: IVP; Site: right antecubital;db 14:12 Follow up: Response: No adverse reaction db 10:17 Drug: morphine IVP or IV 4 mg IVP once over 4 mins Route: IVP; Infused Over: 4 mins; db Site: right antecubital; 14:12 Follow up: Response: No adverse reaction db 11:32 Drug: Rocephin IV 1 grams IV at bolus once; Given slow IV push per pharmacy db instructions Route: IV; Rate: bolus; Site: right antecubital; 12:18 Follow up: Response: No adverse reaction; IV Status: Completed infusion; IV Intake: cm10 100ml 13:00 Drug: NS 0.9% IV 1000 ml IV at 1 bolus Per protocol; 1000 mL bolus Route: IV; Rate: 1 db bolus; Site: right antecubital; 14:12 Follow up: Response: No adverse reaction; IV Status: Completed infusion; IV Intake: db 1000ml 13:05 Drug: Doxycycline PO 100 mg PO once Route: PO; db 14:12 Follow up: Response: No adverse reaction db Disposition Summary: 08/11/23 11:17 Hospitalization Ordered Notes: Hospitalization Status: Inpatient Admission ec2 Provider: Iwueke, Izuchukwu ec2 [facility] Condition: Stable ec2 Problem: new ec2 Symptoms: have improved ec2 Bed/Room Type: Standard ec2 Room Assignment: 414(08/11/23 13:16) em1 Diagnosis - UTI/ Urinary tract infection, site not specified ec2 - Sepsis, unspecified organism ec2 Forms: - Medication Reconciliation Form ec2 - SBAR form ec2 - Leadership Thank You Letter ec2 Critical care time excluding procedures: 10:39 Critical care time: Bedside Care: 30 minutes, Consultation: 5 minutes. Total time: 35 ec2 minutes Signatures: Dispatcher [employer] EDMS Altagracia Mercedes RN SYLVIA iw Ashish Jefferson em1 Vesna Archuleta RN RN db Sae King MD MD ec2 Ronny, Monique WARD cm10 Corrections: (The following items were deleted from the chart) 09:27 09:26 Pelvis Complete+US.RAD.BRZ ordered. EDAK EDMS 09:27 09:25 Patient arrives today due to concern for diffuse abdominal pain as well as ec2 dysuria.. ec2 10:47 10:37 ED course: Urine is infectious appearing, consistent with UTI. Appropriate ec2 antibiotics already ordered with ceftriaxone.. ec2 13:16 11:17 ec2 em1 14:10 10:10 Social history: Smoking status: Patient denies any tobacco usage or history of. dbdb
[2023-08-11 11:32] LABS: Protime INR 1.08
[2023-08-11] MEDS ORDERED: NA CHLORIDE 0.9% 50 ML ONE (11:41)
[2023-08-11] MEDS ORDERED: CEFTRIAXONE 1000 MG/VIAL ONE (11:41)
--- NOTE | 2023-08-11 11:50 | P.HP ---
Certification for Inpatient Patient admitted to: Observation With expected LOS: <2 Midnights Patient will require the following post-hospital care: None Practitioner: I am a practitioner with admitting privileges, knowledge of patient current condition, hospital course, and medical plan of care. Services: Services provided to patient in accordance with Admission requirements found in Title 42 Section 412.3 of the Code of Federal Regulations <Leela Sterling - Last Filed: 08/11/23 18:07> Patient History Date of Service: 08/11/23 Reason for admission: UTI, Sepsis History of Present Illness: 28-year-old female presented to the emergency room with the complaints of diffuse abdominal pain as well as dysuria. Patient reports that he has been having generalized abdominal pain for 4 to 5 days. Patient also states that pain has been intermittent and progressively worsening she reports that she is very concerned about her IUD states it was placed approximately 2-1/2 years ago. Patient reports that she has had some associated nausea without vomiting, no change in the bowel patterns. Patient reports that the dysuria as well as a vaginal. Patient states that she does not typically have a vaginal bleeding however has recently had some vaginal bleeding that she has not, she states that she is sexually active. ED course Vital signs blood pressure 120/78, pulse of 106, respirations 16, temperature 98.7, pulse ox 100% on room air. Initial CBC remarkable for leukocytosis. Metabolic profile shows appropriate , electrolytes. Ultrasound shows IUD in appropriate location, ovarian follicles noted with possible PCOS noted. No free fluid noted, no abnormal sac appreciated. Pending. Will add on a septic workup given the patient meets SIRS criteria with a leukocytosis and the tachycardia, empirically treat with ceftriaxone . Admitting the patient diagnosis of urinary tract infection, sepsis Home medications list reviewed: Yes - Past Medical/Surgical History Diabetic: No -: Tonsillectomy -: Primary - Social History Smoking Status: Current some day smoker Counseled patient to stop smoking for: less than 10 minutes Smoking therapy provided: Yes Patient receptive to therapy: Yes Alcohol use: Yes CD- Drugs: No Caffeine use: Yes Place of Residence: Home <AsherTituslizette - Last Filed: 08/11/23 18:07> Date of Service: 08/12/23 <Hakeem Guan - Last Filed: 08/12/23 07:34> Allergies NKDA Allergy (Uncoded 07/26/15 21:07) Unknown No Known Allergies Allergy (Uncoded 08/16/17 14:00) Unknown Home Medications: Mv-Mn/Iron/FA/Herbal/Digestive [ One Tablet] 1 each PO DAILY 05/29/20 Ondansetron [Zofran] 4 mg PO Q6H PRN 05/29/20 Review of Systems 10-point ROS is otherwise unremarkable <Leela Sterling - Last Filed: 08/11/23 18:07> Physical Examination - Physical Exam General: Alert, Oriented x3 HEENT: Atraumatic, Normocephalic Neck: Supple, 2+ carotid pulse no bruit Respiratory: Clear to auscultation bilaterally, Normal air movement Capillary refill: <2 Seconds Gastrointestinal: Normal bowel sounds, Soft and benign Musculoskeletal: No clubbing, No swelling Neurological: Normal gait, Normal speech - Studies Laboratory Data (last 24 hrs) 08/11/23 08/11/23 08/11/23 11:17 10:04 10:04 WBC 14.30 H Hgb 12.3 Hct 36.7 Plt Count 353 PT 11.9 INR 1.08 APTT 32.1 Sodium 140 Potassium 3.9 BUN 11 Creatinine 0.72 Glucose 94 Total Bilirubin 0.2 AST 20 ALT 33 Alkaline Phosphatase 64 <Leela Sterling - Last Filed: 08/11/23 18:07> - Studies Laboratory Data (last 24 hrs) 08/11/23 08/11/23 08/11/23 11:17 10:04 10:04 WBC 14.30 H Hgb 12.3 Hct 36.7 Plt Count 353 PT 11.9 INR 1.08 APTT 32.1 Sodium 140 Potassium 3.9 BUN 11 Creatinine 0.72 Glucose 94 Total Bilirubin 0.2 AST 20 ALT 33 Alkaline Phosphatase 64 <Hakeem Guan - Last Filed: 08/12/23 07:34> Assessment and Plan - Problems (Diagnosis) (1) Sepsis secondary to UTI Current Visit: Yes Status: Acute (2) Tachycardia Current Visit: Yes Status: Acute (3) UTI (urinary tract infection) Current Visit: Yes Status: Acute Qualifiers: Hematuria presence: with hematuria - Plan (1) Sepsis secondary to UTI (2) Tachycardia Current Visit: Yes S Sepsis Sepsis likely secondary to urinary tract infection. Patient presented with fever, tachycardia and nausea. HR is 110/min Breathing normally at room air. BP is maniaining on the desired range. -Meet SIRS critieria due to HR > 90 bpm, , WBC > 12,000 and the suspected source is likely urinary tract. Plan: -Admitting the patient to the hospital - Initial Lactate was 0.6 - Blood cultures drawn before antibiotics were given - Broad spectrum antibiotics started - IV hydration, antibiotic -Monitor electrolytes and replete as needed -No home medications CODE STATUS Full code Dietregular DVT prophylaxisLovenox Discharge Plan: Home Plan to discharge in: 24 Hours - Advance Directives Does patient have a Living Will: No Does patient have a Durable POA for Healthcare: No - Code Status/Comfort Care Code Status Assessed: Yes (full code) Code Status: Full Code Physician Review: Patient Assessed, Agree with Above Assessment and Plan Critical Care: No Time Spent Managing Pts Care (In Minutes): 55 (minutes) <Leela Sterling - Last Filed: 08/11/23 18:07> Physician Review Additional Text: Pt seen and examined. I agree with the note by the ACCOUNTING DIRECTOR. Pt presents with back pain that started a day before this admission. On admission, lab studies show evidence of UTI. Pt is also worried about STI. CT abd shows stool in the transverse and descending colon. A/P UTI: Will continue rocephin and follow up blood cx.Will rule out GC./chlamydia. Constipation: Continue prn miralax. DVT ppx: SCD Code: full <Hakeem Guan - Last Filed: 08/12/23 07:34>
[2023-08-11] MEDS ORDERED: ONDANSETRON 4 MG/2 ML VIAL IV PRN (11:52)
[2023-08-11] MEDS ORDERED: ACETAMINOPHEN 500 MG TAB PO PRN (11:52)
[2023-08-11 12:31] LABS: Arterial Blood Carboxyhemoglob 1.4 % (0-1.5); Blood Gas Oxyhemoglobin 70.5 % (94-97); Blood O2 Saturation 72.7 % (92-98.5)
[2023-08-11] MEDS ORDERED: ENOXAPARIN 40 MG/0.4 ML SQ SCH (13:00)
[2023-08-11] MEDS ORDERED: DOXYCYCLINE 100 MG CAP PO ONE (13:16)
[2023-08-11] MEDS: NA CHLORIDE 0.9% 1,000 ML IV SCH (15:42)
[2023-08-11 18:04] VITALS: BMI 21.2
[2023-08-11] MEDS: ENOXAPARIN 40 MG/0.4 ML SQ SCH (18:16)
[2023-08-11] MEDS: HYDROCODONE/APAP 7.5/325 MG TAB PO PRN (21:18)
[2023-08-12] MEDS: NA CHLORIDE 0.9% 1,000 ML IV SCH ×2 (05:53→10:00)
[2023-08-12] MEDS: HYDROCODONE/APAP 7.5/325 MG TAB PO PRN ×2 (05:55→09:58)
[2023-08-12] MEDS ORDERED: POLYETHYL GLY 3350 17 GM/DOSE PO PRN (07:34)
[2023-08-12 07:40] LABS: Absolute Lymphocytes (CBC) 1.7 K/uL (0.7-4.9); Hematocrit 34.4 % (36.0-45.0); Lymphocytes % 17.7 % (15.3-44.8); MCV 91.2 fL (80-100); MPV 7.2 fL (7.6-11.3); Platelets 320 thou/uL (152-406); RBC Red Blood Cell Count 3.77 M/uL (3.86-4.86)
[2023-08-12 07:53] LABS: Magnesium 1.7 mg/dL (1.6-2.4); Potassium 3.7 mEq/L (3.5-5.1)
[2023-08-12 08:30] VITALS: O2SAT 97
[2023-08-12] MEDS: ENOXAPARIN 40 MG/0.4 ML SQ SCH (09:00)
[2023-08-12] MEDS ORDERED: CEFTRIAXONE 1,000 MG in NA CHLORIDE 0.9% 50 ML IVPB SCH (09:00)
[2023-08-12 12:53] VITALS: BP 119/83; TEMP 97.5
--- NOTE | 2023-08-12 14:52 | P.DS ---
Admission Date: 08/11/23 Discharge Date: 08/12/23 Reason for Admission: UTI, Sepsis - Problems (1) Sepsis secondary to UTI Status: Acute (2) Tachycardia Status: Acute (3) UTI (urinary tract infection) Status: Acute Qualifiers: Hematuria presence: with hematuria Brief History of Present Illness: 28-year-old female presented to the emergency room with the complaints of diffuse abdominal pain as well as dysuria. Patient reports that he has been having generalized abdominal pain for 4 to 5 days. Patient also states that pain has been intermittent and progressively worsening she reports that she is very concerned about her IUD states it was placed approximately 2-1/2 years ago. Patient reports that she has had some associated nausea without vomiting, no change in the bowel patterns. Patient reports that the dysuria as well as a vaginal. Patient states that she does not typically have a vaginal bleeding however has recently had some vaginal bleeding that she has not, she states that she is sexually active. ED course Vital signs blood pressure 120/78, pulse of 106, respirations 16, temperature 98.7, pulse ox 100% on room air. Initial CBC remarkable for leukocytosis. Metabolic profile shows appropriate , electrolytes. Ultrasound shows IUD in appropriate location, ovarian follicles noted with possible PCOS noted. No free fluid noted, no abnormal sac appreciated. Pending. Will add on a septic workup given the patient meets SIRS criteria with a leukocytosis and the tachycardia, empirically treat with ceftriaxone . Admitting the patient diagnosis of urinary tract infection, sepsis Hospital Course: Ms. Bacon is a 28-year-old patient \ who was admitted to the [facility] on on 08/11/2020 for for urinary tract infection and sepsis. Patient was admitted treated with IV fluid, antibiotics. Patient WBC came down normal. On 08/12/2023, patient was seen on morning rounds and deemed medically stable for discharge. Patient was discharged with instructions to schedule follow-up appointments with PCP. Patient was provided prescriptions for ciprofloxacin 500 mg p.o. twice daily for 7 days. The patient was given the opportunity to ask questions and reported no further questions. Furthermore, all questions were answered to the best of my ability. Follow-up PCP in 1 week New prescription Ciprofloxacin 500 mg p.o. twice daily for 7 days Prescription was given to patient <Leela Sterling - Last Filed: 08/12/23 14:53> Admission Date: 08/11/23 Discharge Date: 08/12/23 Hospital Course: Pt seen and examined. I agree with the note by the FERN CUTTER. Ok to discharge pt with oral antibiotics. <ChristineromuloTori rioslamar Paulino - Last Filed: 08/12/23 18:14> Disposition: ROUTINE DISCHARGE Vital Signs/Physical Exam: Temp Pulse Resp BP Pulse Ox 97.5 F 89 16 119/83 97 08/12/23 12:00 08/12/23 12:00 08/12/23 12:00 08/12/23 12:00 08/12/23 12:00 Laboratory Data at Discharge: WBC 9.40 thou/uL (4.3-10.9) 08/12/23 07:16 Hgb 11.7 g/dL (12.0-15.0) L 08/12/23 07:16 Hct 34.4 % (36.0-45.0) L 08/12/23 07:16 Plt Count 320 thou/uL (152-406) 08/12/23 07:16 PT 11.9 SECONDS (9.5-12.5) 08/11/23 11:17 INR 1.08 08/11/23 11:17 APTT 32.1 SECONDS (24.3-36.9) 08/11/23 11:17 Sodium 137 mEq/L (136-145) 08/12/23 07:16 Potassium 3.7 mEq/L (3.5-5.1) 08/12/23 07:16 BUN 8 mg/dL (7-18) 08/12/23 07:16 Creatinine 0.58 mg/dL (0.55-1.02) 08/12/23 07:16 Glucose 116 mg/dL (74-106) H 08/12/23 07:16 Phosphorus 4.0 mg/dL (2.5-4.9) 08/12/23 07:16 Magnesium 1.7 mg/dL (1.6-2.4) 08/12/23 07:16 Total Bilirubin 0.2 mg/dL (0.2-1.0) 08/11/23 10:04 AST 20 U/L (15-37) 08/11/23 10:04 ALT 33 U/L (13-56) 08/11/23 10:04 Alkaline Phosphatase 64 U/L (45-117) 08/11/23 10:04 <Leela Sterling - Last Filed: 08/12/23 14:53> Vital Signs/Physical Exam: Temp Pulse Resp BP Pulse Ox 97.5 F 89 16 119/83 97 08/12/23 12:00 08/12/23 12:00 08/12/23 12:00 08/12/23 12:00 08/12/23 12:00 Laboratory Data at Discharge: WBC 9.40 thou/uL (4.3-10.9) 08/12/23 07:16 Hgb 11.7 g/dL (12.0-15.0) L 08/12/23 07:16 Hct 34.4 % (36.0-45.0) L 08/12/23 07:16 Plt Count 320 thou/uL (152-406) 08/12/23 07:16 PT 11.9 SECONDS (9.5-12.5) 08/11/23 11:17 INR 1.08 08/11/23 11:17 APTT 32.1 SECONDS (24.3-36.9) 08/11/23 11:17 Sodium 137 mEq/L (136-145) 08/12/23 07:16 Potassium 3.7 mEq/L (3.5-5.1) 08/12/23 07:16 BUN 8 mg/dL (7-18) 08/12/23 07:16 Creatinine 0.58 mg/dL (0.55-1.02) 08/12/23 07:16 Glucose 116 mg/dL (74-106) H 08/12/23 07:16 Phosphorus 4.0 mg/dL (2.5-4.9) 08/12/23 07:16 Magnesium 1.7 mg/dL (1.6-2.4) 08/12/23 07:16 Total Bilirubin 0.2 mg/dL (0.2-1.0) 08/11/23 10:04 AST 20 U/L (15-37) 08/11/23 10:04 ALT 33 U/L (13-56) 08/11/23 10:04 Alkaline Phosphatase 64 U/L (45-117) 08/11/23 10:04 <Hakeem Guan - Last Filed: 08/12/23 18:14> <Leela Sterling - Last Filed: 08/12/23 14:53> <Hakeem Guan - Last Filed: 08/12/23 18:14> Home Medications: Mv-Mn/Iron/FA/Herbal/Digestive [ One Tablet] 1 each PO DAILY 05/29/20 Ondansetron [Zofran (Odt)*] 4 mg PO Q6H PRN 05/29/20 Ciprofloxacin HCl [Cipro 500 MG Tablet] 500 mg PO BID 7 Days #14 tab 08/12/23 New Medications: Ciprofloxacin HCl [Cipro 500 MG Tablet] 500 mg PO BID 7 Days #14 tab Physician Discharge Instructions: PROBLEM: UTI GOAL: Clear understanding of disease process INSTRUCTIONS: Ms. Bacon is a 28-year-old patient \ who was admitted to the [facility] on on 08/11/2020 for for urinary tract infection and sepsis. Patient was admitted treated with IV fluid, antibiotics. Patient WBC came down normal. On 08/12/2023, patient was seen on morning rounds and deemed medically stable for discharge. Patient was discharged with instructions to schedule follow-up appointments with PCP. Patient was provided prescriptions for ciprofloxacin 500 mg p.o. twice daily for 7 days. The patient was given the opportunity to ask questions and reported no further questions. Furthermore, all questions were answered to the best of my ability. Follow-up PCP in 1 week New prescription Ciprofloxacin 500 mg p.o. twice daily for 7 days Prescription was given to patient Diet: as tolerated Activity: as tolerated DME DME: Date Ordered: Name of Company: [employer] Services Needed: Name of Company: Date or Referral: IMMUNIZATION Influenza Vaccine Indicated: No Influenza Vaccine Given: Date Given: Pneumonia Vaccine Indicated: No Pneumonia Vaccine Given: Date Given: [ Followup: NONE,NONE [Primary Care Provider] -
[2023-08-13 14:12] LABS: C.trachomatis RNA,TMA Not Detected (Not Detected)
== END 2023-08-12 15:33 | disposition home or self-care (01) ==
LOC: ER 09:08 → ERHOLD 11:51 → 4TH 13:50
PROVIDERS: ADMIT Hospitalist; ATTEND Hospitalist
DX: N39.0 Urinary tract infection, site not specified (principal); A41.9 Sepsis, unspecified organism; F17.210 Nicotine dependence, cigarettes, uncomplicated; R00.0 Tachycardia, unspecified
CPT/HCPCS: 96365; 96361; 93005; 87040 ×2; 87088; 85025 ×2; 81001; 87086; 80048; 36415; 83735; 81025; 84100; 85610; 87210; 83605; 85730; 87077; 87186; 80053; 87590; 87490; 74177; 76830; 82805; 94760 ×2; 96375; 99285; Q9967; J1650; J2405; J7030 ×4; J0696 ×2; G0378

== ENCOUNTER 2024-05-18 01:44 | Emergency (ER) | payer OTHER ==
--- OUTSIDE RECORDS SUMMARY | 2024-05-18 01:48 | XMS REPORT | Continuity of Care Document ---
Author Name Unknown Address [address] [facility] [address] [place] [address] [facility] Address [address] [facility] [address] [place] [address] Care Team Providers Care Pediatric Physiatrist Name Role Phone PHILIP HOWARD Primary Care Physician Unavailab THOMAS Velazquez Attending Clinician Unavailable JENNIFER HAY Attending Clinician Unavail able Jennifer Gonzales Attending Clinician + ANDREW_[email or web address]_S Attending Clinician UnavailSHEYLA Gilbert Attending Clinician Unavailable Thomas Vital MD Attending Clinician [phone] JACKIE MORE Attending Clinician Unavailable PARK SHIPLEY Attending Clinician UnavailPARK Bautista Attending Clinician Unavaillissett wahl Doctor Unassigned, [place] Attending Clinician U Dusty Virgen MD Attending Clinician [phone] Jackie More PA-C Attending Clinician [phone] Nurse, [facility] Attending Clinician Un available Maria L Faust MD, Leonard Attending Clinician + [phone] Only, Adc Test Attending Clinician Unavailable Pob, [facility] Lab Main Attending Clinician Unavailabl e 2, [facility] Lab Attending Clinician Unavailable Ultrasound, Adc Mfm Attending Clinician UnavailOsvaldo Rob MD Attending Clinician [phone] Bob WARD, Karie Nelson Attending Clinician Unavailab david Espinoza SYLWIA, Robyn Puentes Attending Clinician [phone] Pob1, Acute [facility] Attending Clinician Unav ailable Adriane Wang Attending Clinician [phone] ADRIANE CNAAS Attending Clinician Unavailable THOMAS VITAL Admitting Clinician Unavailable [email or web address]_S Admitting Clinician Thomas Vasquez MD Admitting Clinician [phone] Payers Payer Name Policy Type Policy Number Effective Date Expirati on Date Source [place] [facility] [id number] 2020 00:00:00 BCBS [facility] [id number] 2009 00:00:00 MEDICAID [facility] [id number] 2020 00:00:00 [place] [facility] [id number] 2023 00:00:00 Problems Condition Name Condition Details Condition Category Status Onset Date Resolution Date Last Treatment Date Treating Clinician Comments Source Vaginal discharge Vaginal discharge Disease Active 11-24 00:00: 00 [facility] BMI 25.0-25.9, adult BMI 25.0-25.9, adult Disease Active 11-24 00:00: 00 [facility] Presence of intrauteri ne contracept marilyn device Presence of intrauteri ne contracept marilyn device Disease Active 11-24 00:00: 00 [facility] BMI 25.0-25.9, adult BMI 25.0-25.9, adult Disease Active 11-24 00:00: 00 [facility] Stress incontinen ce Stress incontinen ce Disease Active 2020-09 00:00: 00 [facility] Decreased libido Decreased libido Disease Active 2020-09 00:00: 00 [facility] Breakthrou gh bleeding with IUD Breakthrou gh bleeding with IUD Disease Active 2020-09 00:00: 00 [facility] Obesity (BMI 30-39.9) Obesity (BMI 30-39.9) Disease Active 2021-0 3-11 00:00: 00 [facility] 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 Disease Active 2-10 00:00: 00 [facility] Rh negative, antepartum Rh negative, antepartum Disease Active 1-06 00:00: 00 [facility] Previous section Previous section Disease Active 2019-09 0-14 00:00: 00 [facility] Allergies, Adverse Reactions, Alerts Allergy Name Allergy Type Status Severity Reaction(s) Onset Date Inactive Date Treating Clinician Comments Source NO KNOWN ALLERGIE S Drug Class Active [facility] Social History Social Habit Start Date Stop Date Quantity Comments Source ASSERTION [facility] of Social function 2021-11-24 00:00:00 2021-11-24 00:00:00 [facility] Alcohol intake 2021-11-24 00:00:00 2021-11-24 00:00:00 Current non-drinker of alcohol (finding) [facility] Exposure to SARS-CoV-2 (event) 2021-07-13 00:00:00 2021-08-12 15:01:00 Not sure [facility] Tobacco use and exposure 2017-09-26 00:00:00 2017-09-26 00:00:00 Smokeless tobacco non-user [facility] Sex Assigned At 1995 00:00:00 1995 00:00:00 [facility] Smoking Status Start Date Stop Date Source Never smoked tobacco [facility] Medications Ordered Medication Name Filled Medication Name Start Date Stop Date Current Medication? Ordering Clinician Indication Dosage Frequency Signature (SIG) Comments Components Source No known medications 11-24 15:20: 58 No [facility] ibuprofen 600 mg tablet 12-02 00:00: 00 11-24 00:00 :00 No [id number] 600mg Take 1 tablet by mouth every 6 (six) hours as needed (Pain). Take with food or milk. [facility] Immunizations Ordered Immunization Name Filled Immunization Name Date Status Comments Source TDAP 2020-10-01 00:00:00 Completed [facility] TDAP 2020-10-01 00:00:00 Completed [facility] TDAP 2020-10-01 00:00:00 Completed [facility] Rho (d) Immune Globulin 2020-09-16 00:00:00 Completed [facility] Rho (d) Immune Globulin 2020-09-16 00:00:00 Completed [facility] Rho (d) Immune Globulin 2020-09-16 00:00:00 Completed [facility] Rho (d) Immune Globulin 2017-09-28 00:00:00 Completed [facility] Rho (d) Immune Globulin 2017-09-28 00:00:00 Completed [facility] Rho (d) Immune Globulin 2017-09-28 00:00:00 Completed [facility] Rho (d) Immune Globulin Unknown Completed [facility] Rho (d) Immune Globulin Unknown Completed [facility] Rho (d) Immune Globulin Unknown Completed [facility] TDAP Unknown Completed [facility] Vital Signs Vital Name Observation Time Observation Value Comments S ource Systolic blood pressure 2021-11-24 19:21:00 114 mm[Hg] [facility] Diastolic blood pressure 2021-11-24 19:21:00 75 mm[Hg] [facility] Heart rate 2021-11-24 19:21:00 80 /min [facility] Body temperature 2021-11-24 19:21:00 36.61 Lilian [facility] Respiratory rate 2021-11-24 19:21:00 18 /min [facility] Body height 2021-11-24 19:21:00 162.6 cm [facility] Body weight 2021-11-24 19:21:00 67.405 kg [facility] BMI 2021-11-24 19:21:00 25.51 kg/m2 [facility] Oxygen saturation in Arterial blood by Pulse oximetry 2021-11-24 19:21:00 98 /min [facility] Encounters Start Date/Time End Date/Time Encounter Type Admission Type Attending Clinicians Care Facility Care Department Encounter ID Source 2021-07-07 07:07:37 Emergency [facility] [id number] [facility] 2021-07-05 07:37:18 Outpatient P THOMAS VITAL [facility] YOLY [id number] [facility] 2021-07-04 22:32:56 Emergency [facility] [id number] [facility] 2021-07-03 23:56:07 Emergency [facility] [id number] [facility] 2021-07-03 18:58:22 Emergency [facility] [id number] [facility] 2023-08-16 14:30:00 2023-08-16 14:30:00 Outpatient R JENNIFER HAY [facility] [id number] [facility] 2023-08-09 00:00:00 2023-08-09 00:00:00 Telephone Jennifer Hay [facility] NEWSPAPER DELIVERER [facility] ..840.114 350.1.13.10 4.2.7.2.686 [id number] [facility] 2023-07-03 00:00:00 2023-07-03 00:00:00 Outpatient [email or web address] diyala_S [facility] [id number] [facility] 2022-05-06 13:30:00 2022-05-06 13:30:00 Outpatient SHEYLA FORMAN [facility] [id number] [facility] 2022-03-22 00:00:00 2022-03-22 00:00:00 Telephone Thomas Vital [facility] 09.06.840.114 350.1.13.10 4.2.7.2.686 [id number] [facility] 2022-01-27 15:00:00 2022-01-27 15:00:00 Outpatient JACKIE COHEN [facility] [id number] [facility] 2022-01-27 15:00:00 2022-01-27 15:00:00 Outpatient R JACKIE MORE [facility] [id number] [facility] 2022-01-27 15:00:00 2022-01-27 15:00:00 Outpatient R JACKIE MORE [facility] [id number] [facility] 2021-12-24 13:30:00 2021-12-24 13:30:00 Outpatient R SHEYLA FREEDMAN [facility] [id number] [facility] 2021-12-14 13:30:00 2021-12-14 13:30:00 Outpatient R SHEYLA FREEDMAN [facility] [id number] [facility] 2021-12-07 00:00:00 2021-12-07 00:00:00 Telephone Thomas Vital [facility] 1.840.114 350.1.13.10 4.2.7.2.686 [id number] 134 [id number] [facility] 2021-11-24 14:00:00 2021-11-24 14:49:04 Outpatient R P[place] SHIPLEY [facility] [id number] [facility] 2021-11-24 14:00:00 2021-11-24 14:49:04 [facility] 1..114 350.1.13.10 4.2.7.2.686 [id number] [facility] 2021-11-24 00:00:00 2021-11-24 00:00:00 [facility] 1..114 350.1.13.10 4.2.7.2.686 [id number] 134 [id number] [facility] 2021-11-23 00:00:00 2021-11-23 00:00:00 Telephone Thomas Vital [facility] 1.840.114 350.1.13.10 4.2.7.2.686 [id number] [facility] 2021-11-10 13:30:00 2021-11-10 13:30:00 Outpatient R THOMAS VITAL [facility] [id number] [facility] 2021-10-16 00:00:00 2021-10-16 00:00:00 Orders Only Doctor Unassigned, Brenham [facility] 1..114 350.1.13.10 4.2.7.2.686 [id number] [facility] 2021-08-13 14:30:00 2021-08-13 14:30:00 Outpatient R [facility] [id number] [facility] 2021-08-13 14:30:00 2021-08-13 14:30:00 Outpatient R [facility] [id number] [facility] 2021-08-12 15:03:21 2021-08-12 16:15:18 Office Visit Thomas Vital [facility] 1.840.114 350.1.13.10 4.2.7.2.686 [id number] 134 [id number] [facility] 2021-08-12 15:00:00 2021-08-12 16:15:18 Outpatient R VITAL THOMAS [facility] [id number] [facility] 2021-08-12 00:00:00 2021-08-12 00:00:00 Orders Only Doctor Unassigned, Brenham [facility] 1.84.114 350.1.13.10 4.2.7.2.686 [id number] [facility] 2021-07-02 00:00:00 2021-07-02 00:00:00 Telephone [facility] 1.840.114 350.1.13.10 4.2.7.2.686 [id number] 134 [id number] [facility] 2021-06-19 12:18:00 2021-06-19 15:25:00 Emergency Dusty Pinon [facility] 1.2.840.114 350.1.13.10 4.2.7.2.686 [id number] [facility] 2021-02-09 13:30:00 2021-02-09 13:30:00 Outpatient R THOMAS VITAL [facility] [id number] [facility] 2021-01-01 16:01:31 2021-01-01 17:29:57 Office Visit Thomas Vital [facility] nal Building 1.2.840.114 350.1.13.10 4.2.7.2.686 [id number] [facility] 2021-01-01 16:00:00 2021-01-01 16:00:00 Outpatient R ZAHRAA THOMAS [facility] [id number] [facility] 2021-01-01 00:00:00 2021-01-01 00:00:00 Orders Only Doctor Unassigned, Brenham [facility] 1.2.840.114 350.1.13.10 4.2.7.2.686 [id number] [facility] 2020-12-25 15:38:03 2020-12-25 16:33:21 [facility] 1.2.840.114 350.1.13.10 4.2.7.2.686 [id number] [facility] 2020-12-25 15:30:00 2020-12-25 15:30:00 Outpatient R [facility]GENIS [facility] [id number] [facility] 2020-12-11 15:33:47 2020-12-11 16:10:39 Nurse Visit Nurse, [facility] Women[facility] Thomas Vital [facility] Professio nal Building 1.2840.114 350.1.13.10 4.2.7.2.686 [id number] [facility] 2020-12-11 15:30:00 2020-12-11 15:30:00 Outpatient R [facility] [id number] [facility] 2020-12-08 00:00:00 2020-12-08 00:00:00 Telephone Thomas Vital [facility] Professio nal Building 1.2840.114 350.1.13.10 4.2.7.2.686 [id number] [facility] 2020-12-01 07:20:00 2020-12-03 11:55:00 Hospital Encounter Thomas Vital [facility] 1.2840.114 350.1.13.10 4.2.7.2.686 [id number] [facility] 2020-12-01 10:58:00 2020-12-01 12:22:00 Anesthesia Event Mandeep Lisa [facility] 1.2.114 350.1.13.10 4.2.7.2.686 [id number] [facility] 2020-12-01 09:30:00 2020-12-01 09:30:00 [id number] [facility] 2020-12-01 00:00:00 2020-12-01 00:00:00 Orders Only Doctor Unassigned, Brenham [facility] 1.284.114 350.1.13.10 4.2.7.2.686 [id number] [facility] 2020-11-27 15:06:05 2020-11-27 15:21:05 Laboratory Only Only, [facility] Test Thomas Vital [facility] 1.2.840.114 350.1.13.10 4.2.7.2.686 [id number] [facility] 2020-11-27 15:04:47 2020-11-27 15:19:47 Jewelry Designer Visit Pob, Adc Lab Main Thomas Vital [facility] Building 1.2.840.114 350.1.13.10 4.2.7.2.686 [id number] [facility] 2020-11-27 13:36:20 2020-11-27 14:30:59 Routine Visit Thomas Vital [facility] 1.2.840.114 350.1.13.10 4.2.7.2.686 [id number] [facility] 2020-11-27 14:00:00 2020-11-27 14:00:00 Outpatient R THOMAS VITAL [facility] [id number] [facility] 2020-11-27 00:00:00 2020-11-27 00:00:00 Orders Only Doctor Unassigned, Brenham [facility] 1.2.840.114 350.1.13.10 4.2.7.2.686 [id number] [facility] 2020-11-24 14:06:00 2020-11-24 18:05:00 Hospital Encounter Thomas Vital [facility] 1.2.840.114 350.1.13.10 4.2.7.2.686 [id number] [facility] 2020-11-24 00:00:00 2020-11-24 00:00:00 Telephone Thomas Vital [facility] 1.2.840.114 350.1.13.10 4.2.7.2.686 [id number] [facility] 2020-11-20 15:45:16 2020-11-20 16:10:03 Routine Visit Thomas Vital [facility] Building 1.2.840.114 350.1.13.10 4.2.7.2.686 [id number] [facility] 2020-11-20 15:45:00 2020-11-20 15:45:00 [facility] [id number] 2020-11-13 16:15:00 2020-11-13 16:15:00 [facility] [id number] [facility] 2020-11-13 14:20:31 2020-11-13 14:35:31 Jewelry Designer Visit 2, Adc Lab Thomas Vital [facility] Building 1.2.840.114 350.1.13.10 4.2.7.2.686 [id number] [facility] 2020-11-13 13:23:18 2020-11-13 14:17:01 Routine Visit Thomas Vital [facility] 1.2.840.114 350.1.13.10 4.2.7.2.686 [id number] [facility] 2020-11-13 13:30:00 2020-11-13 13:30:00 [facility] [id number] [facility] 2020-10-29 14:16:13 2020-10-29 15:14:33 Routine Visit Argenis Jackie [facility] nal Building 1.2.840.114 350.1.13.10 4.2.7.2.686 [id number] [facility] 2020-10-29 14:15:00 2020-10-29 14:15:00 [facility] [id number] 2020-10-15 15:56:05 2020-10-15 16:40:25 Routine Visit [facility] 1.2.840.114 350.1.13.10 4.2.7.2.686 [id number] [facility] 2020-10-15 16:00:00 2020-10-15 16:00:00 Outpatient R THOMAS VITAL [facility] [id number] [facility] 2020-10-01 15:40:33 2020-10-01 16:40:08 Routine Visit Thadkrysta Jackie [facility] 1.2.840.114 350.1.13.10 4.2.7.2.686 [id number] [facility] 2020-10-01 15:30:00 2020-10-01 15:30:00 Outpatient R YELITZAELIANE JACKIE [facility] [id number] [facility] 2020-09-18 00:00:00 2020-09-18 00:00:00 Telephone ThadJackie chaparro [facility] 1.2.840.114 350.1.13.10 4.2.7.2.686 [id number] 134 [id number] [facility] 2020-09-16 10:25:55 2020-09-16 11:12:44 Nurse Visit Nurse, [facility] Women[facility] Health Thomas Vital [facility] Building 1.2.840.114 350.1.13.10 4.2.7.2.686 [id number] [facility] 2020-09-16 09:22:04 2020-09-16 09:37:04 Jewelry Designer Visit 2, [facility] Lab Thomas Vital [facility] Building 1.2.840.114 350.1.13.10 4.2.7.2.686 [id number] [facility] 2020-09-16 09:15:00 2020-09-16 09:15:00 Outpatient R [facility] [id number] [facility] 2020-09-11 13:45:00 2020-09-11 13:45:00 Outpatient R [facility] [id number] [facility] 2020-09-11 13:04:08 2020-09-11 13:19:08 Jewelry Designer Visit 2, Ad[facility] Lab Thomas Vital [facility] Building 1..840.114 350.1.13.10 4.2.7.2.686 [id number] [facility] 2020-09-10 16:00:53 2020-09-10 17:27:46 Routine Visit Thomas Vital [facility] 1..840.114 350.1.13.10 4.2.7.2.686 [id number] [facility] 2020-09-10 16:15:00 2020-09-10 16:15:00 Outpatient R THOMAS VITAL [facility] [id number] [facility] 2020-08-22 12:59:13 2020-08-22 13:29:13 Jewelry Designer Visit Ultrasound, [facility] 1.2.840.114 350.1.13.10 4.2.7.2.686 [id number] [facility] 2020-08-22 13:00:00 2020-08-22 13:00:00 Outpatient P [facility] [id number] [facility] 2020-08-13 15:38:35 2020-08-13 15:53:35 Routine [facility] 1..840.114 350.1.13.10 4.2.7.2.686 [id number] [facility] 2020-08-13 15:30:00 2020-08-13 15:30:00 Outpatient R JACKIE MORE [facility] [id number] [facility] 2020-07-29 00:00:00 2020-07-29 00:00:00 Telephone Thomas Vital [facility] Building 1..840.114 350.1.13.10 4.2.7.2.686 [id number] [facility] 2020-07-28 00:00:00 2020-07-28 00:00:00 Case Management Thomas Vital [facility] Building 1..840.114 350.1.13.10 4.2.7.2.686 [id number] 134 [id number] [facility] 2020-07-25 13:41:34 2020-07-25 15:25:03 Jewelry Designer Visit Ultrasound, Adc Osvaldo Tomlinson [facility] Building 1..840.114 350.1.13.10 4.2.7.2.686 [id number] [facility] 2020-07-25 14:00:00 2020-07-25 14:00:00 Outpatient P [facility] [id number] [facility] 2020-07-16 13:28:19 2020-07-16 14:17:07 Routine Visit Thomas Vital [facility] Building 1..840.114 350.1.13.10 4.2.7.2.686 [id number] [facility] 2020-07-16 13:00:00 2020-07-16 13:00:00 Outpatient R THOMAS VITAL [facility] [id number] [facility] 2020-07-16 00:00:00 2020-07-16 00:00:00 Orders Only Doctor Unassigned, Brenham [facility] 1.2.840.114 350.1.13.10 4.2.7.2.686 [id number] [facility] 2020-07-11 00:00:00 2020-07-11 00:00:00 Telephone [facility] 1.2.840.114 350.1.13.10 4.2.7.2.686 [id number] [facility] 2020-07-08 00:00:00 2020-07-08 00:00:00 Patient Secure Msg Doctor Unassigned, Brenham [facility] 1.2.840.114 350.1.13.10 4.2.7.2.686 [id number] 134 [id number] [facility] 2020-07-08 00:00:00 2020-07-08 00:00:00 Telephone Thomas Vital [facility] Building 1.2840.114 350.1.13.10 4.2.7.2.686 [id number] [facility] 2020-07-07 00:00:00 2020-07-07 00:00:00 Orders Only Doctor Unassigned, Brenham [facility] 1.2.840.114 350.1.13.10 4.2.7.2.686 [id number] [facility] 2020-07-02 00:00:00 2020-07-02 00:00:00 Telephone Thomas Vital [facility] Building 1.2.840.114 350.1.13.10 4.2.7.2.686 [id number] 134 [id number] [facility] 2020-07-02 00:00:00 2020-07-02 00:00:00 Telephone Thomas Vital [facility] Building 1.2.840.114 350.1.13.10 4.2.7.2.686 [id number] 134 [id number] [facility] 2020-06-30 00:00:00 2020-06-30 00:00:00 Telephone Thomas Vital [facility] Building 1.2.840.114 350.1.13.10 4.2.7.2.686 [id number] 134 [id number] [facility] 2020-06-25 00:00:00 2020-06-25 00:00:00 Letter (Out) Karie Rojas [facility] [id number] [id number] [id number] [id number] [facility] 2020-06-25 00:00:00 2020-06-25 00:00:00 Telephone Thomas Vital [facility] [id number] 350.1.13.10 [id number] [id number] [facility] 2020-06-24 10:46:00 2020-06-24 13:09:00 Emergency AlexisRobyn newton [facility] [id number] [id number] 4.2.7.2.686 [id number] [facility] 2020-06-19 11:48:54 2020-06-19 12:03:54 Jewelry Designer Visit 2, Adc Lab Thomas Vital [facility] [id number] 350.1.13.10 4.2.7.2.686 [id number] [facility] 2020-06-19 11:45:00 2020-06-19 11:45:00 Outpatient R [facility] [id number] [facility] 2020-06-19 00:00:00 2020-06-19 00:00:00 Telephone Thomas Vital [facility] [id number] 350.1.13.10 4.2.7.2.686 [id number] [facility] 2020-06-19 00:00:00 2020-06-19 00:00:00 Orders Only Doctor Unassigned, Brenham [facility] [id number] 350.1.13.10 4.2.7.2.686 [id number] [facility] 2020-06-18 14:07:09 2020-06-18 16:13:03 Initial Visit Thomas Vital [facility] 1.2840.114 350.1.13.10 4.2.7.2.686 [id number] [facility] 2020-06-18 14:15:00 2020-06-18 14:15:00 Outpatient R ZAHRAA [facility] [id number] [facility] 2020-06-18 00:00:00 2020-06-18 00:00:00 Orders Only Doctor Unassigned, Brenham [facility] [id number] 350.1.13.10 4.2.7.2.686 [id number] [facility] 2020-06-17 14:00:00 2020-06-17 14:00:00 Outpatient R THOMAS VITAL [facility] [id number] [facility] 2020-06-11 14:00:00 2020-06-11 14:00:00 Outpatient R ZAHRAA THOMAS [facility] [id number] [facility] 2020-05-28 09:58:00 2020-05-28 11:05:00 Emergency Robyn Espinoza [facility] [id number] 350.1.13.10 4.2.7.2.686 [id number] [facility] 2020-05-28 09:58:00 2020-05-28 11:05:00 Emergency Robyn Espinoza [facility] [id number] 350.1.13.10 4.2.7.2.686 [id number] 2020-02-28 15:50:11 2020-02-28 16:10:11 Urgent Care Pob1, Acute Care Clinic Adriane Canas [facility] Office [facility] 1.840.114 350.1.13.10 4.2.7.2.686 [id number] [facility] 2020-02-28 15:50:11 2020-02-28 16:10:11 Urgent Care Po, Acute Care [facility] Office Building [facility] 1.84.114 350.1.13.10 4.2.7.2.686 [id number] 2020-02-28 16:00:00 2020-02-28 16:00:00 Outpatient R ADRIANE CANAS [facility] [id number] [facility]
[2024-05-18] MEDS ORDERED: IBUPROFEN 400 MG TAB ONE (02:02)
[2024-05-18] MEDS ORDERED: ACETAMINOPHEN 500 MG TAB ONE ×2 (02:02→02:06)
[2024-05-18] MEDS ORDERED: DIPHENHYDRAMINE 25 MG TAB/CAP ONE (02:02)
[2024-05-18] MEDS ORDERED: ONDANSETRON 4 MG (ODT) TAB ONE (02:03)
[2024-05-18] MEDS ORDERED: NA CHLORIDE 0.9% 1,000 ML ONE (02:08)
[2024-05-18 03:02] LABS: SARS-CoV-2 Antigen CONTROL BLUE LINE VIS/BG OK; SARS-CoV-2 Antigen Rapid Res Negative (Negative)
[2024-05-18 03:11] LABS: Anion Gap 5.8 mEq/L (5.0-15.0); Potassium 3.8 mEq/L (3.5-5.1)
--- NOTE | 2024-05-18 03:53 | EDPHYS ---
Physician Documentation [facility] Name: Maricruz Bacon Age: 29 yrs Sex: Female : 1995 Arrival Date: 05/18/2024 Time: 01:44 Bed 5 Private MD: ED Physician Maxwell Centeno HPI: 05/18 01:55 This 29 yrs old Female presents to ER via Unassigned with complaints of sp4 Cough, Congestion, Fever. 04:02 29-year-old female presents with complaint of 4 days of cough congestion fever and sp4 feeling unwell also facial and sinus pressure. 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 - Infectious Disease History:: Denies. - Social history:: Smoking status: Patient reports the use of cigarette tobacco products, denies chronic smoking, but will smoke occasionally, Patient uses alcohol, street drugs, marijuana. - Family history:: not pertinent. ROS: 04:02 Constitutional: Negative for chills, and weight loss, cough, positive congestion, sp4 positive fever, positive feeling unwell, positive sinus pressure 04:02 All other systems are negative, Exam: 04:02 Constitutional: This is a well developed, well nourished patient who is awake, alert, sp4 and in no acute distress. Head/Face: Normocephalic, atraumatic. Eyes: Pupils equal round and reactive to light, extra-ocular motions intact. Lids and lashes normal. Conjunctiva and sclera are not injected. Cornea within normal limits. Periorbital areas with no swelling, redness, or edema. ENT: Nares patent. No nasal discharge, no septal abnormalities noted. Tympanic membranes are normal and external auditory canals are clear. Oropharynx with no redness, swelling, or masses, exudates, or evidence of obstruction, uvula midline. Mucous membranes moist. Neck: Trachea midline, no thyromegaly or masses palpated, and no cervical lymphadenopathy. Supple, full range of motion without nuchal rigidity, or vertebral point tenderness. Chest/axilla: Normal chest wall appearance and motion. Nontender with no deformity. No lesions are appreciated. Cardiovascular: Regular rate and rhythm with a normal S1 and S2. No gallops, murmurs, or rubs. Normal PMI, no JVD. No pulse deficits. Respiratory: Lungs have equal breath sounds bilaterally, clear to auscultation and percussion. No rales, rhonchi or wheezes noted. No increased work of breathing, no retractions or nasal flaring. Abdomen/GI: Soft, with normal bowel sounds. No distension or tympany. No guarding or rebound. No evidence of tenderness throughout. Back: No spinal tenderness. No costovertebral tenderness. Skin: Warm, dry with normal turgor. Normal color with no rashes, no lesions, and no evidence of cellulitis. MS/ Extremity: Pulses equal, no cyanosis. Neurovascular intact. Full, normal range of motion. Neuro: Awake and alert, GCS 15, oriented to person, place, time, and situation. Cranial nerves II-XII grossly intact. Motor strength 5/5 in all extremities. Sensory grossly intact. Psych: Awake, alert, with orientation to person, place and time. Behavior, mood, and affect are within normal limits Vital Signs: 01:55 BP 135 / 95; Pulse 117; Resp 17; Temp 98.6; Pulse Ox 99% ; Weight 61.23 kg; Height 5 bm8 ft. 4 in. ; Pain 5/10; 03:27 BP 116 / 78; Pulse 95; Resp 18; Pulse Ox 98% on R/A; br2 03:44 BP 123 / 80; Pulse 95; Resp 18; Pulse Ox 100% ; br2 01:55 Body Mass Index 23.17 (61.23 kg, 162.56 cm) bm8 01:55 Pain Scale: Adult bm8 MDM: 02:28 Patient medically screened. sp4 04:02 Differential Diagnosis: Obstructed Airway Bronchitis Influenza Upper Respiratory sp4 Infection Sinusitis. Data reviewed: vital signs, nurses notes, lab test result(s), electrolytes, Flu: negative. ED course: Patient had felt improved after medicines. Stable for discharge home. 05/18 01:55 Order name: SARS RAPID; Complete Time: 03:48 sp4 05/18 01:55 Order name: Influenza Screen (a \T\ B); Complete Time: 03:48 sp4 05/18 02:01 Order name: BMP; Complete Time: 03:48 sp4 05/18 02:01 Order name: Test, Serum; Complete Time: 03:48 sp4 05/18 02:01 Order name: Saline Lock; Complete Time: 02:10 sp4 Administered Medications: 02:10 Drug: Ondansetron PO 4 mg PO once Route: PO; bm8 03:26 Follow up: Response: No adverse reaction br2 02:10 Drug: diphenhydrAMINE PO 25 mg PO once Route: PO; bm8 03:26 Follow up: Response: No adverse reaction br2 02:10 Drug: NS 0.9% IV 1000 ml IV at 1 bolus Per protocol; 1000 mL bolus Route: IV; Rate: 1 bm8 bolus; Site: right antecubital; 03:26 Follow up: IV Status: Completed infusion; IV Intake: 1000ml br2 02:11 Drug: Ibuprofen PO 800 mg PO once Route: PO; bm8 03:44 Follow up: Response: No adverse reaction; Pain is decreased br2 02:11 Drug: Acetaminophen PO 1000 mg PO once Route: PO; bm8 03:27 Follow up: Response: No adverse reaction br2 03:28 Follow up: Response: Pain is decreased br2 Disposition Summary: 05/18/24 03:52 Discharge Ordered Notes: Location: Home sp4 Problem: new sp4 Symptoms: have improved sp4 Condition: Stable sp4 Diagnosis - Acute sinusitis, unspecified sp4 - Nasal congestion sp4 - Acute upper respiratory infection, unspecified sp4 Followup: sp4 - With: Private Physician - When: 7 - 10 days - Reason: Recheck today's complaints Discharge Instructions: - Discharge Summary Sheet sp4 - Upper Respiratory Infection, Adult, [id number] sp4 Forms: - Patient Portal Instructions sp4 Prescriptions: - phenylephrine HCl 5 mg Oral tablet - take 1 tablet ORAL route every 6 hours PRN congestion; 40 tablet; Refills: 0, sp4 Product Selection Permitted - Ibuprofen 600 mg Oral Tablet - take 1 tablet ORAL route every 6 hours As needed take with food; 30 tablet; sp4 Refills: 0, Product Selection Permitted - Zithromax Z-Truman 250 mg Oral Tablet - take 1 tablet ORAL route as directed for 5 days Day 1 - take two (2) tablets sp4 one time. Day 2, 3, 4 , 5 take one (1) tablet once daily.; 6 tablet; Refills: 0, Product Selection Permitted - ondansetron 8 mg Oral Tablet,disintegrating - take 1 tablet ORAL route every 8 hours PRN nausea; 30 tablet; Refills: 0, sp4 Product Selection Permitted Signatures: Dispatcher [employer] EDMaxwell Jorgensen MD MD sp4 Mak Mae RN RN bm8 Leanne Sebastian RN br2 Corrections: (The following items were deleted from the chart) 02:02 02:02 TEST, SERUM+SC.LAB.BRZ ordered. EDMS EDMS
--- NOTE | 2024-05-18 03:53 | ER ---
Nurse's Notes [facility] Name: Maricruz Bacon Age: 29 yrs Sex: Female : 1995 Arrival Date: 05/18/2024 Time: 01:44 Bed 5 Private MD: Diagnosis: Acute sinusitis, unspecified;Nasal congestion;Acute upper respiratory infection, unspecified Presentation: 05/18 01:55 Chief complaint: Patient states: I had cough cold congestion and chills for three days, bm8 headache that comes and goes and sinus pressure. Coronavirus screen: Vaccine status: Patient reports being unvaccinated. Ebola Screen: Patient negative for fever greater than or equal to 101.5 degrees Fahrenheit, and additional compatible Ebola Virus Disease symptoms Patient denies exposure to infectious person. Patient denies travel to an Ebola-affected area in the 21 days before illness onset. No symptoms or risks identified at this time. Resp Distress? No respiratory distress is noted at this time. Initial Sepsis Screen: Does the patient have a suspected source of infection?. Initial Sepsis Screen: Does the patient meet any 2 criteria? HR > 90 bpm. No. Patient's initial sepsis screen is negative. Does the patient have a suspected source of infection? No. Patient's initial sepsis screen is negative. Risk Assessment: Do you want to hurt yourself or someone else? Patient reports no desire to harm self or others. Onset of symptoms was May 15, 2024 at 08:00. 01:55 Method Of Arrival: Ambulatory bm8 01:55 Acuity: DELLA 3 bm8 Triage Assessment: 01:57 General: Appears in no apparent distress. comfortable, Behavior is calm, cooperative, bm8 appropriate for age. Pain: Complains of pain in chest Pain currently is 5 out of 10 on a pain scale. EENT: Nares are clear bilaterally Reports nasal congestion. Neuro: No deficits noted. Level of Consciousness is awake, alert, obeys commands, Oriented to person, place, time, situation, Appropriate for age. Cardiovascular: No deficits noted. Reports since chest congestion not chest pain Heart tones S1 S2 present Capillary refill < 3 seconds Patient's skin is warm and dry. Respiratory: Reports cough that is non-productive, Airway is patent Respiratory effort is even, unlabored, Respiratory pattern is regular, symmetrical, Breath sounds are clear bilaterally. GI: No signs and/or symptoms were reported involving the gastrointestinal system. : No signs and/or symptoms were reported regarding the genitourinary system. Derm: No signs and/or symptoms reported regarding the dermatologic system. Musculoskeletal: No signs and/or symptoms reported regarding the musculoskeletal system. 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 - Infectious Disease History:: Denies. - Social history:: Smoking status: Patient reports the use of cigarette tobacco products, denies chronic smoking, but will smoke occasionally, Patient uses alcohol, street drugs, marijuana. - Family history:: not pertinent. Screenin:00 [facility] ED Fall Risk Assessment (Adult) History of falling in the last 3 months, bm8 including since admission No falls in past 3 months (0 pts) Confusion or Disorientation No (0 pts) Intoxicated or Sedated No (0 pts) Impaired Gait No (0 pts) Mobility Assist Device Used No (0 pt) Altered Elimination No (0 pt) Score/Fall Risk Level 0 - 2 = Low Risk Oriented to surroundings, Maintained a safe environment, Educated pt \T\ family on fall prevention, incl call for assistance when getting out of bed, Assessed \T\ reinforced patient's understanding of fall precautions, Hourly rounding (assess needs \T\ fall precautionary measures) done, Used ambulatory aids as needed (educated on \T\ assisted with), Used gait belt as appropriate. Abuse screen: Denies threats or abuse. Nutritional screening: No deficits noted. Tuberculosis screening: No symptoms or risk factors identified. Vital Signs: 01:55 BP 135 / 95; Pulse 117; Resp 17; Temp 98.6; Pulse Ox 99% ; Weight 61.23 kg; Height 5 bm8 ft. 4 in. ; Pain 5/10; 03:27 BP 116 / 78; Pulse 95; Resp 18; Pulse Ox 98% on R/A; br2 03:44 BP 123 / 80; Pulse 95; Resp 18; Pulse Ox 100% ; br2 01:55 Body Mass Index 23.17 (61.23 kg, 162.56 cm) bm8 01:55 Pain Scale: Adult bm8 ED Course: 01:49 Patient arrived in ED. gm2 01:55 Maxwell Centeno MD is Attending Physician. sp4 01:55 Mak Mae, RN is Primary Nurse. bm8 01:57 Triage completed. bm8 01:57 Arm band placed on right wrist. bm8 02:00 Patient has correct armband on for positive identification. Bed in low position. Call bm8 light in reach. Side rails up X 1. Adult w/ patient. Client placed on continuous cardiac and pulse oximetry monitoring. NIBP monitoring applied. Pulse ox on. NIBP on. Door closed. Noise minimized. Warm blanket given. Head of bed elevated. 02:00 No provider procedures requiring assistance completed. COVID swab sent to lab. Flu bm8 and/or RSV swab sent to lab. Strep swab sent to lab. 02:11 Inserted saline lock: 20 gauge in right antecubital area, using aseptic technique. bm8 Blood collected. Flushed with 10 mL NS. Patient maintains SpO2 saturation greater than 95% on room air. 02:18 Inserted saline lock: 20 gauge in right antecubital area, using aseptic technique. br2 02:30 IV discontinued, inflitrated. br2 02:30 Inserted saline lock: 22 gauge in left antecubital area, using aseptic technique. br2 03:15 Primary Nurse role handed off by Mak Mae, RN br2 03:15 Leanne Sebastian, RN is Primary Nurse. br2 04:12 Patient did not have IV access during this emergency room visit. IV discontinued, br2 intact, No redness/swelling at site. Pressure dressing applied. 04:13 Provided Education on: discharge instructions and new rx. br2 Administered Medications: 02:10 Drug: Ondansetron PO 4 mg PO once Route: PO; bm8 03:26 Follow up: Response: No adverse reaction br2 02:10 Drug: diphenhydrAMINE PO 25 mg PO once Route: PO; bm8 03:26 Follow up: Response: No adverse reaction br2 02:10 Drug: NS 0.9% IV 1000 ml IV at 1 bolus Per protocol; 1000 mL bolus Route: IV; Rate: 1 bm8 bolus; Site: right antecubital; 03:26 Follow up: IV Status: Completed infusion; IV Intake: 1000ml br2 02:11 Drug: Ibuprofen PO 800 mg PO once Route: PO; bm8 03:44 Follow up: Response: No adverse reaction; Pain is decreased br2 02:11 Drug: Acetaminophen PO 1000 mg PO once Route: PO; bm8 03:27 Follow up: Response: No adverse reaction br2 03:28 Follow up: Response: Pain is decreased br2 Medication: 02:00 VIS not applicable for this client. bm8 Intake: 03:26 IV: 1000ml; Total: 1000ml. br2 Outcome: 03:52 Discharge ordered by . chad 04:13 Discharged to home ambulatory, br2 04:13 Condition: good 04:13 Discharge instructions given to patient, 04:13 Patient left the ED. br2 Signatures: Maxwell Centeno MD MD sp4 Ashli Jha gm2 Mak Mae, RN RN bm8 Leanne Sebastian RN RN br2
[2024-05-18 04:47] VITALS: TEMP 98.6
[2024-05-18 04:49] VITALS: BP 123/80; O2SAT 100
== END 2024-05-18 04:13 | disposition home or self-care (01) ==
LOC: ER 01:44
DX: J01.90 Acute sinusitis, unspecified (principal); R09.81 Nasal congestion; Z11.52 Encounter for screening for COVID-19
CPT/HCPCS: 80048; 36415; 84703; 87804 ×2; 96360; 99284; 87811; Q0162; J7030

== ENCOUNTER 2024-07-08 10:38 | Emergency (ER) | payer OTHER ==
[2024-07-08] MEDS ORDERED: METHYLPREDNISOLONE 125 MG INJ ONE (11:26)
[2024-07-08] MEDS ORDERED: DIPHENHYDRAMINE 50 MG/ML VIAL ONE (11:26)
[2024-07-08] MEDS ORDERED: KETOROLAC 30 MG/ML INJ ONE (11:27)
[2024-07-08 11:32] LABS: Absolute Lymphocytes (CBC) 0.7 K/uL (0.7-4.9); Absolute Monocytes 0.3 K/uL (0.1-1.3); Absolute Neutrophil 4.9 K/uL (1.8-8.0); Basophils % 0.5 % (0-1.3); Eosinophils % 0.6 % (0-4.4); Hematocrit 34.5 % (36.0-45.0); Hemoglobin 11.2 g/dL (12.0-15.0); Lymphocytes % 11.9 % (15.3-44.8); MCH 27.2 pg (27.0-35.0); MCHC 32.5 g/dL (32.0-36.0); MCV 83.9 fL (80-100); MPV 6.9 fL (7.6-11.3); Monocytes % 4.4 % (3.3-12.3); Neutrophils % 82.6 % (41.7-73.7); Platelets 311 thou/uL (152-406); RBC Red Blood Cell Count 4.11 M/uL (3.86-4.86)
[2024-07-08 11:51] LABS: Albumin 3.4 g/dL (3.4-5.0); Albumin/Globulin Ratio 0.9 (1.1-1.8); Bilirubin Total 0.2 mg/dL (0.2-1.0); Globulin 3.7 g/dL (2.3-3.5); Protein, Total 7.1 g/dL (6.4-8.2)
--- NOTE | 2024-07-08 12:22 | RAD REPORT ---
EXAMINATION: CT HEAD WITHOUT CONTRAST CLINICAL INDICATION: Female, 29 years old.HEADACHE TECHNIQUE: Axial CT images from the skull base to the vertex without intravenous contrast. Coronal an d sagittal reformatted images were created from the data set. One or more of the following dose reduction techniques were used: Automated exposure control, adjustment of the mA and/or kV according to patient size, and/or iterative reconstruction. Unless otherwise specified, incidental findings do not require dedicated imaging follow-up. [id number]. COMPARISON: No prior exam. FINDINGS: INTRACRANIAL: No acute intracranial hemorrhage. No hydrocephalus. No mass effect or midline shift. No significant white matter disease. Low-lying cerebellar tonsils. VASCULATURE: No visualized abnormalities in the arteries or dural venous sinuses. SCALP/SKULL: No significant soft tissue or osseous abnormalities. SINUSES: The visualized paranasal sinuses and mastoid air cells are predominantly clear. IMPRESSION: No acute intracranial abnormality.
--- NOTE | 2024-07-08 12:56 | ER ---
Nurse's Notes [facility] Name: Maricruz Bacon Age: 29 yrs Sex: Female : 1995 Arrival Date: 07/08/2024 Time: 10:38 Bed 2 Private MD: Diagnosis: Headache, allergic reaction, urticaria Presentation: 07/08 10:54 Chief complaint: Patient states: had an abscess on her tooth with pain X 1 month, tooth iw pain is gone, rash started yesterday, took an antibiotic pill from [place] yesterday , and she has a headache X 2 days. Coronavirus screen: At this time, the client does not indicate any symptoms associated with coronavirus-19. Ebola Screen: No symptoms or risks identified at this time. Initial Sepsis Screen: Does the patient meet any 2 criteria? No. Patient's initial sepsis screen is negative. Does the patient have a suspected source of infection? No. Patient's initial sepsis screen is negative. Risk Assessment: Do you want to hurt yourself or someone else? Patient reports no desire to harm self or others. Onset of symptoms was July 06, 2024. 10:54 Method Of Arrival: Ambulatory iw 10:54 Acuity: DELLA 3 iw Triage Assessment: 13:01 Headache History: The patient has had previous headaches and this one is similar to me1 previous episodes. 13:02 Pain: Pain at worst was 10 out of 10 on a pain scale. me1 13:02 Pain: Pain began gradually. me1 13:02 Neuro: Level of Consciousness is awake, alert, obeys commands, Oriented to person, me1 place, time, situation, Appropriate for age. 13:02 Pain: Also complains of no other associated symptoms. 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 - Infectious Disease History:: Denies. - Social history:: Smoking status: Patient reports the use of cigarette tobacco products, Reported history of juuling and/or vaping. Screenin:01 [facility] ED Fall Risk Assessment (Adult) History of falling in the last 3 months, ll1 including since admission No falls in past 3 months (0 pts) Confusion or Disorientation No (0 pts) Intoxicated or Sedated No (0 pts) Impaired Gait No (0 pts) Mobility Assist Device Used No (0 pt) Altered Elimination No (0 pt) Score/Fall Risk Level 0 - 2 = Low Risk Maintained a safe environment, Hourly rounding (assess needs \T\ fall precautionary measures) done. Abuse screen: Denies threats or abuse. Nutritional screening: No deficits noted. Tuberculosis screening: No symptoms or risk factors identified. Assessment: 11:01 General: Appears in no apparent distress. Behavior is calm, cooperative, appropriate ll1 for age. Pain: Complains of pain in head Quality of pain is described as aching. Derm: Reports rash started after taking a antibiotic from [place]. 11:35 Reassessment: No changes from previously documented assessment. Patient and/or family ll1 updated on plan of care and expected duration. Pain level reassessed. Patient is alert, oriented x 3, equal unlabored respirations, skin warm/dry/pink. Vital Signs: 10:54 BP 130 / 89; Pulse 103; Resp 18; Temp 97.6(TE); Pulse Ox 99% on R/A; Weight 63.5 kg; iw Height 5 ft. 4 in. ; Pain 9/10; 13:05 BP 123 / 79; Pulse 97; Resp 16; Temp 98.1; Pulse Ox 100% ; me1 10:54 Body Mass Index 24.03 (63.50 kg, 162.56 cm) iw 10:54 Pain Scale: Adult iw ED Course: 10:41 Patient arrived in ED. im 10:45 Halima Akers MD is Attending Physician. sp3 10:56 Triage completed. iw 10:56 Arm band placed on. iw 11:01 Modesto Lee, SYLVIA is Primary Nurse. ll1 11:09 Patient has correct armband on for positive identification. Bed in low position. ll1 11:20 Missed attempt(s): 22 gauge in right antecubital area. Bleeding controlled, band aid ll1 applied, catheter tip intact. 11:22 Inserted saline lock: 22 gauge in left antecubital area, using aseptic technique. Blood ll1 collected. Flushed with 10 mL NS. 11:35 Warm blanket given. ll1 12:05 Provided Education on: POC. Verbalized understanding. . me1 12:15 CT Head Brain wo Cont In Process Unspecified. EDMS 13:01 No provider procedures requiring assistance completed. me1 13:11 IV discontinued, intact, bleeding controlled, No redness/swelling at site. Pressure me1 dressing applied. Administered Medications: 11:34 Drug: diphenhydrAMINE IVP 12.5 mg IVP once Route: IVP; Site: left antecubital; 1 13:01 Follow up: Response: No adverse reaction me1 11:34 Drug: MethylPrednisoLONE IVP 125 mg IVP once Route: IVP; Site: left antecubital; ll1 13:00 Follow up: Response: No adverse reaction me1 11:34 Drug: Ketorolac IVP 15 mg IVP once Route: IVP; Site: left antecubital; ll1 13:00 Follow up: Response: No adverse reaction; Pain is decreased me1 Medication: 11:02 VIS not applicable for this client. 1 Outcome: 12:56 Discharge ordered by . cherelle 13:11 Discharged to home ambulatory, with significant other, me1 13:11 Condition: stable 13:11 Discharge instructions given to patient, significant other, Instructed on discharge instructions, follow up and referral plans. medication usage, Demonstrated understanding of instructions, follow-up care, medications, Prescriptions given X 1, 13:11 Patient left the ED. me1 Signatures: Dispatcher [employer] Altagracia Thomas RN RN iw Modesto Lee RN RN ll1 Halima Akers MD MD sp3 Mago Sullivan Michelle, RN RN me1 Corrections: (The following items were deleted from the chart) 11:03 10:54 BP 130 / 89; Pulse 103bpm; Resp 18bpm; Pulse Ox 99% RA; 63.5 kg; Height 5 ft. 4 iw in.; BMI: 24.0; Pain 05/15, Adult; iw
--- NOTE | 2024-07-08 12:56 | EDPHYS ---
Physician Documentation [facility] Name: Maricruz Bacon Age: 29 yrs Sex: Female : 1995 Arrival Date: 07/08/2024 Time: 10:38 Bed 2 Private MD: ED Physician Halima Akers HPI: 07/08 11:36 This 29 yrs old Female presents to ER via Ambulatory with complaints of Rash, Headache. sp3 11:36 29-year-old female with no past medical history except for dental infection that she sp3 has been battling off-and-on after which she has been on 2 courses of Augmentin now presents with headache and body rash after taking "a [place] antibiotic". Patient states it was "green and white" but cannot give any further information as to what it was. Patient has urticaria type rash throughout body. No prior known drug allergies. She denies any airway compromise, difficulty breathing, neck pain, chest pain, shortness of breath, trauma, bleeding, or any other signs or symptoms on ROS at this time. She feels her head ache is from her job but cannot tell for certain states it is quite severe. . 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 - Infectious Disease History:: Denies. - Social history:: Smoking status: Patient reports the use of cigarette tobacco products, Reported history of juuling and/or vaping. ROS: 11:38 Constitutional: Negative for fever, chills, and weight loss, Eyes: Negative for injury, sp3 pain, redness, and discharge, ENT: Negative for injury, pain, and discharge, Neck: Negative for injury, pain, and swelling, Cardiovascular: Negative for chest pain, palpitations, and edema, Respiratory: Negative for shortness of breath, cough, wheezing, and pleuritic chest pain, Back: Negative for injury and pain, MS/Extremity: Negative for injury and deformity, Skin: Negative for injury, rash, and discoloration, Neuro: Negative for headache, weakness, numbness, tingling, and seizure, Psych: Negative for depression, anxiety, suicide ideation, homicidal ideation, and hallucinations, Allergy/Immunology: Negative for hives, rash, and allergies, Endocrine: Negative for neck swelling, polydipsia, polyuria, polyphagia, and marked weight changes, 11:38 All other systems are negative, Exam: 11:38 Constitutional: This is a well developed, well nourished patient who is awake, alert, sp3 and in no acute distress. Head/Face: Normocephalic, atraumatic. Eyes: Pupils equal round and reactive to light, extra-ocular motions intact. Lids and lashes normal. Conjunctiva and sclera are non-icteric and not injected. Cornea within normal limits. Periorbital areas with no swelling, redness, or edema. Neck: Trachea midline, no thyromegaly or masses palpated, and no cervical lymphadenopathy. Supple, full range of motion without nuchal rigidity, or vertebral point tenderness. No Meningismus. Chest/axilla: Normal chest wall appearance and motion. Nontender with no deformity. No lesions are appreciated. Cardiovascular: Regular rate and rhythm with a normal S1 and S2. No gallops, murmurs, or rubs. Normal PMI, no JVD. No pulse deficits. Respiratory: Lungs have equal breath sounds bilaterally, clear to auscultation and percussion. No rales, rhonchi or wheezes noted. No increased work of breathing, no retractions or nasal flaring. Abdomen/GI: Soft, non-tender, with normal bowel sounds. No distension or tympany. No guarding or rebound. No evidence of tenderness throughout. Back: No spinal tenderness. No costovertebral tenderness. Full range of motion. MS/ Extremity: Pulses equal, no cyanosis. Neurovascular intact. Full, normal range of motion. Neuro: Awake and alert, GCS 15, oriented to person, place, time, and situation. Cranial nerves II-XII grossly intact. Motor strength 5/5 in all extremities. Sensory grossly intact. Cerebellar exam normal. Normal gait. Psych: Awake, alert, with orientation to person, place and time. Behavior, mood, and affect are within normal limits. 11:38 ENT: Poor dentition. Initial heart rate 103 but now is in the 80s.. 11:40 Skin: Diffuse urticarial type rash. No airway involvement or swelling.. sp3 Vital Signs: 10:54 BP 130 / 89; Pulse 103; Resp 18; Temp 97.6(TE); Pulse Ox 99% on R/A; Weight 63.5 kg; iw Height 5 ft. 4 in. ; Pain 9/10; 13:05 BP 123 / 79; Pulse 97; Resp 16; Temp 98.1; Pulse Ox 100% ; me1 10:54 Body Mass Index 24.03 (63.50 kg, 162.56 cm) iw 10:54 Pain Scale: Adult iw MDM: 11:01 Medical Screening Exam initiated sp3 11:40 Data reviewed: vital signs, nurses notes, lab test result(s), radiologic studies. ED sp3 course: 29-year-old female with urticaria and allergic reaction from unknown medication coupled with headache. Workup will include CT scan of the head, labs and supportive care with Benadryl and Solu-Medrol IV to treat the urticaria. Disposition probable discharge once symptoms are resolved and assuming workup is negative.. 12:55 ED course: Workup negative and has improved. CT scan head negative. We will safely sp3 discharge home on prednisone and OTC Benadryl.. 07/08 11:12 Order name: CBC with Diff; Complete Time: 12:54 sp3 07/08 11:12 Order name: CMP; Complete Time: 12:54 sp3 07/08 11:12 Order name: CT Head Brain wo Cont; Complete Time: 12:54 sp3 07/08 11:12 Order name: IV Saline Lock; Complete Time: 11:12 sp3 07/08 11:12 Order name: Labs collected and sent; Complete Time: 11:12 sp3 Administered Medications: 11:34 Drug: diphenhydrAMINE IVP 12.5 mg IVP once Route: IVP; Site: left antecubital; ll1 13:01 Follow up: Response: No adverse reaction me1 11:34 Drug: MethylPrednisoLONE IVP 125 mg IVP once Route: IVP; Site: left antecubital; ll1 13:00 Follow up: Response: No adverse reaction me1 11:34 Drug: Ketorolac IVP 15 mg IVP once Route: IVP; Site: left antecubital; ll1 13:00 Follow up: Response: No adverse reaction; Pain is decreased me1 Disposition Summary: 07/08/24 12:56 Discharge Ordered Notes: Location: Home sp3 Condition: Stable sp3 Diagnosis - Headache, allergic reaction, urticaria sp3 Followup: sp3 - With: Private Physician - When: Upon discharge from the Emergency Department - Reason: Continuance of care Discharge Instructions: - Discharge Summary Sheet sp3 - Hives sp3 Forms: - Medication Reconciliation Form sp3 - Antibiotic Education sp3 - Prescription Opioid Use sp3 - Patient Portal Instructions sp3 - Leadership Thank You Letter sp3 Prescriptions: - Prednisone 20 mg Oral Tablet - take 2 tablets ORAL route once daily for 5 days; 10 tablet; Refills: 0, Product sp3 Selection Permitted Signatures: 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 [facility] EDMS 11:12 11:12 COMPREHENSIVE METABOLIC PANEL+C.LAB.BRZ ordered. [facility] EDMS 11:12 11:12 Test, Urine+UC.LAB.BRZ ordered. [facility] EDMS 11:12 11:12 Urinalysis+U.LAB.BRZ ordered. [facility] EDMS 11:40 11:38 Constitutional: This is a well developed, well nourished patient who is awake, sp3 alert, and in no acute distress. Head/Face: Normocephalic, atraumatic. Eyes: Pupils equal round and reactive to light, extra-ocular motions intact. Lids and lashes normal. Conjunctiva and sclera are non-icteric and not injected. Cornea within normal limits. Periorbital areas with no swelling, redness, or edema. Neck: Trachea midline, no thyromegaly or masses palpated, and no cervical lymphadenopathy. Supple, full range of motion without nuchal rigidity, or vertebral point tenderness. No Meningismus. Chest/axilla: Normal chest wall appearance and motion. Nontender with no deformity. No lesions are appreciated. Cardiovascular: Regular rate and rhythm with a normal S1 and S2. No gallops, murmurs, or rubs. Normal PMI, no JVD. No pulse deficits. Respiratory: Lungs have equal breath sounds bilaterally, clear to auscultation and percussion. No rales, rhonchi or wheezes noted. No increased work of breathing, no retractions or nasal flaring. Abdomen/GI: Soft, non-tender, with normal bowel sounds. No distension or tympany. No guarding or rebound. No evidence of tenderness throughout. Back: No spinal tenderness. No costovertebral tenderness. Full range of motion. Skin: Warm, dry with normal turgor. Normal color with no rashes, no lesions, and no evidence of cellulitis. MS/ Extremity: Pulses equal, no cyanosis. Neurovascular intact. Full, normal range of motion. Neuro: Awake and alert, GCS 15, oriented to person, place, time, and situation. Cranial nerves II-XII grossly intact. Motor strength 5/5 in all extremities. Sensory grossly intact. Cerebellar exam normal. Normal gait. Psych: Awake, alert, with orientation to person, place and time. Behavior, mood, and affect are within normal limits. sp3
[2024-07-08 13:57] VITALS: BP 123/79; TEMP 98.1; O2SAT 100
== END 2024-07-08 13:11 | disposition home or self-care (01) ==
LOC: ER 10:38
DX: R51.9 Headache, unspecified (principal); L50.9 Urticaria, unspecified; Z72.0 Tobacco use
CPT/HCPCS: 85025; 36415; 80053; 70450; 96375; 96374; 99284; J1200; J2919